=== PATIENT | female | born 1960 | race Caucasian/White ===

== ENCOUNTER 2020-01-20 09:54 | Outpatient (CLI) | payer OTHER, SELFPAY ==
--- NOTE | ~2020-01-20 | MM_ITS ---
EXAMINATION: MM screening [facility] BI w patricia HISTORY: Screening mammogram TECHNIQUE: Craniocaudal and mediolateral oblique 3-D tomosynthesis images were obtained and synthetic 2-D images were generated. CAD analysis was submitted and interpreted. COMPARISON: 10/13/2015, 05/09/2012, 02/13/2011 BREAST PARENCHYMAL COMPOSITION: There are scattered areas of fibroglandular density. FINDINGS: RIGHT BREAST: There is a possible mass in the middle third of the central, slightly outer breast. LEFT BREAST: There is no evidence of suspicious mass, calcification, or architectural distortion to s uggest malignancy. There has been no significant interval change. IMPRESSION: 1. Possible right breast mass. 2. Additional mammographic views and possible breast ultrasound are recommended. BI-RADS Category 0: Incomplete: Needs additional imaging evaluation. Reviewed, dictated and finalized at location A. HAMMERER IMPRESSION: 1. Possible right breast mass. 2. Additional mammographic views and possible breast ultrasound are recommended . BI-RADS Category 0: Incomplete: Needs additional imaging evaluation.
== END 2020-01-20 09:55 | disposition home or self-care (01) ==
LOC: ANHIMG 09:57
PROVIDERS: PCP Internal Medicine; Visit Provider Nurse Practitioner
DX: Z12.31 Encounter for screening mammogram for malignant neoplasm of breast (principal); R92.8 Other abnormal and inconclusive findings on diagnostic imaging of breast
CPT/HCPCS: 77063; 77067

== ENCOUNTER 2020-02-19 13:10 | Outpatient (CLI) | payer OTHER, SELFPAY ==
--- NOTE | ~2020-02-19 | MMUS_ITS ---
EXAMINATION: MM diagnostic mammo unilat RT, US breast RT limited HISTORY: Follow-up possible right breast mass TECHNIQUE: Additional 3-D tomosynthesis images of the right breast were performed and synthetic 2-D i mages were generated. CAD analysis was submitted and interpreted. High resolution right breast ultras ound was performed. COMPARISON: Comparison to multiple prior studies sequentially, with oldest reviewed study dated 10/2011. BREAST PARENCHYMAL COMPOSITION: Breast composed of scattered areas of fibroglandular density. FINDINGS: MAMMOGRAPHIC FINDINGS: There is a focal asymmetry laterally in the right breast on CC view, middle third with no definite co rresponding abnormality by medial lateral or MLO views. ULTRASOUND: Right breast ultrasound: There is a normal heterogeneous echotexture without focal solid or cystic ma ss. IMPRESSION: 1. Focal asymmetry laterally in the right breast on CC view without corresponding sonographic abnorma lity. 2. Recommend 6 month follow-up diagnostic right mammogram BI-RADS category 3, probably benign findings. Reviewed, dictated and finalized at location A. DITION SUPERVISOR IMPRESSION: 1. Focal asymmetry laterally in the right breast on CC view without correspondi ng sonographic abnormality. 2. Recommend 6 month follow-up diagnostic right mammogram BI-RADS category 3, probably benign findings.
== END 2020-02-19 13:11 | disposition home or self-care (01) ==
LOC: ANHIMG 13:12
PROVIDERS: PCP Internal Medicine; Visit Provider Nurse Practitioner
DX: N63.10 Unspecified lump in the right breast, unspecified quadrant (principal); M81.0 Age-related osteoporosis without current pathological fracture; R92.8 Other abnormal and inconclusive findings on diagnostic imaging of breast
CPT/HCPCS: 76642; 77065

== ENCOUNTER 2020-09-15 11:49 | Outpatient (CLI) | payer OTHER, SELFPAY ==
--- NOTE | ~2020-09-15 | MM_ITS ---
EXAMINATION: MM diagnostic [facility] RT w patricia HISTORY: Follow-up right breast asymmetry TECHNIQUE: Additional 3-D tomosynthesis images of the right breast were performed and synthetic 2-D i mages were generated. CAD analysis was submitted and interpreted. COMPARISON: Comparison to multiple prior studies sequentially, with oldest reviewed study dated 10/2011. BREAST PARENCHYMAL COMPOSITION: Breast composed of scattered areas of fibroglandular density. FINDINGS: There are no suspicious masses, calcifications or architectural distortion in the right liane ast to suggest malignancy. IMPRESSION: 1. No mammographic evidence for malignancy in the right breast. 2. Routine yearly screening mammogram and regular clinical breast examination are recommended. BI-RADS Category 1: Negative Reviewed, dictated and finalized at location A. IMPRESSION: 1. No mammographic evidence for malignancy in the right breast. 2. Routine yearly screening mammogram and regular clinical breast examination a re recommended. BI-RADS Category 1: Negative
== END 2020-09-15 11:50 | disposition home or self-care (01) ==
LOC: ANHIMG 11:50
PROVIDERS: PCP Internal Medicine; Visit Provider Nurse Practitioner
DX: R92.8 Other abnormal and inconclusive findings on diagnostic imaging of breast (principal)
CPT/HCPCS: 77061; 77065; G0279

== ENCOUNTER 2021-10-26 12:03 | Outpatient (CLI) | payer OTHER, SELFPAY ==
--- NOTE | ~2021-10-26 | MM_ITS ---
EXAMINATION: MM screening [facility] BI w patricia HISTORY: Screening mammogram TECHNIQUE: Craniocaudal and mediolateral oblique 3-D tomosynthesis images were obtained and synthetic 2-D images were generated. CAD analysis was submitted and interpreted. COMPARISON: 09/15/2020, 02/19/2020, 01/20/2020 BREAST PARENCHYMAL COMPOSITION: There are scattered areas of fibroglandular density. FINDINGS: There is no suspicious mass, calcification, or architectural distortion to suggest malignan cy in either breast. There has been no suspicious interval change. IMPRESSION: 1. No mammographic evidence of malignancy. 2. Recommend routine screening mammography in one year. BI-RADS Category 1: Negative Reviewed, dictated and finalized at location A.
== END 2021-10-26 12:04 | disposition home or self-care (01) ==
PROVIDERS: PCP Internal Medicine; Visit Provider Internal Medicine
DX: Z12.31 Encounter for screening mammogram for malignant neoplasm of breast (principal)
CPT/HCPCS: 77063; 77067

== ENCOUNTER 2023-02-14 13:34 | Outpatient (CLI) | payer OTHER, SELFPAY ==
--- NOTE | ~2023-02-14 | MM_ITS ---
EXAMINATION: MM screening [facility] BI w patricia HISTORY: Screening mammogram TECHNIQUE: Craniocaudal and mediolateral oblique 3-D tomosynthesis images were obtained and synthetic 2-D images were generated. CAD analysis was submitted and interpreted. COMPARISON: 10/26/2021, 09/15/2020, 02/19/2020, 01/20/2020 BREAST PARENCHYMAL COMPOSITION: There are scattered areas of fibroglandular density. FINDINGS: No suspicious mass, calcification, or architectural distortion are identified in either liane ast to suggest malignancy. There has been no suspicious interval change. IMPRESSION: 1. No mammographic evidence of malignancy. 2. Recommend routine screening mammography in one year. BI-RADS Category 1: Negative Reviewed, dictated and finalized at location A. 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
== END 2023-02-14 13:35 | disposition home or self-care (01) ==
LOC: ANHIMG 13:36
PROVIDERS: PCP Internal Medicine; Visit Provider Internal Medicine
DX: Z12.31 Encounter for screening mammogram for malignant neoplasm of breast (principal)
CPT/HCPCS: 77063; 77067

== ENCOUNTER 2023-08-10 12:28 | Outpatient (CLI) | payer OTHER, SELFPAY ==
--- NOTE | 2023-08-10 16:50 | WPDPFTINT ---
PFT Procedure Performed PFT Procedure Performed Spirometry with Pre/Post Bronchodilator Plethysmography (Lung Vol) Diffusing Cap (DLCO) Flow Vol Loop PFT Interpretation This is a pulmonary function test with pre and post-bronchodilator spirometry, plethysmography and diffusing capacity. The test was performed and results interpreted in accordance with the 2019 and 2005 ATS/ERS Task Force guidelines respectively using the Global Lung Function Initiative-2012 reference equations. Patient demonstrated good effort and cooperation. Reproducibility criteria were met. The quality of the pre bronchodilator spirometry maneuver was Grade A and post bronchodilator spirometry maneuver was Grade A. Findings: Spirometry: The contour the inspiratory and expiratory flow tracing are normal. The pre bronchodilator FVC is 2.82 L, 88% predicted. The pre bronchodilator FEV1 is 1.94 L, 77% predicted. The pre bronchodilator FEV1: FVC ratio 69%. The post bronchodilator FVC is 2.95 L, representing a 5% increase. The post bronchodilator FEV1 is 1.95 L, representing no change. The post bronchodilator FEV1: FVC ratio is 66%. Plethysmography: The total lung capacity is 5.98 L, 115% predicted. The functional residual capacity is 3.62 L, 123% predicted. The residual volume is 2.87 L, 138% predicted. Diffusing capacity: The diffusing capacity unadjusted for hemoglobin and carboxyhemoglobin is 16.3, 75% predicted. The diffusing capacity adjusted for alveolar volume is 3.63, 83% predicted. Impression: The spirometry is normal without evidence of an obstructive abnormality. There is no significant improvement after inhaling a single dose of albuterol. The lung volumes are normal. The diffusing capacity is normal. There are no prior studies for comparison
== END 2023-08-10 12:29 | disposition home or self-care (01) ==
LOC: ANHPFT 12:29
PROVIDERS: PCP Clinical Nurse Specialist; Visit Provider Clinical Nurse Specialist
DX: R06.02 Shortness of breath (principal); J45.909 Unspecified asthma, uncomplicated
CPT/HCPCS: 94060; 94726; 94729

== ENCOUNTER 2024-10-23 16:40 | Inpatient (IN) | payer OTHER, SELFPAY ==
--- NOTE | ~2024-10-23 | CT_ITS ---
CTA CHEST CLINICAL HISTORY: +ddimer . COMPARISON: Chest x-ray earlier today TECHNIQUE: Helical CTA performed from thoracic inlet to upper abdomen 100 mL Omnipaque 350 Coronal, sagittal reformats. Multiplanar MIPS CT images acquired with automatic exposure control for dose reduction DLP: 734 mGy-cm FINDINGS: Pulmonary arteries: No PE. Thoracic Aorta: No dissection or aneurysm. Heart/pericardium: Cardiomegaly. RV/LV ratio: Normal. Coronary artery calcifications. Lungs/Pleura: Large right and moderate left pleural effusions. Interlobular septal thickening. Scattered groundglass opacity. Bilobed granuloma lingula with small calcification. Tracheobronchial tree: Patent. Central peribronchial thickening. Nodes: No enlarged nodes. Small nodes left axilla. Bones: No acute bony abnormality. Soft tissues: Body wall anasarca. Visualized upper abdomen: Gallbladder wall thickening. Hepatic steatosis. Colonic diverticula. Small hiatal hernia. IMPRESSION: 1. No PE. 2. Large right and small left pleural effusions, with pulmonary edema. 3. Gallbladder wall thickening; cholecystitis not excluded. Reviewed, dictated and finalized at location R.
--- NOTE | ~2024-10-23 | US_ITS ---
BILATERAL LOWER EXTREMITY VENOUS DUPLEX Clinical History: NEW AFIB, +DDIMER,TRICE . Comparison: None. Technique: Grayscale, color, duplex/spectral Doppler sonography bilateral lower extremities. Findings: Bilateral common femoral, femoral, popliteal veins compressible and color Doppler patent. Calf veins poorly seen due to leg swelling. Normal augmentation with distal compression. No internal echoes. IMPRESSION: 1. No fem-pop DVT either leg. 2. Calf veins poorly seen due to leg swelling. Reviewed, dictated and finalized at location R.
--- NOTE | ~2024-10-23 | XR_ITS ---
EXAMINATION: XR chest 2V DATE: 10/23/2024 17:20 INDICATION: Cardiac concerns TECHNIQUE: frontal and lateral views of the chest were obtained. COMPARISON: None FINDINGS: Small nodular opacity projecting over the lateral left midlung zone as well as anterior left fourth rib and the inferior left scapula. No other airspace opacities, pulmonary edema, pleural effusion or pneumothorax. Heart size is within normal limits conifer AP technique. Moderate to severe thoracic spo ndylosis. IMPRESSION: 1. No acute cardiopulmonary disease. 2. Small nodular opacity projecting over the lateral left midlung zone which appears relatively dense for size which suggests either a bone island in the left fourth rib or scapula calcified nodule related to old granulomatous disease. Could consider follow-up low-dose noncontrast chest CT to exclude a noncalcified pulmonary nodule. Reviewed, dictated and finalized at location A. IMPRESSION: 1. No acute cardiopulmonary disease. 2. Small nodular opacity projecting over the lateral left midlung zone which ap pears relatively dense for size which suggests either a bone island in the left fourth rib or scapula calcified nodule related to old granulomatous disease. C ould consider follow-up low-dose noncontrast chest CT to exclude a noncalcified pulmonary nodule.
[2024-10-23 16:43] VITALS: BP 144/78; PULSE 102; RESP 18; TEMP 36.6; O2SAT 99
--- NOTE | 2024-10-23 16:46 | ECG_ITS ---
Test Date: 2024-10-23 16:55:52 Measurements Intervals [place] Rate: 102 P: 56 CO: 140 QRS: -12 QRSD: 113 T: 114 QT: 355 QTc: 464 Interpretive Statements SINUS TACHYCARDIA WITH FREQUENT VENTRICULAR PREMATURE COMPLEXES LOW QRS VOLTAGE [QRS DEFLECTION < 0.5/1.0 mV IN LIMB/CHEST LEADS] POSSIBLE ANTERIOR MYOCARDIAL INFARCTION , PROBABLY OLD [30 ms Q WAVE IN V3/V4, OR R < 0.2 mV IN V4] NONSPECIFIC T-WAVE ABNORMALITY ABNORMAL ECG No previous ECG available for comparison Electronically Signed On 10-23-2024 18:01:15 CDT by Juni Rico M.D.
--- NOTE | 2024-10-23 16:47 | ED.ARRPALP ---
HPI - Arrhythmia/Palpitations General Chief Complaint: Arrhythmia/Palpitations <Brenda Rincon APRN - Last Filed: 10/23/24 16:49> Stated Complaint: Sent by MD new onset Afib-LE swelling/SOB <Brenda Rincon APRN - Last Filed: 10/23/24 16:49> Time Seen by Provider: 10/23/24 16:47 <Brenda Rincon APRN - Last Filed: 10/23/24 16:49> Focused HPI: Patient is a 64-year-old female who presents to the ER from her primary care provider's office. She reports she has been gradually experienced swelling in her feet and shortness of breath with exertion. Patient reports her primary care provider noticed her heart rate was irregular so he sent her to the ER for evaluation. She endorses a history of high blood pressure, hyperlipidemia, and asthma. Patient denies any recent fevers, chest pain, or new onset back pain. GENERAL: Well-appearing, well-nourished, and in no acute distress. HEAD: Normocephalic, atraumatic. CHEST: Clear to auscultation. ?No respiratory distress. HEART: Irregular rhythm NEURO: ?Alert and oriented x3. Patient screened in triage and initial orders placed.? ?Additional care and disposition to be based upon?diagnostic testing and treatment. <Brenda Rincon APRN - Last Filed: 10/23/24 16:49> History of Present Illness HPI narrative: agree w/ hpi <Keli Salgado MD - Last Filed: 10/24/24 05:28> Related Data Home Medications: Home Medications ?Medication ?Instructions ?Recorded ?Confirmed ?Last Taken ?Type fexofenadine 180 mg tablet 180 mg PO DAILY 12/15/19 10/24/24 10/23/24 08:00 History (Chelsy Allergy) 180 mg <Brenda Rincon APRN - Last Filed: 10/23/24 16:49> Allergies/Adverse Reactions: Allergies Allergy/AdvReac Type Severity Reaction Status Date / Time Penicillins Allergy Unknown Asthmatic Verified 10/23/24 15:30 response <Brenda Rincon APRN - Last Filed: 10/23/24 16:49> Review of Systems Review of Systems: All systems reviewed & are unremarkable except as noted in HPI and below <Keli Salgado MD - Last Filed: 10/24/24 05:28> [facility] Past Medical History Medical History: Medical History Congestive heart failure Obesity Breast mass, right Elevated blood sugar level Essential hypertension Mixed hyperlipidemia Postmenopausal Vitamin D deficiency <Brenda Rincon APRN - Last Filed: 10/23/24 16:49> Surgical History Surgical History: Surgical History No significant past surgical history <Brenda Rincon APRN - Last Filed: 10/23/24 16:49> Family History Family History: Family History Father , 10/01/2019 Diabetes mellitus Family history of type 2 diabetes mellitus A-fib Mother , 2019 Diabetes mellitus Family history of type 2 diabetes mellitus A-fib Congestive heart failure <Brenda Rincon APRN - Last Filed: 10/23/24 16:49> Social History Social History: Social History (Updated 10/24/24 @ 04:39 by Jeny Erwin APRN) Social History: Caffeine-tea. The patient lives with her life long partner margarita Redman. She has no children. 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 She denies any alcohol or tobacco use. Code status full code Smoking status: Never smoker Second hand tobacco smoke exposure: No Alcohol intake: never Substance use: never Substance use type: does not use Lack of Transportation: No Lack of Food: Never True Current Housing: I Have Housing Concerned About Future Housing: No Difficulty Paying Gas/Electric Bills: No Difficulty Paying for Meds: No Currently Unemployed: No Education: High School Diploma/GED Difficulty w/ Childcare or Family Care: No Spiritual care concerns: No <Brenda Rincon APRN - Last Filed: 10/23/24 16:49> Exam Narrative: EXAMINATION OF ORGAN SYSTEMS/BODY AREAS: Constitutional: Vital signs per nursing GENERAL: Quite out of breath with exertion HEAD: Normal with no signs of head trauma. EYES: EOMI, conjunctiva normal ENT: Hearing grossly intact LUNGS: Some rhonchi bilaterally lower lungs HEART: [Regular rate and rhythm] ABD: [Soft], [nontender to palpation] EXT: Normal range of motion, bilateral lower extremity edema SKIN: [No rashes or lesions.] NEURO: [Alert and oriented x 3. No gross focal sensory or strength deficits.] PSYCH: Normal affect <Keli Salgado MD - Last Filed: 10/24/24 05:28> Course Vital Signs Vital signs: Vital Signs Temperature 97.8 F 10/23/24 16:43 Pulse Rate 102 H 10/23/24 16:43 Respiratory Rate 18 10/23/24 16:43 Blood Pressure 144/78 H 10/23/24 16:43 Pulse Oximetry 99 10/23/24 16:43 Oxygen Delivery Room Air 10/23/24 16:43 Temperature 97.8 F 10/23/24 22:11 Pulse Rate 106 H 10/24/24 02:05 Respiratory Rate 24 H 10/24/24 02:05 Blood Pressure 138/94 H 10/24/24 02:05 Pulse Oximetry 90 10/24/24 02:05 Oxygen Delivery Room Air 10/23/24 16:43 <Brenda Rincon, DETECTIVE SERGEANT - Last Filed: 10/23/24 16:49> Vital Signs Temperature 97.8 F 10/23/24 16:43 Pulse Rate 102 H 10/23/24 16:43 Respiratory Rate 18 10/23/24 16:43 Blood Pressure 144/78 H 10/23/24 16:43 Pulse Oximetry 99 10/23/24 16:43 Oxygen Delivery Room Air 10/23/24 16:43 Temperature 97.8 F 10/23/24 22:11 Pulse Rate 106 H 10/24/24 02:05 Respiratory Rate 24 H 10/24/24 02:05 Blood Pressure 138/94 H 10/24/24 02:05 Pulse Oximetry 90 10/24/24 02:05 Oxygen Delivery Room Air 10/23/24 16:43 <Keli Salgado MD - Last Filed: 10/24/24 05:28> MDM - Arrhythmia/Palpitations MDM Narrative Medical decision making narrative: Patient with new onset AFib, new shortness of breath on exertion and lower extremity swelling, and I a.m. concerned for possible new onset CHF, versus pneumonia, PE. This showing bilateral effusions without PE, she does have elevated BNP, I will give a dose of Lasix, discussed with hospitalist for admission. EKG on my independent interpretation shows sinus tachycardia rate 102, frequent PVCs, [place] 140, QRS 113, QTC 464. Repeat EKG on my independent interpretation also does not show signs of atrial fibrillation. Patient agreeable to admission at this time so she can have workup for new CHF. <Keli Salgado MD - Last Filed: 10/24/24 05:28> Lab Data Result diagrams: 10/24/24 04:44 10/24/24 04:44 <Brenda Rincon APRN - Last Filed: 10/23/24 16:49> Labs: Lab Results 10/23/24 10/23/24 10/23/24 Range/Units 17:07 20:23 20:57 WBC 7.4 (4.5-10.0) K/mm3 RBC 3.62 L (4.2-5.4) M/mm3 Hgb 9.8 L (12.0-15.0) g/dL Hct 31.8 L (37.0-47.0) % MCV 87.8 (80-100) fl MCH 27.1 (26-34) pg MCHC 30.8 L (32-36) g/dl RDW 16.9 H (11.5-14.5) % Plt Count 236 (150-375) k/mm3 MPV 10.9 H (7.4-10.4) fl Immature Gran % (Auto) 0.3 (0-0.5) % Neut % (Auto) 72.4 (45.5-73.1) % Lymph % (Auto) 16.4 L (18.3-44.2) % [place] % (Auto) 7.5 (2.6-8.5) % Eos % (Auto) 2.3 (0-4.4) % Baso % (Auto) 1.1 (0.2-1.2) % Lymph # (Auto) 1.22 (0.9-3.2) K/mm3 [place] # (Auto) 0.6 (0.1-0.6) K/mm3 Eos # (Auto) 0.2 (0-0.3) K/mm3 Baso # (Auto) 0.1 (0.0-0.1) K/mm3 Abs Immat Gran (auto) 0.02 (0.00-0.031) K/mm3 Absolute Neuts (auto) 5.4 (1.3-6.7) K/mm3 Absolute Nucleated RBC 0.000 (0.0-0.012) K/mm3 Nucleated RBC % 0.0 (0.0-0.2) % PT 15.6 H (11.1-14.7) Seconds INR 1.3 APTT 28.4 (22.3-36.8) Seconds D-Dimer 0.84 H (<0.48) ug/mL Sodium 135 L (137-145) mmol/L Potassium 3.4 (3.4-5.0) mmol/L Chloride 103 (98-107) mmol/L Carbon Dioxide 23 (22-30) mmol/L Anion Gap 9 (4-12) mmol/L BUN 13 (7-17) mg/dL Creatinine 0.83 (0.7-1.0) mg/dL Estim Creat Clear Calc 71 ml/min Estimated GFR > 60 (59 - ) Glucose 117 H (65-110) mg/dL Calcium 8.7 (8.4-10.2) mg/dL Total Bilirubin 0.8 (0.2-1.3) mg/dL AST 42 H (14-36) U/L ALT 27 (6-35) U/L Alkaline Phosphatase 129 H (38-126) U/L Troponin I 0.015 0.033 D (0.000-0.034) ng/mL NT-Pro-B Natriuret Pep 5790 H (19.9-100) pg/mL Total Protein 6.7 (6.3-8.2) g/dL Albumin 3.6 (3.5-5.1) g/dL Urine Color Yellow (Yellow) Urine Appearance Clear (Clear) Urine pH 5.5 (5.0-9.0) Ur Specific [place] 1.015 (1.001-1.035) Urine Protein 1+ H (Negative) mg/dL Urine Glucose (UA) Negative (Negative) mg/dL Urine Ketones Negative (Negative) mg/dL Ur Blood (Man) Negative (Negative) Urine Nitrate Negative (Negative) Urine Bilirubin Negative (Negative) Urine Urobilinogen 0.2 (<2.0) mg/dL Leukocyte Esterase Rfl Negative (Negative) VENU/UL Urine RBC 0-2 (0-2) /hpf Urine WBC 0-5 (0-3) /hpf Ur Squamous Epith Cells Occasional (Few) /hpf Urine Bacteria Rare /hpf Urine Casts 0-2 <Brenda Rincon, DETECTIVE SERGEANT - Last Filed: 10/23/24 16:49> Lab Results 10/23/24 10/23/24 10/23/24 Range/Units 17:07 20:23 20:57 WBC 7.4 (4.5-10.0) K/mm3 RBC 3.62 L (4.2-5.4) M/mm3 Hgb 9.8 L (12.0-15.0) g/dL Hct 31.8 L (37.0-47.0) % MCV 87.8 (80-100) fl MCH 27.1 (26-34) pg MCHC 30.8 L (32-36) g/dl RDW 16.9 H (11.5-14.5) % Plt Count 236 (150-375) k/mm3 MPV 10.9 H (7.4-10.4) fl Immature Gran % (Auto) 0.3 (0-0.5) % Neut % (Auto) 72.4 (45.5-73.1) % Lymph % (Auto) 16.4 L (18.3-44.2) % [place] % (Auto) 7.5 (2.6-8.5) % Eos % (Auto) 2.3 (0-4.4) % Baso % (Auto) 1.1 (0.2-1.2) % Lymph # (Auto) 1.22 (0.9-3.2) K/mm3 [place] # (Auto) 0.6 (0.1-0.6) K/mm3 Eos # (Auto) 0.2 (0-0.3) K/mm3 Baso # (Auto) 0.1 (0.0-0.1) K/mm3 Abs Immat Gran (auto) 0.02 (0.00-0.031) K/mm3 Absolute Neuts (auto) 5.4 (1.3-6.7) K/mm3 Absolute Nucleated RBC 0.000 (0.0-0.012) K/mm3 Nucleated RBC % 0.0 (0.0-0.2) % PT 15.6 H (11.1-14.7) Seconds INR 1.3 APTT 28.4 (22.3-36.8) Seconds D-Dimer 0.84 H (<0.48) ug/mL Sodium 135 L (137-145) mmol/L Potassium 3.4 (3.4-5.0) mmol/L Chloride 103 (98-107) mmol/L Carbon Dioxide 23 (22-30) mmol/L Anion Gap 9 (4-12) mmol/L BUN 13 (7-17) mg/dL Creatinine 0.83 (0.7-1.0) mg/dL Estim Creat Clear Calc 71 ml/min Estimated GFR > 60 (59 - ) Glucose 117 H (65-110) mg/dL Calcium 8.7 (8.4-10.2) mg/dL Total Bilirubin 0.8 (0.2-1.3) mg/dL AST 42 H (14-36) U/L ALT 27 (6-35) U/L Alkaline Phosphatase 129 H (38-126) U/L Troponin I 0.015 0.033 D (0.000-0.034) ng/mL NT-Pro-B Natriuret Pep 5790 H (19.9-100) pg/mL Total Protein 6.7 (6.3-8.2) g/dL Albumin 3.6 (3.5-5.1) g/dL Urine Color Yellow (Yellow) Urine Appearance Clear (Clear) Urine pH 5.5 (5.0-9.0) Ur Specific [place] 1.015 (1.001-1.035) Urine Protein 1+ H (Negative) mg/dL Urine Glucose (UA) Negative (Negative) mg/dL Urine Ketones Negative (Negative) mg/dL Ur Blood (Man) Negative (Negative) Urine Nitrate Negative (Negative) Urine Bilirubin Negative (Negative) Urine Urobilinogen 0.2 (<2.0) mg/dL Leukocyte Esterase Rfl Negative (Negative) VENU/UL Urine RBC 0-2 (0-2) /hpf Urine WBC 0-5 (0-3) /hpf Ur Squamous Epith Cells Occasional (Few) /hpf Urine Bacteria Rare /hpf Urine Casts 0-2 <Keli Salgado MD - Last Filed: 10/24/24 05:28> Critical Care Time Critical Care Time Critical Care Time: Yes <Keli Salgado MD - Last Filed: 10/24/24 05:28> Total Critical Care Time: 31 <Keli Salgado MD - Last Filed: 10/24/24 05:28> Discharge Plan Discharge Clinical Impression: New onset of congestive heart failure <Brenda Rincon APRN - Last Filed: 10/23/24 16:49> Patient Disposition: Still a Patient <Brenda Rincon APRN - Last Filed: 10/23/24 16:49> Condition: Serious <Brenda Rincon APRN - Last Filed: 10/23/24 16:49>
[2024-10-23 17:24] LABS: Hematocrit 31.8 % (37.0-47.0); Hemoglobin 9.8 g/dL (12.0-15.0); Immature Granulocyte Percent A 0.3 % (0-0.5); Lymphocytes Absolute Auto 1.22 K/mm3 (0.9-3.2); Mean Corpuscular HGB Conc 30.8 g/dl (32-36); Mean Corpuscular Hemoglobin 27.1 pg (26-34); Mean Corpuscular Volume 87.8 fl (80-100); Nucleated Red Blood Cells Absolute Auto 0.000 K/mm3 (0.0-0.012); Nucleated Red Blood Cells Perc 0.0 % (0.0-0.2); Platelet Count Result 236 k/mm3 (150-375); Red Blood Count 3.62 M/mm3 (4.2-5.4); White Blood Count 7.4 K/mm3 (4.5-10.0)
[2024-10-23 17:37] LABS: INR 1.3; Prothrombin Time 15.6 Seconds (11.1-14.7)
[2024-10-23 17:38] LABS: Partial Thromboplastin Time 28.4 Seconds (22.3-36.8)
[2024-10-23 17:40] LABS: Alanine Aminotransferase 27 U/L (6-35); Albumin Level 3.6 g/dL (3.5-5.1); Alkaline Phosphatase 129 U/L (38-126); Anion Gap 9 mmol/L (4-12); Aspartate Amino Transferase 42 U/L (14-36); Bilirubin,Total 0.8 mg/dL (0.2-1.3); Blood Urea Nitrogen 13 mg/dL (7-17); Calcium 8.7 mg/dL (8.4-10.2); Carbon Dioxide 23 mmol/L (22-30); Chloride 103 mmol/L (98-107); Estimated CRCL calculation 71 ml/min; Estimated Glomerular Filt Rate > 60; Glucose 117 mg/dL (65-110); Potassium 3.4 mmol/L (3.4-5.0); Sodium 135 mmol/L (137-145); Total Protein 6.7 g/dL (6.3-8.2)
[2024-10-23 17:50] LABS: NT Pro B Type Natriuretic Pept 5790 pg/mL (19.9-100); Troponin I 0.015 ng/mL (0.000-0.034)
[2024-10-23 21:04] VITALS: BP 125/86; PULSE 101; RESP 18; O2SAT 94
[2024-10-23 21:05] LABS: Add Urine Microscopic? YES; Appearance Urine Clear (Clear); Glucose Urine UA Negative (Negative); Leukocyte Esterase Ur Negative LEU/UL (Negative); Nitrate Urine Negative (Negative); Non Pathogenic Casts 0-2; Specific Grav Ur 1.015 (1.001-1.035)
--- NOTE | 2024-10-23 21:08 | ECG_ITS ---
Test Date: 2024-10-23 20:19:57 Measurements Intervals [place] Rate: 96 P: 73 ID: [id number] QRS: -11 QRSD: 110 T: 114 QT: 323 QTc: 409 Interpretive Statements SINUS RHYTHM WITH OCCASIONAL VENTRICULAR PREMATURE COMPLEXES WITH OCCASIONAL SUPRAVENTRICULAR PREMATURE COMPLEXES LOW QRS VOLTAGE [QRS DEFLECTION < 0.5/1.0 mV IN LIMB/CHEST LEADS] POSSIBLE ANTERIOR MYOCARDIAL INFARCTION , PROBABLY OLD [30 ms Q WAVE IN V3/V4, OR R < 0.2 mV IN V4] ABNORMAL ECG Compared to ECG 10/23/2024 16:55:52 Sinus tachycardia no longer present T-wave abnormality no longer present Myocardial infarct finding still present Electronically Signed On 10-24-2024 08:05:53 CDT by Juni Rico M.D.
[2024-10-23 21:09] LABS: Troponin I 0.033 ng/mL (0.000-0.034)
[2024-10-23 22:11] VITALS: BP 139/76; PULSE 99; RESP 18; TEMP 36.6; O2SAT 100
[2024-10-24] VITALS (21 sets, daily range): BP systolic 103–149; BP diastolic 53–94; PULSE 80–106; RESP 16–24; TEMP 36.5–36.9; O2SAT 90–100
--- NOTE | 2024-10-24 | ECHO_ITS ---
Patient Info Name: Rafaela Paulson Age: 64 years : 1960 Gender: Female Ht: 65 in Wt: 225 lbs BSA: 2.21 m2 HR: 92 bpm BP: 138 / 94 mmHg Heart Rhythm: Atrial Fibrillation Technical Quality: Good Exam Date: 10/24/2024 10:22 AM Patient Status: O Admit Date: 10/24/2024 Exam Type: CA echo dop color flow w con Complete two-dimensional, color flow and Doppler transthoracic echocardiogram is performed with contrast to opacify the left ventricle and to improve the deliniation of the left ventricle endocardial borders. Staff Referring Physician: Keli Salgado Sld Teacher: Belia Melo Attending Provider: Mary Grider Contrast/Agitated Saline Contrast/Ag. Saline: Definity Amount: 2.00 ml Summary 1. Left ventricular enlargement with global systolic dysfunction ejection fraction approximately 30%. 2. Moderate left atrial enlargement. 3. Moderate to severe mitral regurgitation. 4. Moderate tricuspid regurgitation velocity suggests RV systolic pressure of 77 mm Hg. 5. Atrial fibrillation. 6. Definity contrast utilized to improve exam quality. Left Ventricle Left ventricular chamber dimension is moderately enlarged. Left ventricular systolic function is severely reduced, estimated at 25-30. Right Ventricle Right ventricular chamber dimension is mildly enlarged. Left Atria Left atrial chamber dimension is moderately enlarged. Right Atria Right atrial chamber dimension is mildly enlarged. Aortic Valve The aortic valve is trileaflet. There is mild aortic valve sclerosis. Pulmonic Valve The pulmonic valve is not well visualized. Mitral Valve The mitral valve has normal leaflets. There is moderate to severe mitral valve regurgitation. Tricuspid Valve The tricuspid valve leaflets are normal. There is mild to moderate tricuspid valve regurgitation. Severe pulmonary hypertension, estimated pulmonary arterial systolic pressure is 77 mmHg. Pericardium/Pleural The pericardium appears normal. Aorta The aortic root size at the sinus of Valsalva is normal. Left Ventricular Outflow Tract Name Value Normal LVOT 2D LVOT Diameter 1.8 cm LVOT Doppler LVOT Peak Velocity 128 cm/s LVOT Peak Gradient 7 mmHg LVOT Mean Gradient 3 mmHg LVOT VTI 22 cm LVOT Stroke Volume 55 ml LVOT CO 5.1 l/min LVOT CI 2.3 l/min/m2 Pulmonic Valve Name Value Normal RVOT Doppler RVOT Peak Velocity 75 cm/s RVOT Peak Gradient 2 mmHg PV Doppler PV Peak Velocity 93 cm/s PV Peak Gradient 3 mmHg Mitral Valve Name Value Normal MV Regurgitation Doppler MR Peak Gradient 133 mmHg MV Diastolic Function MV E Peak Velocity 131 cm/s MV A Peak Velocity 38 cm/s MV E/A 3.4 MV Decel Time (PW) 153 ms MV Annular TDI MV E/e' (Septal) 21.2 MV E/e' (Lateral) 12.3 MV E/e' (Average) 16.8 Tricuspid Valve Name Value Normal TV Regurgitation Doppler TR Peak Velocity 455 cm/s TR Peak Gradient 83 mmHg Estimated PAP/RSVP PA Systolic Pressure 77 mmHg <36 Aortic Valve Name Value Normal AV Doppler AV Peak Velocity 177 cm/s AV Peak Gradient 13 mmHg AV Area (Cont Eq Arturo) 1.8 cm2 AV DI (Arturo) 0.72 AV Regurgitation 2D LVOT Area 2.5 cm2 Ventricles Name Value Normal LV Dimensions 2D/MM IVS Diastolic Thickness (2D) 0.7 cm 0.6-1.0 LVID Diastole (2D) 5.5 cm 3.8-5.2 LVIW Diastolic Thickness (2D) 0.7 cm 0.6-0.9 LVID Systole (2D) 4.7 cm 2.2-3.5 LVOT Diameter 1.8 cm LV Mass (2D Cubed) 136.05 g 67.00-162.00 LV Mass Index (2D Cubed) 62 g/m2 43-95 Relative Wall Thickness (2D) 0.25 <=0.42 LV Fractional Shortening/Ejection Fraction 2D/MM LV Fractional Shortening (2D) 15 % 27-45 LV EF (2D Teichholz) 32 % LV Diastolic Volume (4C MOD) 145 ml LV EF (4C MOD) 17 % LV Diastolic Volume (2C MOD) 130 ml LV EF (2C MOD) 36 % LV Diastolic Volume (BP MOD) 138 ml 46-106 LV Diastolic Volume Index (BP MOD) 62 ml/m2 29-61 LV Systolic Volume (BP MOD) 99 ml 14-42 LV Systolic Volume Index (BP MOD) 45 ml/m2 8-24 LV EF (BP MOD) 28 % 54-74 LV Diastolic Length (4C) 8.2 cm LV Systolic Length (4C) 7.6 cm LV Stroke Volume (4C MOD) 25 ml Atria Name Value Normal LA Dimensions LA Volume (4C A-L) 64 ml LA Volume (BP A-L) 73 ml RA Dimensions RA Systolic Major [place] Length (4C) 5.4 cm 2.2-2.8 RA Area (4C) 17.7 cm2 <=18.0 Report Signatures
[2024-10-24] MEDS: FUROSEMIDE INJ 40 MG/4 ML VIAL IV PUSH ×3 (00:59→16:10)
--- NOTE | 2024-10-24 04:20 | PM.IMHP ---
H&P: HPI History of Present Illness Date/Time: 10/24/24 04:20 Chief Complaint: Shortness of breath and possible new onset of AFib. Narrative: This is a 64-year-old female patient who stated she has been short of breath and had increased edema to her lower extremities since the August 08. She stated that she does have a history of congestive heart failure that was diagnosed many years ago. She stated that she has not had any exacerbation for many years. The patient came to the emergency room from her primary care office today due to the increased swelling to her feet and shortness of breath. The primary care provider noticed that her heart rate was irregular and then sitter to the emergency room for evaluation. Chest x-ray read was read as No acute cardiopulmonary disease. 2. Small nodular opacity projecting over the lateral left midlung zone which appears relatively dense for size which suggests either a bone island in the left fourth rib or scapula calcified nodule related to old granulomatous disease. Could consider follow-up low-dose noncontrast chest CT to exclude a noncalcified pulmonary nodule. CTA pulmonary was read as no pulmonary embolism. preliminary Venous Doppler was reported as no evidence for deep vein thrombosis involving the bilateral extremity. The patient is extremely short of breath with any mild exertion and stated she has not been able to lay flat. She stated that she does have a history of asthma and uses her inhalers. She did not notice any fever chills or any wheezing. She does not wear oxygen at home. Her H&H is 9.8 and 31.8 with a previous normal a year ago. D-dimer is elevated at 0.84. Troponins were negative x2. Her BNP is 5790. Her urine is negative for UTI. The patient was given Lasix in the emergency room. The patient is being admitted to observation status on the date of service of 10/24/2024. Review of Systems Constitutional: Constitutional: Reports as per HPI and Reports no additional constitutional complaints Eyes: Eyes: Reports as per HPI and Reports no additional eye complaints ENT: Reports system reviewed and no additional complaints, except as documented and Reports Normal hearing present Cardiovascular: Cardiovascular: Reports no additional cardiovascular complaints Respiratory: Respiratory: Reports as per HPI and Reports no additional respiratory complaints Gastrointestinal: Gastrointestinal: Reports as per HPI and Reports no additional gastrointestinal complaints Genitourinary: Genitourinary: Reports no additional female genitourinary complaints Musculoskeletal: Musculoskeletal: Reports no additional musculoskeletal complaints Integumentary/Breasts: Skin/Breast: Reports system reviewed and no additional complaints, except as docu Neurologic: Reports system reviewed and no additional complaints, except as documented and Reports Normal hearing present Psychiatric: Psychiatric: Reports no additional psychiatric complaints and Reports as per HPI Hematologic/Lymphatic: Hematologic/Lymphatic: Reports no additional hematologic/lymphatic complaints Allergic/Immunologic: Allergic/Immunologic: Reports no additional allergic/immunologic complaints [facility] Past Medical History Medical History Congestive heart failure Obesity Breast mass, right Elevated blood sugar level Essential hypertension Mixed hyperlipidemia Postmenopausal Vitamin D deficiency Surgical History Surgical History No significant past surgical history Family History Family History Father , 10/01/2019 Diabetes mellitus Family history of type 2 diabetes mellitus A-fib Mother , 2019 Diabetes mellitus Family history of type 2 diabetes mellitus A-fib Congestive heart failure Social History Social History (Updated 10/24/24 @ 04:39 by Jeny Erwin APRN) Social History: Caffeine-tea. The patient lives with her life long partner margarita Redman. She has no children. 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 She denies any alcohol or tobacco use. Code status full code Smoking status: Never smoker Second hand tobacco smoke exposure: No Alcohol intake: never Substance use: never Substance use type: does not use Lack of Transportation: No Lack of Food: Never True Current Housing: I Have Housing Concerned About Future Housing: No Difficulty Paying Gas/Electric Bills: No Difficulty Paying for Meds: No Currently Unemployed: No Education: High School Diploma/GED Difficulty w/ Childcare or Family Care: No Spiritual care concerns: No Meds Home Medications and Allergies Home Medications ?Medication ?Instructions ?Recorded ?Confirmed ?Type fexofenadine 180 mg tablet 180 mg PO DAILY 12/15/19 10/24/24 History (Chelsy Allergy) cholecalciferol (vitamin D3) 1,250 1,250 mcg PO WEEKLY #8 tabs 07/16/23 10/24/24 Rx mcg (50,000 unit) tablet pravastatin 40 mg tablet 40 mg PO DAILY #90 tabs 03/25/24 10/24/24 Rx albuterol sulfate 90 mcg/actuation See Rx Instructions .Route 07/11/24 10/24/24 Rx aerosol inhaler .COMPLEX #8.5 grams montelukast 10 mg tablet 10 mg PO DAILY #90 tabs 09/16/24 10/24/24 Rx losartan 100 mg tablet 100 mg PO DAILY #90 tabs 09/18/24 10/24/24 Rx Symbicort 80 mcg-4.5 mcg/actuation 2 puff inhalation BID #10.2 grams 09/29/24 10/24/24 Rx HFA aerosol inhaler (budesonide-formoterol) Allergies Allergy/AdvReac Type Severity Reaction Status Date / Time Penicillins Allergy Unknown Asthmatic Verified 10/23/24 15:30 response Vital Signs Vital Signs - 24 hr 10/23/24 16:43 10/23/24 21:04 10/23/24 22:11 Temperature 97.8 F 97.8 F Pulse Rate 102 H 101 H 99 Respiratory Rate 18 18 18 Blood Pressure 144/78 H 125/86 139/76 Pulse Oximetry 99 94 100 Oxygen Delivery Room Air 10/24/24 00:50 10/24/24 01:40 Temperature Pulse Rate 81 84 Respiratory Rate 18 18 Blood Pressure 113/83 149/79 H Pulse Oximetry 98 97 Oxygen Delivery Exam Const: General: cooperative, comfortable, no acute distress, well developed, alert, awake, Physically active, ill appearing, tired appearing, average body habitus, well nourished and obese Nutritional Appearance: well nourished Orientation/consciousness: oriented to person, oriented to place, oriented to time and patient oriented x3 Limitations: no limitations HENMT: Head: normal to inspection, No palpable skull fracture present, normocephalic, atraumatic and abrasion Ears: hearing grossly normal bilaterally and external ears normal Eyes: General: appearance normal, both eyes and all related structures Alignment and Position: alignment normal Periorbital: periorbital findings normal Eyelids: eyelids normal Neck: Neck: normal visual inspection, full ROM, no lymphadenopathy, trachea midline and supple Chest: Chest palpation & inspection: normal inspection of the chest Resp: Effort & Inspection: normal respiratory effort Auscultation: clear to auscultation bilaterally Cardio: Palpation: normal PMI Rate: regular rate Rhythm: regular rhythm Heart sounds: S1 normal heart sound present and S2 normal heart sound present Peripheral pulses: Peripheral pulses 2+ throughout GI: Inspection: normal to inspection Percussion: Yes normal to percussion Auscultation: normal bowel sounds Rectal Exam: deferred : General: Yes no CVA tenderness Back/Spine/Pelvis: Back: no CVA tenderness Skin: General skin exam: normal color Lesions: no lesions Rashes: no rashes Trauma: no lacerations or abrasions Wounds: no wounds Hair: normal Nails: normal Other: Dry skin to lower extremities Neuro: General: oriented to person, oriented to place, oriented to time and patient oriented x3 Cranial nerves: Yes Equal, round and reactive pupils present and Yes Normal hearing present Cognition (Neuro): normal cognition Speech: normal speech Gait exam (Neuro): Normal gait present Motor exam (neuro): 5/5 motor strength present throughout Sensory Exam: normal sensation Extrem: General: normal to inspection Right upper extremity: normal to inspection and shoulder/upper arm Left upper extremity: normal to inspection and shoulder/upper arm Right lower extremity: normal to inspection, edema and lower leg Details: localized swelling Left lower extremity: normal to inspection and lower leg Details: tenderness and pitting edema Other: 2+ pitting edema noted to bilateral lower extremities. She has dry flaky skin to lower extremities. Her pedal pulses were dopplerable as it was difficult to palpate her pedal pulses due to the edema. Psych: Appearance: grossly normal Mental Status: mental status grossly normal Speech and movement: Normal speech and movement present Affect: normal affect Attitude: cooperative Thought process: Normal thought process present Thought content: Yes Normal thought content present Insight: Good insight present (Psych) Judgement: Good judgement present (Psych) H&P: Results Labs Labs: Short CBC 10/23/24 Range/Units 17:07 WBC 7.4 (4.5-10.0) K/mm3 Hgb 9.8 L (12.0-15.0) g/dL Hct 31.8 L (37.0-47.0) % Plt Count 236 (150-375) k/mm3 [facility] 10/23/24 17:07 Sodium 135 L Potassium 3.4 Chloride 103 Carbon Dioxide 23 BUN 13 Creatinine 0.83 Glucose 117 H Calcium 8.7 Cardiac Enzymes 10/23/24 10/23/24 Range/Units 17:07 20:23 Troponin I 0.015 0.033 D (0.000-0.034) ng/mL Liver Function 10/23/24 Range/Units 17:07 Total Bilirubin 0.8 (0.2-1.3) mg/dL AST 42 H (14-36) U/L ALT 27 (6-35) U/L Alkaline Phosphatase 129 H (38-126) U/L Albumin 3.6 (3.5-5.1) g/dL Urine 10/23/24 Range/Units 20:57 Urine Color Yellow (Yellow) Urine Appearance Clear (Clear) Urine pH 5.5 (5.0-9.0) Ur Specific [place] 1.015 (1.001-1.035) Urine Protein 1+ H (Negative) mg/dL Urine Glucose (UA) Negative (Negative) mg/dL ECG Interpretation: 96 LA 154 QRSd 110 QT 323 QTc 409 --[place]-- P 73 QRS -11 T 114 SINUS RHYTHM WITH OCCASIONAL VENTRICULAR PREMATURE COMPLEXES WITH OCCASIONAL SUPRAVENTRICULAR PREMATURE COMPLEXES LOW QRS VOLTAGE [QRS DEFLECTION < 0.5/1.0 mV IN LIMB/CHEST LEADS] POSSIBLE ANTERIOR MYOCARDIAL INFARCTION , PROBABLY OLD [30 ms Q WAVE IN V3/V4, OR R < 0.2 mV IN V4] Compared to ECG 10/23/2024 16:55:52 Sinus tachycardia no longer present T-wave abnormality no longer present Myocardial infarct finding still present Imaging CT scan - chest: Radiologist's impression: Impressions Chest X-Ray 10/23/24 17:25 IMPRESSION: 1. No acute cardiopulmonary disease. 2. Small nodular opacity projecting over the lateral left midlung zone which appears relatively dense for size which suggests either a bone island in the left fourth rib or scapula calcified nodule related to old granulomatous disease. Could consider follow-up low-dose noncontrast chest CT to exclude a noncalcified pulmonary nodule. Assessment and Plan Assessment and plan (1) Congestive heart failure: Code(s): I50.9 - Heart failure, unspecified Status: Acute Assessment and Plan: -the patient was given Lasix in the emergency room. Continue with IV Lasix. -strict I&O -daily weight -cardiology has been counseled -an echo has been ordered -the patient is dyspneic with laying flat and minimal exertion. -heart healthy diet -although D-dimer was slightly elevated her CTA and preliminary Dopplers were reported as negative. Please see full final report -she has 2+ pitting edema. -her pedal pulses were doppler able as it was difficult to find her pedal pulse with palpation due to the edema. -the patient was sent to the emergency room for possible AFib however her EKG shows sinus rhythm with occasional ventricular premature complexes with occasional supraventricular premature complexes. There are noticeable P-waves and heart rate is regular -the patient may benefit from a Holter monitor. No anticoagulation was started at this time. -continue with losartan (2) Essential hypertension: Code(s): I10 - Essential (primary) hypertension Status: Acute Assessment and Plan: -continue with losartan -current blood pressure is 149/79. -continue to monitor daily BMP (3) Mixed hyperlipidemia: Code(s): E78.2 - Mixed hyperlipidemia Status: Acute Assessment and Plan: Continue with pravastatin (4) Asthma: Qualifiers: Asthma complication type: unspecified Asthma persistence: unspecified Asthma severity: unspecified severity Qualified Code(s): J45.909 - Unspecified asthma, uncomplicated Code(s): J45.909 - Unspecified asthma, uncomplicated Status: Acute Assessment and Plan: -continue with Singulair -continue with Symbicort -continue with albuterol inhaler (5) Obesity: Qualifiers: Body mass index: BMI 33.0-33.9 Obesity classification: adult class 1 (BMI 30 - 34.9) Obesity type: due to excess calories Serious obesity comorbidity presence: without serious comorbidity Qualified Code(s): E66.09 - Other obesity due to excess calories; Z68.33 - Body mass index [BMI] 33.0-33.9, adult Code(s): E66.9 - Obesity, unspecified Status: Acute Assessment and Plan: -daily weight -may consider dietary consult -heart healthy diet. Quality VTE Prophylaxis VTE prophylaxis: mechanical ordered
--- NOTE | 2024-10-24 04:43 | ADMGEN ---
This patient, Rafaela Paulson, was admitted to IMU Room 200-01. Patient/family oriented to hospital policies and general routines including ID bracelet, bed and alarms, visiting hours, pain management, procedures, bathroom and other care routines, personal items, smoking policy, room service/diet, and visiting hours. Information on how to activate the Rapid Response Team has been discussed. Patient/Family are encouraged to report perceived risks to care and to ask questions if they do not understand what they are told or what they should do.
[2024-10-24 04:54] LABS: Hematocrit 30.7 % (37.0-47.0); Hemoglobin 9.7 g/dL (12.0-15.0); Immature Granulocyte Percent A 0.6 % (0-0.5); Lymphocytes Absolute Auto 1.25 K/mm3 (0.9-3.2); Mean Corpuscular HGB Conc 31.6 g/dl (32-36); Mean Corpuscular Hemoglobin 27.2 pg (26-34); Mean Corpuscular Volume 86.0 fl (80-100); Nucleated Red Blood Cells Absolute Auto 0.000 K/mm3 (0.0-0.012); Nucleated Red Blood Cells Perc 0.0 % (0.0-0.2); Platelet Count Result 245 k/mm3 (150-375); Red Blood Count 3.57 M/mm3 (4.2-5.4); White Blood Count 7.2 K/mm3 (4.5-10.0)
[2024-10-24 05:07] LABS: Anion Gap 8 mmol/L (4-12); Blood Urea Nitrogen 12 mg/dL (7-17); Calcium 8.6 mg/dL (8.4-10.2); Carbon Dioxide 22 mmol/L (22-30); Chloride 104 mmol/L (98-107); Estimated CRCL calculation 73 ml/min; Estimated Glomerular Filt Rate > 60; Glucose 109 mg/dL (65-110); Potassium 3.1 mmol/L (3.4-5.0); Sodium 134 mmol/L (137-145)
[2024-10-24 05:22] LABS: Troponin I 0.036 ng/mL (0.000-0.034)
--- NOTE | 2024-10-24 06:32 | PC.NURSE ---
pt desats to 80's when pivoting from bed to bed side commode. on 4 l nc. pt educated on importance of not getting out of the bed and purewick applied.
--- NOTE | 2024-10-24 08:26 | CONS_ITS ---
Report recreated on 11/05/24. Original report was signed by Mirna Howard APRN on 10/24/24 at 0849. ADDENDUM error Addendum Documented By: Santa Liao 10/27/24 1107 Addendum Signed By: <Electronically signed by [id number] Sta>10/27/24 1107 Assessment and Plan Assessment and plan (1) New onset of congestive heart failure: Code(s): I50.9 - Heart failure, unspecified Status: Acute (2) Essential hypertension: Code(s): I10 - Essential (primary) hypertension Status: Acute (3) Mixed hyperlipidemia: Code(s): E78.2 - Mixed hyperlipidemia Status: Acute (4) Elevated troponin level: Code(s): R79.89 - Other specified abnormal findings of blood chemistry Status: Acute (5) Vitamin D deficiency: Code(s): E55.9 - Vitamin D deficiency, unspecified Status: Acute (6) Obesity: Qualifiers: Obesity type: due to excess calories Obesity classification: adult class 1 (BMI 30 - 34.9) Serious obesity comorbidity presence: without serious comorbidity Body mass index: BMI 33.0-33.9 Qualified Code(s): E66.09 - Other obesity due to excess calories; Z68.33 - Body mass index [BMI] 33.0-33.9, adult Code(s): E66.9 - Obesity, unspecified Status: Acute Plan Shortness of breath: Most likely secondary to acute decompensated HF. She presents with SOB with activity and bilateral LE edema. CTA chest negative for PE, but does how large right and small left pleural effusions. Her pBNP is elevated at 5790. Agree with IV diuresis at this time. Will need accurate I&O. Will check echo to look for any LV dysfunction or wall motion abnormality. Continue losartan 100mg daily. Will add Toprol XL 25 mg daily. Consider SGLT-2 prior to discharge Elevated troponin. Initial troponin negative, second troponin of 0.036, will repeat. EKG sinus tachycardia with no acute ST/T wave changes. Elevation most likely represents demand ischemia in the setting of CHF. She however, will most likely benefit from ischemic w/u with cath vs stress test pending echo results and hospital course. Will add Toprol XL. Echo pending. Continue pravastatin. Add asa 81 mg daily NSVT. Noted to have 8 beat run overnight. Will add Toprol XL. Will replace potassium. Check Magnesium and replete if less than 2. Echo is pending Hypertension. BP slightly above goal this am. Give her losartan 100mg. Will add Toprol XL 25 mg daily Hyperlipidemia: on pravastatin. Will check lipid panel Elevatd D-dimer. CTA chest negative for PE and venous doppler negative for DVT Borderline diabetic: Last Hemoglobin A1C of 6.1%, can repeat. Obesity. Weight loss encouraged Vitamin D Deficiency: On replacement therapy. History of Present Illness History of Present Illness Consult date/time: 10/24/24 08:26 Requesting physician: Jeny Erwin APRN Consult reason: shortness of breath Reason For Visit: new afib, CHF Narrative: Rafaela Paulson is a 64 y.o. female with a PMH of asthma, hypertension, hyperlipidemia and obesity who presented to the ER with c/o LE edema and shortness of breath. She reports that at the beginning of August she started noted swelling in her bilateral feet, she had some lasix at home that she took, but it did not help. She reports edema persisted and became more progressive. She then 3 weeks ago began noting shortness of breath with any activity. She states she was unable to sleep lying flat or on her right side. She went to see her PCP yesterday and was sent to the ER for further evaluation. We were consulted for CHF and possible atrial fibrillation Review of Systems 2 Review of Systems: All systems reviewed & are unremarkable except as noted in HPI and below (in HPI ) FOR[facility]LY [facility] Past Medical History Medical History Congestive heart failure Obesity Breast mass, right Elevated blood sugar level Essential hypertension Mixed hyperlipidemia Postmenopausal Vitamin D deficiency Surgical History Surgical History No significant past surgical history Family History Family History Father , 10/01/2019 Diabetes mellitus Family history of type 2 diabetes mellitus A-fib Mother , 2019 Diabetes mellitus Family history of type 2 diabetes mellitus A-fib Congestive heart failure Social History Social History (Updated 10/24/24 @ 04:39 by KEN Juarez Social History: Caffeine-tea. The patient lives with her life long partner margarita Redman. She has no children. 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 She denies any alcohol or tobacco use. Code status full code Smoking status: Never smoker Second hand tobacco smoke exposure: No Alcohol intake: never Substance use: never Substance use type: does not use Lack of Transportation: No Lack of Food: Never True Current Housing: I Have Housing Concerned About Future Housing: No Difficulty Paying Gas/Electric Bills: No Difficulty Paying for Meds: No Currently Unemployed: No Education: High School Diploma/GED Difficulty w/ Childcare or Family Care: No Spiritual care concerns: No Meds Home Medications and Allergies Home Medications ?Medication ?Instructions ?Recorded ?Confirmed ?Type fexofenadine 180 mg tablet 180 mg PO DAILY 12/15/19 10/24/24 Histor y ([facility] Allergy) cholecalciferol (vitamin D3) 1,250 1,250 mcg PO WEEKLY #8 tabs 07/16/23 Rx mcg (50,000 unit) tablet pravastatin 40 mg tablet 40 mg PO DAILY #90 tabs 03/25/24 5 Rx albuterol sulfate 90 mcg/actuation See Rx Instructions .Route 07/11/24 10/24/24 Rx aerosol inhaler .COMPLEX #8.5 grams montelukast 10 mg tablet 10 mg PO DAILY #90 tabs 09/16/24 5 Rx losartan 100 mg tablet 100 mg PO DAILY #90 tabs 09/18/24 Rx Symbicort 80 mcg-4.5 mcg/actuation 2 puff inhalation BID #10.2 grams 10/24/24 Rx HFA aerosol inhaler (budesonide-formoterol) Allergies Allergy/AdvReac Type Severity Reaction Status Date / Time Penicillins Allergy Unknown Asthmatic Verified 10/23/24 15:30 response Vital Signs Vital Signs - 24 hr 10/23/24 16:43 10/23/24 21:04 10/23/24 22:11 Temperature 36.6 C 36.6 C Pulse Rate 102 H 101 H 99 Respiratory Rate 18 18 18 Blood Pressure 144/78 H 125/86 139/76 Pulse Oximetry 99 94 100 Oxygen Delivery Room Air Oxygen Flow Rate 10/24/24 00:50 10/24/24 01:40 10/24/24 02:05 Temperature Pulse Rate 81 84 106 H Respiratory Rate 18 18 24 H Blood Pressure 113/83 149/79 H 138/94 H Pulse Oximetry 98 97 90 Oxygen Delivery Oxygen Flow Rate 10/24/24 05:38 10/24/24 06:00 10/24/24 07:56 Temperature 36.9 C Pulse Rate 92 102 H Respiratory Rate 20 Blood Pressure 144/69 H Pulse Oximetry 97 100 Oxygen Delivery Nasal Cannula Oxygen Flow Rate 3 Exam 2 Const: General: comfortable and no acute distress Neck: Neck: supple and no JVD Resp: Effort & Inspection: normal respiratory effort Auscultation: diminished lung sounds (in bases ) bilateral Cardio: Rate: tachycardic Rhythm: regular rhythm Other: normal S1, S2 Skin: General skin exam: normal color Neuro: Speech: normal speech Extrem: General: edema (+2-3 ) bilateral Psych: Mental Status: mental status grossly normal Results Labs and Meds 10/24/24 04:44 10/24/24 04:44 Lab results: Cardiac Enzymes 10/23/24 10/23/24 10/24/24 Range/Units 17:07 20:23 04:44 AST 42 H (14-36) U/L Troponin I 0.015 0.033 D 0.036 H* (0.000-0.034) ng/mL Coagulation 10/23/24 Range/Units 17:07 PT 15.6 H (11.1-14.7) Seconds APTT 28.4 (22.3-36.8) Seconds CBC 10/23/24 10/24/24 Range/Units 17:07 04:44 WBC 7.4 7.2 (4.5-10.0) K/mm3 RBC 3.62 L 3.57 L (4.2-5.4) M/mm3 Hgb 9.8 L 9.7 L (12.0-15.0) g/dL Hct 31.8 L 30.7 L (37.0-47.0) % Plt Count 236 245 (150-375) k/mm3 Lymph # (Auto) 1.22 1.25 (0.9-3.2) K/mm3 [place] # (Auto) 0.6 0.6 (0.1-0.6) K/mm3 Eos # (Auto) 0.2 0.1 (0-0.3) K/mm3 Baso # (Auto) 0.1 0.1 (0.0-0.1) K/mm3 Comprehensive Metabolic Panel 10/23/24 10/24/24 Range/Units 17:07 04:44 Sodium 135 L 134 L (137-145) mmol/L Potassium 3.4 3.1 L (3.4-5.0) mmol/L Chloride 103 104 (98-107) mmol/L Carbon Dioxide 23 22 (22-30) mmol/L BUN 13 12 (7-17) mg/dL Creatinine 0.83 0.79 (0.7-1.0) mg/dL Glucose 117 H 109 (65-110) mg/dL Calcium 8.7 8.6 (8.4-10.2) mg/dL AST 42 H (14-36) U/L ALT 27 (6-35) U/L Alkaline Phosphatase 129 H (38-126) U/L Total Protein 6.7 (6.3-8.2) g/dL Albumin 3.6 (3.5-5.1) g/dL Intake and Output 10/23/24 10/24/24 10/24/24 23:59 07:59 15:59 Output Total 1100 Balance -1100 Output: Urine 1100 Patient Weight 10/24/24 23:59 Weight 102.2 kg Imaging and Cardiology EKG results: report reviewed EKG Interpretation EKG: sinus rhythm (sinus tachycardia ) EKG shows: tachycardia (rate of [address]/T wave changes ) Please be advised this is a medical document. It is intended for [id number] communication. It is written in medical language and may contain unfamiliar abbreviations or verbiage. Medical documents are intended to carry relevant information, facts as evident, and the clinical opinion of the practitioner at the time of the encounter. This report may have been done utilizing a voice recognition system. Attempts have been made to correct errors. However, there may be uncorrected grammatical, spelling, and recognition errors present. The file time of this note does not necessarily represent the time the patient was seen. Report Initialized date/time: [facility] 10/24/24825 Electronically signed by: [id number] 10/24/24 0849 Jessica Christensen MD 10/24/24 0956
--- NOTE | 2024-10-24 08:40 | P.PNIM_ITS ---
Progress Note: A&P Assessment and Plan (1) Congestive heart failure: Code(s): I50.9 - Heart failure, unspecified Status: Acute (2) Essential hypertension: Code(s): I10 - Essential (primary) hypertension Status: Acute (3) Mixed hyperlipidemia: Code(s): E78.2 - Mixed hyperlipidemia Status: Acute (4) Asthma: Qualifiers: Asthma complication type: unspecified Asthma persistence: unspecified Asthma severity: unspecified severity Qualified Code(s): J45.909 - Unspecified asthma, uncomplicated Code(s): J45.909 - Unspecified asthma, uncomplicated Status: Acute (5) Obesity: Qualifiers: Body mass index: BMI 33.0-33.9 Obesity classification: adult class 1 (BMI 30 - 34.9) Obesity type: due to excess calories Serious obesity comorbidity presence: without serious comorbidity Qualified Code(s): E66.09 - Other obesity due to excess calories; Z68.33 - Body mass index [BMI] 33.0-33.9, adult Code(s): E66.9 - Obesity, unspecified Status: Acute Plan This is a 64-year-old female patient who stated she has been short of breath and had increased edema to her lower extremities since the August 08. She stated that she does have a history of congestive heart failure that was diagnosed many years ago. She stated that she has not had any exacerbation for many years. The patient came to the emergency room from her primary care office today due to the increased swelling to her feet shortness of breath. The primary care provider noticed that her heart rate was irregular and then sent her to the emergency room for evaluation. Chest x-ray read was read as No acute cardiopulmonary disease. 2. Small nodular opacity projecting over the lateral left midlung zone which appears relatively dense for size which suggests either a bone island in the left fourth rib or scapula calcified nodule related to old granulomatous disease. Could consider follow-up low-dose noncontrast chest CT to exclude a noncalcified pulmonary nodule. CTA pulmonary was read as no pulmonary embolism. Venous Doppler was read as no evidence for deep vein thrombosis involving the bilateral extremity. The patient is extremely short of breath with any mild exertion and stated she has not been able to lay flat. She stated that she does have a history of asthma and uses her inhalers. She did not notice any fever chills or any wheezing. She does not wear oxygen at home. Her H&H is 9.8 and 31.8 with a previous normal a year ago. D-dimer is elevated at 0.84. Troponins were negative x2. Her BNP is 5790. Her urine is negative for UTI. The patient was given Lasix in the emergency room. The patient is being admitted to observation status on the date of service of 10/24/2024. Acute on chronic congestive heart failure diastolic received IV Lasix. Chest x- ray negative however has 2+ pitting edema echo ordered cardiology consultation troponin x2 negative. CTA showed large right and small left pleural effusion with pulmonary edema. Continue IV diuresis with 40 mg IV b.i.d. Elevated troponin 0.015-0.03 3-0.036 Anemia Hypertension Hyperlipidemia Asthma Obesity DVT prophylaxis Lovenox Code status full code Subjective Date/time seen: 10/24/24 08:40 Interval history: No overnight events. Feeling better. Leg swollen. Shortness of breath with exertion. No chest pain. Review of Systems Review of Systems: All systems reviewed & are unremarkable except as noted in HPI and below Exam Narrative: GENERAL: Alert and oriented x3, in no respiratory distress HEAD: Normal with no signs of head trauma. EYES: EOMI, conjunctiva normal ENT: Hearing grossly intact LUNGS: Some rhonchi bilaterally lower lungs HEART: Regular rate and rhythm ABD: Soft, nontender to palpation EXT: Normal range of motion, bilateral lower extremity edema SKIN: No rashes or lesions. NEURO: Alert and oriented x 3. No gross focal sensory or strength deficits delete PSYCH: Normal affect Objective Data Vital Signs Vital Signs: Vital Signs - 24 hr 10/23/24 16:43 10/23/24 21:04 10/23/24 22:11 Temperature 97.8 F 97.8 F Pulse Rate 102 H 101 H 99 Respiratory Rate 18 18 18 Blood Pressure 144/78 H 125/86 139/76 Pulse Oximetry 99 94 100 Oxygen Delivery Room Air Oxygen Flow Rate 10/24/24 00:50 10/24/24 01:40 10/24/24 02:05 Temperature Pulse Rate 81 84 106 H Respiratory Rate 18 18 24 H Blood Pressure 113/83 149/79 H 138/94 H Pulse Oximetry 98 97 90 Oxygen Delivery Oxygen Flow Rate 10/24/24 05:38 10/24/24 06:00 10/24/24 07:56 Temperature 98.5 F Pulse Rate 92 102 H Respiratory Rate 20 Blood Pressure 144/69 H Pulse Oximetry 97 100 Oxygen Delivery Nasal Cannula Oxygen Flow Rate 3 Intake/Output Intake/Output: Intake & Output 10/21/24 10/22/24 10/23/24 10/24/24 23:59 23:59 23:59 23:59 Output Total 1100 Balance -1100 Meds/Results Medications: Active Medications Generic Name Dose Route Start Last Admin Trade Name Freq PRN Reason Stop Dose Admin Albuterol 2 puff 10/24/24 05:35 Albuterol Sulfate (*Sp) Aerosol 1 Puff INHALATION Q4H PRN Shortness Of Breath Or Wheezing Ergocalciferol 1,250 mcg 10/30/24 08:00 Ergocalciferol (Vitamin D2) 1,250 Mcg (50,000 Units) Capsule PO Th@0800 [facility] Furosemide 40 mg 10/24/24 09:00 Furosemide Inj 40 Mg/4 Ml Vial IV PUSH BID [facility] Loratadine 10 mg 10/24/24 09:00 Loratadine 10 Mg Tablet PO QAM [facility] Losartan Potassium 100 mg 10/24/24 09:00 Losartan Potassium 100 Mg Tablet PO DAILY [facility] Montelukast Sodium 10 mg 10/24/24 09:00 Montelukast Sodium 10 Mg Tablet PO DAILY [facility] Perflutren Lipid Microsphere 0 ml 10/24/24 00:58 Perflutren Lipid Microspheres 1.5 Ml Vial Diluted To 10 Ml Total Volume IV P [facility] 10/27/24 00:58 ONCE PRN adequate visualization Protocol Pravastatin Sodium 40 mg 10/24/24 09:00 Pravastatin Sodium 20 Mg Tablet PO DAILY [facility] Fluticasone/Salmeterol 2 puff 10/24/24 08:00 Fluticasone/Salmeterol 45-21 Mcg Inhaler 1 Puff INHALATION Q12HRT [facility] Radiology Results: ITS Impressions Chest X-Ray 10/23/24 17:25 IMPRESSION: 1. No acute cardiopulmonary disease. 2. Small nodular opacity projecting over the lateral left midlung zone which appears relatively dense for size which suggests either a bone island in the left fourth rib or scapula calcified nodule related to old granulomatous disease. Could consider follow-up low-dose noncontrast chest CT to exclude a noncalcified pulmonary nodule. Venous Doppler Study 10/24/24 06:05 IMPRESSION: 1. No fem-pop DVT either leg. 2. Calf veins poorly seen due to leg swelling. Chest CTA 10/24/24 07:01 IMPRESSION: 1. No PE. 2. Large right and small left pleural effusions, with pulmonary edema. 3. Gallbladder wall thickening; cholecystitis not excluded. Labs Labs: Laboratory Results - last 24 hr 10/23/24 10/23/24 10/23/24 17:07 20:23 20:57 WBC 7.4 RBC 3.62 L Hgb 9.8 L Hct 31.8 L MCV 87.8 MCH 27.1 MCHC 30.8 L RDW 16.9 H Plt Count 236 MPV 10.9 H Immature Gran % (Auto) 0.3 Neut % (Auto) 72.4 Lymph % (Auto) 16.4 L [place] % (Auto) 7.5 Eos % (Auto) 2.3 Baso % (Auto) 1.1 Lymph # (Auto) 1.22 [place] # (Auto) 0.6 Eos # (Auto) 0.2 Baso # (Auto) 0.1 Abs Immat Gran (auto) 0.02 Absolute Neuts (auto) 5.4 Absolute Nucleated RBC 0.000 Nucleated RBC % 0.0 PT 15.6 H INR 1.3 APTT 28.4 D-Dimer 0.84 H Sodium 135 L Potassium 3.4 Chloride 103 Carbon Dioxide 23 Anion Gap 9 BUN 13 Creatinine 0.83 Estim Creat Clear Calc 71 Estimated GFR > 60 Glucose 117 H Calcium 8.7 Total Bilirubin 0.8 AST 42 H ALT 27 Alkaline Phosphatase 129 H Troponin I 0.015 0.033 D NT-Pro-B Natriuret Pep 5790 H Total Protein 6.7 Albumin 3.6 Urine Color Yellow Urine Appearance Clear Urine pH 5.5 Ur Specific [place] 1.015 Urine Protein 1+ H Urine Glucose (UA) Negative Urine Ketones Negative Ur Blood (Man) Negative Urine Nitrate Negative Urine Bilirubin Negative Urine Urobilinogen 0.2 Leukocyte Esterase Rfl Negative Urine RBC 0-2 Urine WBC 0-5 Ur Squamous Epith Cells Occasional Urine Bacteria Rare Urine Casts 0-2 10/24/24 04:44 WBC 7.2 RBC 3.57 L Hgb 9.7 L Hct 30.7 L MCV 86.0 MCH 27.2 MCHC 31.6 L RDW 16.7 H Plt Count 245 MPV 10.6 H Immature Gran % (Auto) 0.6 H Neut % (Auto) 71.1 Lymph % (Auto) 17.4 L [place] % (Auto) 8.1 Eos % (Auto) 1.7 Baso % (Auto) 1.1 Lymph # (Auto) 1.25 [place] # (Auto) 0.6 Eos # (Auto) 0.1 Baso # (Auto) 0.1 Abs Immat Gran (auto) 0.04 H Absolute Neuts (auto) 5.1 Absolute Nucleated RBC 0.000 Nucleated RBC % 0.0 PT INR APTT D-Dimer Sodium 134 L Potassium 3.1 L Chloride 104 Carbon Dioxide 22 Anion Gap 8 BUN 12 Creatinine 0.79 Estim Creat Clear Calc 73 Estimated GFR > 60 Glucose 109 Calcium 8.6 Total Bilirubin AST ALT Alkaline Phosphatase Troponin I 0.036 H* NT-Pro-B Natriuret Pep Total Protein Albumin Urine Color Urine Appearance Urine pH Ur Specific [place] Urine Protein Urine Glucose (UA) Urine Ketones Ur Blood (Man) Urine Nitrate Urine Bilirubin Urine Urobilinogen Leukocyte Esterase Rfl Urine RBC Urine WBC Ur Squamous Epith Cells Urine Bacteria Urine Casts
[2024-10-24] MEDS: LOSARTAN POTASSIUM 100 MG TABLET PO (09:10)
[2024-10-24] MEDS: ASPIRIN 81 MG ENTERIC TABLET PO (09:10)
[2024-10-24] MEDS: PRAVASTATIN SODIUM 20 MG TABLET 40 MG PO (09:10)
[2024-10-24] MEDS: LORATADINE 10 MG TABLET PO (09:10)
[2024-10-24] MEDS: METOPROLOL SUCCINATE EXT REL 25 MG TABCR PO (09:11)
[2024-10-24] MEDS: MONTELUKAST SODIUM 10 MG TABLET PO (09:11)
[2024-10-24 09:23] LABS: Cholesterol 160 mg/dL (0-200); HDL Direct 61 mg/dL; Magnesium 1.9 mg/dL (1.6-2.3); Triglycerides 119 mg/dL (<150)
[2024-10-24 09:47] LABS: Iron 55 ug/dL (37-170)
[2024-10-24] MEDS: FLUTICASONE/SALMETEROL 45-21 MCG INHALER 1 PUFF 2 PUFF INHALATION ×2 (09:47→20:45)
[2024-10-24] MEDS: ALBUTEROL SULFATE (*SP) AEROSOL 1 PUFF 2 PUFF INHALATION ×2 (09:50→20:45)
[2024-10-24 09:56] LABS: Percent Iron Saturation 11 % (20-50)
[2024-10-24] MEDS: POTASSIUM CHLORIDE 20 MEQ PACKET (FOR LIQUID) 40 MEQ PO (10:00)
[2024-10-24 10:28] LABS: Ferritin 12.60 ng/mL (11.1-264)
[2024-10-24 10:34] LABS: Vitamin B12 552.0 pg/mL (239-931)
[2024-10-24 11:40] LABS: Troponin I 0.037 ng/mL (0.000-0.034)
[2024-10-24] MEDS: PERFLUTREN LIPID MICROSPHERES 1.5 ML VIAL DILUTED TO 10 ML TOTAL VOLUME IV PUSH (11:51)
--- NOTE | 2024-10-24 11:52 | IVDEFINITY ---
Prior to administration of IV Definity the patient was educated on the risks and benefits of the imaging enhancing agent including potential adverse side effects. The patient verbalized understanding. Allergies were verified. No exclusion criteria were identified and at least one of the following inclusion criteria were met: 1) physician request, 2) patient technically difficult to image (per the [place] [employer] guidelines of two or more segments not discernable within the apical view), or 3) questionable left ventricular function. ?
[2024-10-24 13:00] LABS: Hemoglobin A1C 6.0 % (<5.7)
[2024-10-25] VITALS (21 sets, daily range): BP systolic 100–133; BP diastolic 41–99; PULSE 70–94; RESP 16–20; TEMP 36.5–37.5; O2SAT 96–100
[2024-10-25 04:32] LABS: Hematocrit 28.6 % (37.0-47.0); Hemoglobin 8.9 g/dL (12.0-15.0); Immature Granulocyte Percent A 0.2 % (0-0.5); Lymphocytes Absolute Auto 1.63 K/mm3 (0.9-3.2); Mean Corpuscular HGB Conc 31.1 g/dl (32-36); Mean Corpuscular Hemoglobin 27.3 pg (26-34); Mean Corpuscular Volume 87.7 fl (80-100); Nucleated Red Blood Cells Absolute Auto 0.000 K/mm3 (0.0-0.012); Nucleated Red Blood Cells Perc 0.0 % (0.0-0.2); Platelet Count Result 192 k/mm3 (150-375); Red Blood Count 3.26 M/mm3 (4.2-5.4); White Blood Count 5.9 K/mm3 (4.5-10.0)
[2024-10-25 04:56] LABS: Alanine Aminotransferase 20 U/L (6-35); Albumin Level 3.1 g/dL (3.5-5.1); Alkaline Phosphatase 91 U/L (38-126); Anion Gap 6 mmol/L (4-12); Aspartate Amino Transferase 31 U/L (14-36); Bilirubin,Total 0.8 mg/dL (0.2-1.3); Blood Urea Nitrogen 12 mg/dL (7-17); Calcium 8.0 mg/dL (8.4-10.2); Carbon Dioxide 29 mmol/L (22-30); Chloride 99 mmol/L (98-107); Estimated CRCL calculation 66 ml/min; Estimated Glomerular Filt Rate > 60; Glucose 98 mg/dL (65-110); Magnesium 1.8 mg/dL (1.6-2.3); Potassium 2.6 mmol/L (3.4-5.0); Sodium 134 mmol/L (137-145); Total Protein 5.9 g/dL (6.3-8.2)
[2024-10-25] MEDS: MAGNESIUM SULF 2 GM/WATER 50ML 2 GM/50 ML BAG IVPB (06:33)
[2024-10-25] MEDS: POTASSIUM CHLORIDE 20 MEQ PACKET (FOR LIQUID) 40 MEQ PO ×3 (06:33→17:15)
[2024-10-25] MEDS: ALBUTEROL SULFATE (*SP) AEROSOL 1 PUFF 2 PUFF INHALATION ×2 (07:19→20:09)
[2024-10-25] MEDS: FLUTICASONE/SALMETEROL 45-21 MCG INHALER 1 PUFF 2 PUFF INHALATION ×2 (07:19→20:07)
--- NOTE | 2024-10-25 09:41 | PM.PNCARD ---
Progress Note: A&P Assessment and Plan (1) Congestive heart failure: Code(s): I50.9 - Heart failure, unspecified Status: Acute Plan 64-year-old lady presenting with volume overload, picture of CHF more right-sided than left-sided findings. Continue IV furosemide this morning and supplement potassium. Await echocardiographic findings in terms of determining the remainder of her GDMT . Patient reports no difficulty with memory however it is interesting that she has no recollection of having a left heart catheterization done in 2019 Manuel Bower MD [facility] Subjective Date/time seen: Date of service: 10/25/24 09:41 Interval history: Follow-up visit in this 64-year-old lady with: Volume overload, picture of CHF. Suspect diastolic heart failure, echocardiogram however is pending. She reports feeling better in terms of her dyspnea and edema after IV furosemide started yesterday. Hypokalemic this morning this is being supplemented. Discussed with patient note in her chart from her outside manager video games which reports a normal coronary angiogram having been done in 2019. She says she has no recollection of this. Exam Const: Other: Pleasant obese lady no apparent distress of any kind this morning HENMT: Mouth: Yes moist mucous membranes Eyes: Sclera: sclerae normal Neck: Neck: supple Other: No obvious JVD, difficult assessment given her body habitus Resp: Effort & Inspection: normal respiratory effort Auscultation: clear to auscultation bilaterally Other: No pulmonary rales are audible Cardio: Rate: regular rate Rhythm: regular rhythm GI: GI Palp: Yes Soft to palpation Auscultation: normal bowel sounds Skin: General skin exam: normal color Neuro: Other: Alert and oriented x3 Extrem: Other: Firm, brawny lower extremity edema. Reports that it is notably better compared to admission Objective Data Vital Signs Vital Signs: Vital Signs - 24 hr 10/24/24 09:51 10/24/24 09:51 10/24/24 10:00 Temperature Pulse Rate 96 96 95 Respiratory Rate 18 18 Blood Pressure Pulse Oximetry 98 Oxygen Delivery Nasal Cannula Oxygen Flow Rate 2 10/24/24 11:57 10/24/24 12:00 10/24/24 12:00 Temperature 36.9 C Pulse Rate 102 H 105 H Respiratory Rate 20 Blood Pressure 125/68 Pulse Oximetry 97 99 Oxygen Delivery Room Air Oxygen Flow Rate 10/24/24 14:00 10/24/24 16:00 10/24/24 16:00 Temperature 36.7 C Pulse Rate 100 93 Respiratory Rate 16 Blood Pressure 103/53 L Pulse Oximetry 98 98 Oxygen Delivery Room Air Oxygen Flow Rate 10/24/24 16:00 10/24/24 18:00 10/24/24 20:00 Temperature 36.5 C Pulse Rate 85 91 84 Respiratory Rate 18 Blood Pressure 103/76 Pulse Oximetry 100 Oxygen Delivery Oxygen Flow Rate 10/24/24 20:00 10/24/24 20:40 10/24/24 20:45 Temperature Pulse Rate 92 84 89 Respiratory Rate 18 Blood Pressure Pulse Oximetry 100 97 Oxygen Delivery Room Air Room Air Oxygen Flow Rate 10/24/24 22:00 10/24/24 23:53 10/24/24 23:55 Temperature 36.6 C Pulse Rate 87 80 80 Respiratory Rate 19 19 Blood Pressure 105/60 Pulse Oximetry 98 98 Oxygen Delivery Room Air Oxygen Flow Rate 10/25/24 00:00 10/25/24 02:00 10/25/24 04:00 Temperature 36.5 C Pulse Rate 78 71 71 Respiratory Rate 19 Blood Pressure 100/50 L Pulse Oximetry 96 Oxygen Delivery Oxygen Flow Rate 10/25/24 04:00 10/25/24 04:50 10/25/24 06:00 Temperature Pulse Rate 76 71 70 Respiratory Rate 19 Blood Pressure Pulse Oximetry 96 Oxygen Delivery Room Air Oxygen Flow Rate 10/25/24 07:20 10/25/24 07:23 10/25/24 07:23 Temperature 36.6 C Pulse Rate 90 93 83 Respiratory Rate 16 16 16 Blood Pressure 125/62 Pulse Oximetry 98 Oxygen Delivery Oxygen Flow Rate Intake/Output Intake/Output: Intake & Output 10/22/24 10/23/24 10/24/24 10/25/24 23:59 23:59 23:59 23:59 Intake Total 720 561 Output Total 4600 575 Balance -3880 -14 Meds/Results Medications: Active Medications Generic Name Dose Route Start Last Admin Trade Name Freq PRN Reason Stop Dose Admin Albuterol 2 puff 10/24/24 05:35 10/25/24 07:19 Albuterol Sulfate (*Sp) Aerosol 1 Puff INHALATION 2 puff Q4H PRN Administration Shortness Of Breath Or Wheezing Aspirin 81 mg 10/24/24 09:00 10/24/24 09:10 Aspirin 81 Mg Enteric Tablet PO 81 mg QAM VY Administration Ergocalciferol 1,250 mcg 10/30/24 08:00 Ergocalciferol (Vitamin D2) 1,250 Mcg (50,000 Units) Capsule PO Th@0800 VY Furosemide 40 mg 10/24/24 09:00 10/24/24 16:10 Furosemide Inj 40 Mg/4 Ml Vial IV PUSH 40 mg BID VY Administration Loratadine 10 mg 10/24/24 09:00 10/24/24 09:10 Loratadine 10 Mg Tablet PO 10 mg QAM VY Administration Losartan Potassium 100 mg 10/24/24 09:00 10/24/24 09:10 Losartan Potassium 100 Mg Tablet PO 100 mg DAILY VY Administration Metoprolol Succinate 25 mg 10/24/24 09:00 10/24/24 09:11 Metoprolol Succinate Ext Rel 25 Mg Tabcr PO 25 mg QAM VY Administration Montelukast Sodium 10 mg 10/24/24 09:00 10/24/24 09:11 Montelukast Sodium 10 Mg Tablet PO 10 mg DAILY VY Administration Potassium Chloride 40 meq 10/25/24 09:37 Potassium Chloride 20 Meq Packet (For Liquid) PO 10/25/24 09:38 ONCE ONE Pravastatin Sodium 40 mg 10/24/24 09:00 10/24/24 09:10 Pravastatin Sodium 20 Mg Tablet PO 40 mg DAILY VY Administration Fluticasone/Salmeterol 2 puff 10/24/24 08:00 10/25/24 07:19 Fluticasone/Salmeterol 45-21 Mcg Inhaler 1 Puff INHALATION 2 puff Q12HRT VY Administration Radiology Results: ITS Impressions Chest X-Ray 10/23/24 17:25 IMPRESSION: 1. No acute cardiopulmonary disease. 2. Small nodular opacity projecting over the lateral left midlung zone which appears relatively dense for size which suggests either a bone island in the left fourth rib or scapula calcified nodule related to old granulomatous disease. Could consider follow-up low-dose noncontrast chest CT to exclude a noncalcified pulmonary nodule. Venous Doppler Study 10/24/24 06:05 IMPRESSION: 1. No fem-pop DVT either leg. 2. Calf veins poorly seen due to leg swelling. Chest CTA 10/24/24 07:01 IMPRESSION: 1. No PE. 2. Large right and small left pleural effusions, with pulmonary edema. 3. Gallbladder wall thickening; cholecystitis not excluded. Labs Labs: Laboratory Results - last 24 hr 10/24/24 10/24/24 10/24/24 04:40 04:41 04:44 WBC RBC Hgb Hct MCV MCH MCHC RDW Plt Count MPV Immature Gran % (Auto) Neut % (Auto) Lymph % (Auto) Cros[place] % (Auto) Eos % (Auto) Baso % (Auto) Lymph # (Auto) [place] # (Auto) Eos # (Auto) Baso # (Auto) Abs Immat Gran (auto) Absolute Neuts (auto) Absolute Nucleated RBC Nucleated RBC % Sodium Potassium Chloride Carbon Dioxide Anion Gap BUN Creatinine Estim Creat Clear Calc Estimated GFR Glucose Hemoglobin A1c 6.0 H Calcium Magnesium Iron 55 TIBC 509 H % Saturation 11 L Ferritin 12.60 Total Bilirubin AST ALT Alkaline Phosphatase Troponin I Total Protein Albumin Vitamin B12 552.0 Folate 4.3 10/24/24 10/25/24 10:57 03:41 WBC 5.9 RBC 3.26 L Hgb 8.9 L Hct 28.6 L MCV 87.7 MCH 27.3 MCHC 31.1 L RDW 16.7 H Plt Count 192 MPV 11.3 H Immature Gran % (Auto) 0.2 Neut % (Auto) 56.5 Lymph % (Auto) 27.8 Crosby % (Auto) 10.6 H Eos % (Auto) 3.9 Baso % (Auto) 1.0 Lymph # (Auto) 1.63 Crosby # (Auto) 0.6 Eos # (Auto) 0.2 Baso # (Auto) 0.1 Abs Immat Gran (auto) 0.01 Absolute Neuts (auto) 3.3 Absolute Nucleated RBC 0.000 Nucleated RBC % 0.0 Sodium 134 L Potassium 2.6 L* Chloride 99 Carbon Dioxide 29 Anion Gap 6 BUN 12 Creatinine 0.88 Estim Creat Clear Calc 66 Estimated GFR > 60 Glucose 98 Hemoglobin A1c Calcium 8.0 L Magnesium 1.8 Iron TIBC % Saturation Ferritin Total Bilirubin 0.8 AST 31 ALT 20 Alkaline Phosphatase 91 Troponin I 0.037 H* Total Protein 5.9 L Albumin 3.1 L Vitamin B12 Folate
[2024-10-25] MEDS: ASPIRIN 81 MG ENTERIC TABLET PO (10:01)
[2024-10-25] MEDS: PRAVASTATIN SODIUM 20 MG TABLET 40 MG PO (10:02)
[2024-10-25] MEDS: FUROSEMIDE INJ 40 MG/4 ML VIAL IV PUSH (10:02)
[2024-10-25] MEDS: LORATADINE 10 MG TABLET PO (10:02)
[2024-10-25] MEDS: METOPROLOL SUCCINATE EXT REL 25 MG TABCR PO (10:02)
[2024-10-25] MEDS: MONTELUKAST SODIUM 10 MG TABLET PO (10:02)
[2024-10-25] MEDS: LOSARTAN POTASSIUM 100 MG TABLET PO (10:02)
[2024-10-25 10:12] LABS: Potassium 3.5 mmol/L (3.4-5.0)
--- NOTE | 2024-10-25 13:09 | P.PNIM_ITS ---
Progress Note: A&P Assessment and Plan (1) Congestive heart failure: Code(s): I50.9 - Heart failure, unspecified Status: Acute (2) Essential hypertension: Code(s): I10 - Essential (primary) hypertension Status: Acute (3) Mixed hyperlipidemia: Code(s): E78.2 - Mixed hyperlipidemia Status: Acute (4) Asthma: Qualifiers: Asthma severity: unspecified severity Asthma persistence: unspecified Asthma complication type: unspecified Qualified Code(s): J45.909 - Unspecified asthma, uncomplicated Code(s): J45.909 - Unspecified asthma, uncomplicated Status: Acute (5) Obesity: Qualifiers: Obesity type: due to excess calories Obesity classification: adult class 1 (BMI 30 - 34.9) Serious obesity comorbidity presence: without serious comorbidity Body mass index: BMI 33.0-33.9 Qualified Code(s): E66.09 - Other obesity due to excess calories; Z68.33 - Body mass index [BMI] 33.0-33.9, adult Code(s): E66.9 - Obesity, unspecified Status: Acute Plan This is a 64-year-old female patient who stated she has been short of breath and had increased edema to her lower extremities since the August 08. She stated that she does have a history of congestive heart failure that was diagnosed many years ago. She stated that she has not had any exacerbation for many years. The patient came to the emergency room from her primary care office today due to the increased swelling to her feet shortness of breath. The primary care provider noticed that her heart rate was irregular and then sent her to the emergency room for evaluation. Chest x-ray read was read as No acute cardiopulmonary disease. 2. Small nodular opacity projecting over the lateral left midlung zone which appears relatively dense for size which suggests either a bone island in the left fourth rib or scapula calcified nodule related to old granulomatous disease. Could consider follow-up low-dose noncontrast chest CT to exclude a noncalcified pulmonary nodule. CTA pulmonary was read as no pulmonary embolism. Venous Doppler was read as no evidence for deep vein thrombosis involving the bilateral extremity. The patient is extremely short of breath with any mild exertion and stated she has not been able to lay flat. She stated that she does have a history of asthma and uses her inhalers. She did not notice any fever chills or any wheezing. She does not wear oxygen at home. Her H&H is 9.8 and 31.8 with a previous normal a year ago. D-dimer is elevated at 0.84. Troponins were negative x2. Her BNP is 5790. Her urine is negative for UTI. The patient was given Lasix in the emergency room. The patient is being admitted to observation status on the date of service of 10/24/2024. Acute on chronic congestive heart failure diastolic received IV Lasix. Chest x- ray negative however has 2+ pitting edema echo ordered cardiology consultation troponin x2 negative. CTA showed large right and small left pleural effusion with pulmonary edema. Continue IV diuresis with 40 mg IV b.i.d. echo pending Elevated troponin 0.015-0.03 3-0.036 Anemia Hypertension Hyperlipidemia Asthma Obesity DVT prophylaxis Lovenox Code status full code Subjective Date/time seen: 10/25/24 13:09 Interval history: No overnight events. Feeling better. Off oxygen. Continues to diurese. Potassium replaced this a.m.. Review of Systems Review of Systems: All systems reviewed & are unremarkable except as noted in HPI and below Exam Narrative: GENERAL: Alert and oriented x3, in no respiratory distress HEAD: Normal with no signs of head trauma. EYES: EOMI, conjunctiva normal ENT: Hearing grossly intact LUNGS: Some rhonchi bilaterally lower lungs HEART: Regular rate and rhythm ABD: Soft, nontender to palpation EXT: Normal range of motion, bilateral lower extremity edema SKIN: No rashes or lesions. NEURO: Alert and oriented x 3. No gross focal sensory or strength deficits delete PSYCH: Normal affect Objective Data Vital Signs Vital Signs: Vital Signs - 24 hr 10/24/24 14:00 10/24/24 16:00 10/24/24 16:00 Temperature 98.0 F Pulse Rate 100 93 Respiratory Rate 16 Blood Pressure 103/53 L Pulse Oximetry 98 98 Oxygen Delivery Room Air 10/24/24 16:00 10/24/24 18:00 10/24/24 20:00 Temperature 97.7 F Pulse Rate 85 91 84 Respiratory Rate 18 Blood Pressure 103/76 Pulse Oximetry 100 Oxygen Delivery 10/24/24 20:00 10/24/24 20:40 10/24/24 20:45 Temperature Pulse Rate 92 84 89 Respiratory Rate 18 Blood Pressure Pulse Oximetry 100 97 Oxygen Delivery Room Air Room Air 10/24/24 22:00 10/24/24 23:53 10/24/24 23:55 Temperature 97.8 F Pulse Rate 87 80 80 Respiratory Rate 19 19 Blood Pressure 105/60 Pulse Oximetry 98 98 Oxygen Delivery Room Air 10/25/24 00:00 10/25/24 02:00 10/25/24 04:00 Temperature 97.7 F Pulse Rate 78 71 71 Respiratory Rate 19 Blood Pressure 100/50 L Pulse Oximetry 96 Oxygen Delivery 10/25/24 04:00 10/25/24 04:50 10/25/24 06:00 Temperature Pulse Rate 76 71 70 Respiratory Rate 19 Blood Pressure Pulse Oximetry 96 Oxygen Delivery Room Air 10/25/24 07:20 10/25/24 07:23 10/25/24 07:23 Temperature 97.8 F Pulse Rate 90 93 83 Respiratory Rate 16 16 16 Blood Pressure 125/62 Pulse Oximetry 98 Oxygen Delivery 10/25/24 08:00 10/25/24 10:02 10/25/24 11:39 Temperature 99.5 F Pulse Rate 93 88 Respiratory Rate 16 Blood Pressure 133/99 H Pulse Oximetry 98 99 Oxygen Delivery Room Air Intake/Output Intake/Output: Intake & Output 10/22/24 10/23/24 10/24/24 10/25/24 23:59 23:59 23:59 23:59 Intake Total 720 801 Output Total 4600 575 Balance -3880 226 Meds/Results Medications: Active Medications Generic Name Dose Route Start Last Admin Trade Name Freq PRN Reason Stop Dose Admin Albuterol 2 puff 10/24/24 05:35 10/25/24 07:19 Albuterol Sulfate (*Sp) Aerosol 1 Puff INHALATION 2 puff Q4H PRN Administration Shortness Of Breath Or Wheezing Aspirin 81 mg 10/24/24 09:00 10/25/24 10:01 Aspirin 81 Mg Enteric Tablet PO 81 mg QAM VY Administration Ergocalciferol 1,250 mcg 10/30/24 08:00 Ergocalciferol (Vitamin D2) 1,250 Mcg (50,000 Units) Capsule PO Th@0800 VY Furosemide 40 mg 10/24/24 09:00 10/25/24 10:02 Furosemide Inj 40 Mg/4 Ml Vial IV PUSH 40 mg BID VY Administration Loratadine 10 mg 10/24/24 09:00 10/25/24 10:02 Loratadine 10 Mg Tablet PO 10 mg QAM VY Administration Losartan Potassium 100 mg 10/24/24 09:00 10/25/24 10:02 Losartan Potassium 100 Mg Tablet PO 100 mg DAILY VY Administration Metoprolol Succinate 25 mg 10/24/24 09:00 10/25/24 10:02 Metoprolol Succinate Ext Rel 25 Mg Tabcr PO 25 mg QAM VY Administration Montelukast Sodium 10 mg 10/24/24 09:00 10/25/24 10:02 Montelukast Sodium 10 Mg Tablet PO 10 mg DAILY VY Administration Pravastatin Sodium 40 mg 10/24/24 09:00 10/25/24 10:02 Pravastatin Sodium 20 Mg Tablet PO 40 mg DAILY VY Administration Fluticasone/Salmeterol 2 puff 10/24/24 08:00 10/25/24 07:19 Fluticasone/Salmeterol 45-21 Mcg Inhaler 1 Puff INHALATION 2 puff Q12HRT VY Administration Radiology Results: ITS Impressions Chest X-Ray 10/23/24 17:25 IMPRESSION: 1. No acute cardiopulmonary disease. 2. Small nodular opacity projecting over the lateral left midlung zone which appears relatively dense for size which suggests either a bone island in the left fourth rib or scapula calcified nodule related to old granulomatous di sease. Could consider follow-up low-dose noncontrast chest CT to exclude a noncalcified pulmonary nodule. Venous Doppler Study 10/24/24 06:05 IMPRESSION: 1. No fem-pop DVT either leg. 2. Calf veins poorly seen due to leg swelling. Chest CTA 10/24/24 07:01 IMPRESSION: 1. No PE. 2. Large right and small left pleural effusions, with pulmonary edema. 3. Gallbladder wall thickening; cholecystitis not excluded. Labs Labs: Laboratory Results - last 24 hr 10/25/24 10/25/24 03:41 09:41 WBC 5.9 RBC 3.26 L Hgb 8.9 L Hct 28.6 L MCV 87.7 MCH 27.3 MCHC 31.1 L RDW 16.7 H Plt Count 192 MPV 11.3 H Immature Gran % (Auto) 0.2 Neut % (Auto) 56.5 Lymph % (Auto) 27.8 [place] % (Auto) 10.6 H Eos % (Auto) 3.9 Baso % (Auto) 1.0 Lymph # (Auto) 1.63 [place] # (Auto) 0.6 Eos # (Auto) 0.2 Baso # (Auto) 0.1 Abs Immat Gran (auto) 0.01 Absolute Neuts (auto) 3.3 Absolute Nucleated RBC 0.000 Nucleated RBC % 0.0 Sodium 134 L Potassium 2.6 L* 3.5 Chloride 99 Carbon Dioxide 29 Anion Gap 6 BUN 12 Creatinine 0.88 Estim Creat Clear Calc 66 Estimated GFR > 60 Glucose 98 Calcium 8.0 L Magnesium 1.8 Total Bilirubin 0.8 AST 31 ALT 20 Alkaline Phosphatase 91 Total Protein 5.9 L Albumin 3.1 L
--- NOTE | 2024-10-25 16:32 | PC.NURSE ---
On 10/25/24, the student, Zuleyka Blanchard, provided care and completed [facility] documentation on this patient. I have reviewed the student's documentation and agree with the findings.
[2024-10-26] VITALS (15 sets, daily range): BP systolic 99–120; BP diastolic 54–86; PULSE 78–105; RESP 16–22; TEMP 36.4–37; O2SAT 93–100
[2024-10-26] MEDS: ALBUTEROL SULFATE (*SP) AEROSOL 1 PUFF 2 PUFF INHALATION ×2 (08:04→20:02)
[2024-10-26] MEDS: FLUTICASONE/SALMETEROL 45-21 MCG INHALER 1 PUFF 2 PUFF INHALATION ×2 (08:04→20:02)
[2024-10-26 09:09] LABS: Hematocrit 31.9 % (37.0-47.0); Hemoglobin 9.7 g/dL (12.0-15.0); Mean Corpuscular HGB Conc 30.4 g/dl (32-36); Mean Corpuscular Hemoglobin 27.2 pg (26-34); Mean Corpuscular Volume 89.4 fl (80-100); Platelet Count Result 205 k/mm3 (150-375); Red Blood Count 3.57 M/mm3 (4.2-5.4); White Blood Count 6.8 K/mm3 (4.5-10.0)
[2024-10-26] MEDS: ASPIRIN 81 MG ENTERIC TABLET PO (09:24)
[2024-10-26] MEDS: LOSARTAN POTASSIUM 100 MG TABLET PO (09:24)
[2024-10-26] MEDS: POTASSIUM CHLORIDE 20 MEQ PACKET (FOR LIQUID) 40 MEQ PO (09:24)
[2024-10-26] MEDS: LORATADINE 10 MG TABLET PO (09:24)
[2024-10-26] MEDS: PRAVASTATIN SODIUM 20 MG TABLET 40 MG PO (09:24)
[2024-10-26] MEDS: MONTELUKAST SODIUM 10 MG TABLET PO (09:24)
[2024-10-26] MEDS: METOPROLOL SUCCINATE EXT REL 25 MG TABCR PO (09:24)
[2024-10-26] MEDS: FUROSEMIDE INJ 40 MG/4 ML VIAL IV PUSH (09:25)
[2024-10-26 09:53] LABS: Alanine Aminotransferase 27 U/L (6-35); Albumin Level 3.6 g/dL (3.5-5.1); Alkaline Phosphatase 90 U/L (38-126); Anion Gap 9 mmol/L (4-12); Aspartate Amino Transferase 36 U/L (14-36); Bilirubin,Total 0.6 mg/dL (0.2-1.3); Blood Urea Nitrogen 16 mg/dL (7-17); Calcium 8.4 mg/dL (8.4-10.2); Carbon Dioxide 25 mmol/L (22-30); Chloride 99 mmol/L (98-107); Estimated CRCL calculation 67 ml/min; Estimated Glomerular Filt Rate > 60; Glucose 161 mg/dL (65-110); Magnesium 2.1 mg/dL (1.6-2.3); Potassium 3.5 mmol/L (3.4-5.0); Sodium 133 mmol/L (137-145); Total Protein 6.7 g/dL (6.3-8.2)
--- NOTE | 2024-10-26 10:15 | P.PNCA_ITS ---
Progress Note: A&P Assessment and Plan (1) Congestive heart failure: Code(s): I50.9 - Heart failure, unspecified Status: Acute Plan will transition her diuretic to p.o. starting tomorrow. Anticipate discharge in the next 24-48 hours if she continues to improve clinically. It would be helpful to obtain records of the previous catheterization to make sure there is documentation of non diseased coronary arteries. Manuel Bower MD [facility] Subjective Date/time seen: date of service:10/26/24 10:16 Interval history: Follow-up visit in this 64-year-old lady with: Volume overload, picture of CHF. Suspect diastolic heart failure, echocardiogram however is pending. She reports feeling better in terms of her dyspnea and edema after IV furosemide started yesterday. Hypokalemic this morning this is being supplemented. Discussed with patient note in her chart from her outside learning operations specialist which reports a normal coronary angiogram having been done in 2019. She says she has no recollection of this. 10/26/2024: Patient is feeling better edema is resolving no shortness of breath. Echocardiographic results were discussed with the patient. Will transition her furosemide to p.o. at this time starting with tomorrow morning's dose. Appears to be nearing ability to be discharged. The no from her previous learning operations specialist as mentioned above shows that she has a nonischemic cardiomyopathy. Again patient does not recall having had a catheterization in the past Exam Const: General: comfortable and no acute distress Other: Pleasant obese lady no apparent distress of any kind this morning HENMT: Mouth: Yes moist mucous membranes Eyes: Sclera: sclerae normal Neck: Neck: supple and no JVD Other: No obvious JVD, difficult assessment given her body habitus Resp: Effort & Inspection: normal respiratory effort Auscultation: clear to auscultation bilaterally and diminished lung sounds (in bases ) bilateral Other: No pulmonary rales are audible Cardio: Rate: regular rate and tachycardic Rhythm: regular rhythm Other: normal S1, S2 GI: Auscultation: normal bowel sounds Skin: General skin exam: normal color Neuro: Speech: normal speech Other: Alert and oriented x3 Extrem: General: edema (+2-3 ) bilateral Other: Firm, brawny lower extremity edema. Reports that it is notably better compared to admission Psych: Mental Status: mental status grossly normal Objective Data Vital Signs Vital Signs: Vital Signs - 24 hr 10/25/24 11:39 10/25/24 12:00 10/25/24 14:00 Temperature 37.5 C Pulse Rate 88 94 84 Respiratory Rate 16 Blood Pressure 133/99 H Pulse Oximetry 99 Oxygen Delivery 10/25/24 16:00 10/25/24 16:00 10/25/24 18:00 Temperature 37.0 C Pulse Rate 81 84 86 Respiratory Rate 20 Blood Pressure 109/41 L Pulse Oximetry 99 Oxygen Delivery 10/25/24 20:00 10/25/24 20:00 10/25/24 20:05 Temperature 36.7 C Pulse Rate 84 85 Respiratory Rate 19 Blood Pressure 104/49 L Pulse Oximetry 100 99 Oxygen Delivery Autopap 10/25/24 20:54 10/25/24 22:00 10/25/24 23:14 Temperature Pulse Rate 84 85 84 Respiratory Rate 19 20 Blood Pressure Pulse Oximetry 100 98 Oxygen Delivery Room Air Room Air 10/25/24 23:19 10/26/24 00:00 10/26/24 02:00 Temperature 36.8 C Pulse Rate 84 90 84 Respiratory Rate 20 Blood Pressure 100/77 Pulse Oximetry 98 Oxygen Delivery 10/26/24 04:00 10/26/24 04:00 10/26/24 04:15 Temperature 37.0 C Pulse Rate 78 81 78 Respiratory Rate 17 17 Blood Pressure 102/66 Pulse Oximetry 99 99 Oxygen Delivery Room Air 10/26/24 06:00 10/26/24 08:00 10/26/24 08:05 Temperature 36.4 C Pulse Rate 78 105 H 91 Respiratory Rate 22 H 20 Blood Pressure 120/60 Pulse Oximetry 99 93 Oxygen Delivery Room Air 10/26/24 08:05 10/26/24 08:07 10/26/24 09:24 Temperature Pulse Rate 91 88 84 Respiratory Rate 20 20 Blood Pressure Pulse Oximetry Oxygen Delivery Intake/Output Intake/Output: Intake & Output 10/23/24 10/24/24 10/25/24 10/26/24 23:59 23:59 23:59 23:59 Intake Total 720 1251 360 Output Total 4600 2210 800 Balance -3880 -399 -440 Meds/Results Medications: Active Medications Generic Name Dose Route Start Last Admin Trade Name Freq PRN Reason Stop Dose Admin Albuterol 2 puff 10/24/24 05:35 10/26/24 08:04 Albuterol Sulfate (*Sp) Aerosol 1 Puff INHALATION 2 puff Q4H PRN Administration Shortness Of Breath Or Wheezing Aspirin 81 mg 10/24/24 09:00 10/26/24 09:24 Aspirin 81 Mg Enteric Tablet PO 81 mg QAM VY Administration Ergocalciferol 1,250 mcg 10/30/24 08:00 Ergocalciferol (Vitamin D2) 1,250 Mcg (50,000 Units) Capsule PO Th@0800 VY Loratadine 10 mg 10/24/24 09:00 10/26/24 09:24 Loratadine 10 Mg Tablet PO 10 mg QAM VY Administration Losartan Potassium 100 mg 10/24/24 09:00 10/26/24 09:24 Losartan Potassium 100 Mg Tablet PO 100 mg DAILY VY Administration Metoprolol Succinate 25 mg 10/24/24 09:00 10/26/24 09:24 Metoprolol Succinate Ext Rel 25 Mg Tabcr PO 25 mg QAM VY Administration Montelukast Sodium 10 mg 10/24/24 09:00 10/26/24 09:24 Montelukast Sodium 10 Mg Tablet PO 10 mg DAILY VY Administration Potassium Chloride 40 meq 10/25/24 17:00 10/26/24 09:24 Potassium Chloride 20 Meq Packet (For Liquid) PO 40 meq BID VY Administration Pravastatin Sodium 40 mg 10/24/24 09:00 10/26/24 09:24 Pravastatin Sodium 20 Mg Tablet PO 40 mg DAILY VY Administration Fluticasone/Salmeterol 2 puff 10/24/24 08:00 10/26/24 08:04 Fluticasone/Salmeterol 45-21 Mcg Inhaler 1 Puff INHALATION 2 puff Q12HRT VY Administration Radiology Results: ITS Impressions Chest X-Ray 10/23/24 17:25 IMPRESSION: 1. No acute cardiopulmonary disease. 2. Small nodular opacity projecting over the lateral left midlung zone which appears relatively dense for size which suggests either a bone island in the left fourth rib or scapula calcified nodule related to old granulomatous disease. Could consider follow-up low-dose noncontrast chest CT to exclude a noncalcified pulmonary nodule. Venous Doppler Study 10/24/24 06:05 IMPRESSION: 1. No fem-pop DVT either leg. 2. Calf veins poorly seen due to leg swelling. Chest CTA 10/24/24 07:01 IMPRESSION: 1. No PE. 2. Large right and small left pleural effusions, with pulmonary edema. 3. Gallbladder wall thickening; cholecystitis not excluded. Labs Labs: Laboratory Results - last 24 hr 10/26/24 08:59 WBC 6.8 RBC 3.57 L Hgb 9.7 L Hct 31.9 L MCV 89.4 MCH 27.2 MCHC 30.4 L RDW 16.9 H Plt Count 205 MPV 11.5 H Sodium 133 L Potassium 3.5 Chloride 99 Carbon Dioxide 25 Anion Gap 9 BUN 16 Creatinine 0.84 Estim Creat Clear Calc 67 Estimated GFR > 60 Glucose 161 H Calcium 8.4 Magnesium 2.1 Total Bilirubin 0.6 AST 36 ALT 27 Alkaline Phosphatase 90 Total Protein 6.7 Albumin 3.6
--- NOTE | 2024-10-26 12:00 | PM.IMPN ---
Progress Note: A&P Assessment and Plan (1) Congestive heart failure: Code(s): I50.9 - Heart failure, unspecified Status: Acute (2) Essential hypertension: Code(s): I10 - Essential (primary) hypertension Status: Acute (3) Mixed hyperlipidemia: Code(s): E78.2 - Mixed hyperlipidemia Status: Acute (4) Asthma: Qualifiers: Asthma severity: unspecified severity Asthma persistence: unspecified Asthma complication type: unspecified Qualified Code(s): J45.909 - Unspecified asthma, uncomplicated Code(s): J45.909 - Unspecified asthma, uncomplicated Status: Acute (5) Obesity: Qualifiers: Obesity type: due to excess calories Obesity classification: adult class 1 (BMI 30 - 34.9) Serious obesity comorbidity presence: without serious comorbidity Body mass index: BMI 33.0-33.9 Qualified Code(s): E66.09 - Other obesity due to excess calories; Z68.33 - Body mass index [BMI] 33.0-33.9, adult Code(s): E66.9 - Obesity, unspecified Status: Acute Plan This is a 64-year-old female patient who stated she has been short of breath and had increased edema to her lower extremities since the August 08. She stated that she does have a history of congestive heart failure that was diagnosed many years ago. She stated that she has not had any exacerbation for many years. The patient came to the emergency room from her primary care office today due to the increased swelling to her feet shortness of breath. The primary care provider noticed that her heart rate was irregular and then sent her to the emergency room for evaluation. Chest x-ray read was read as No acute cardiopulmonary disease. 2. Small nodular opacity projecting over the lateral left midlung zone which appears relatively dense for size which suggests either a bone island in the left fourth rib or scapula calcified nodule related to old granulomatous disease. Could consider follow-up low-dose noncontrast chest CT to exclude a noncalcified pulmonary nodule. CTA pulmonary was read as no pulmonary embolism. Venous Doppler was read as no evidence for deep vein thrombosis involving the bilateral extremity. The patient is extremely short of breath with any mild exertion and stated she has not been able to lay flat. She stated that she does have a history of asthma and uses her inhalers. She did not notice any fever chills or any wheezing. She does not wear oxygen at home. Her H&H is 9.8 and 31.8 with a previous normal a year ago. D-dimer is elevated at 0.84. Troponins were negative x2. Her BNP is 5790. Her urine is negative for UTI. The patient was given Lasix in the emergency room. The patient is being admitted to observation status on the date of service of 10/24/2024. Acute on chronic congestive heart failure diastolic received IV Lasix. Chest x-ray negative however has 2+ pitting edema echo ordered cardiology consultation troponin x2 negative. CTA showed large right and small left pleural effusion with pulmonary edema. Continue IV diuresis with 40 mg IV b.i.d. echo with moderate to severe mitral regurgitation moderate tricuspid regurgitation and EF of 30%. Elevated troponin 0.015-0.03 3-0.036 Anemia Hypertension Hyperlipidemia Asthma Obesity DVT prophylaxis Lovenox Code status full code Subjective Date/time seen: 10/26/24 12:00 Interval history: No overnight events. Feeling better. Leg swelling is improved. No chest pain. Review of Systems Review of Systems: All systems reviewed & are unremarkable except as noted in HPI and below Exam Narrative: GENERAL: Alert and oriented x3, in no respiratory distress HEAD: Normal with no signs of head trauma. EYES: EOMI, conjunctiva normal ENT: Hearing grossly intact LUNGS: Some rhonchi bilaterally lower lungs HEART: Regular rate and rhythm ABD: Soft, nontender to palpation EXT: Normal range of motion, bilateral lower extremity edema which is improving SKIN: No rashes or lesions. NEURO: Alert and oriented x 3. No gross focal sensory or strength deficits PSYCH: Normal affect Objective Data Vital Signs Vital Signs: Vital Signs - 24 hr 10/25/24 14:00 10/25/24 16:00 10/25/24 16:00 Temperature 98.6 F Pulse Rate 84 81 84 Respiratory Rate 20 Blood Pressure 109/41 L Pulse Oximetry 99 Oxygen Delivery 10/25/24 18:00 10/25/24 20:00 10/25/24 20:00 Temperature 98.1 F Pulse Rate 86 84 85 Respiratory Rate 19 Blood Pressure 104/49 L Pulse Oximetry 100 Oxygen Delivery 10/25/24 20:05 10/25/24 20:54 10/25/24 22:00 Temperature Pulse Rate 84 85 Respiratory Rate 19 Blood Pressure Pulse Oximetry 99 100 Oxygen Delivery [employer] Room Air 10/25/24 23:14 10/25/24 23:19 10/26/24 00:00 Temperature 98.2 F Pulse Rate 84 84 90 Respiratory Rate 20 20 Blood Pressure 100/77 Pulse Oximetry 98 98 Oxygen Delivery Room Air 10/26/24 02:00 10/26/24 04:00 10/26/24 04:00 Temperature 98.6 F Pulse Rate 84 78 81 Respiratory Rate 17 Blood Pressure 102/66 Pulse Oximetry 99 Oxygen Delivery 10/26/24 04:15 10/26/24 06:00 10/26/24 08:00 Temperature 97.6 F Pulse Rate 78 78 105 H Respiratory Rate 17 22 H Blood Pressure 120/60 Pulse Oximetry 99 99 Oxygen Delivery Room Air 10/26/24 08:05 10/26/24 08:05 10/26/24 08:07 Temperature Pulse Rate 91 91 88 Respiratory Rate 20 20 20 Blood Pressure Pulse Oximetry 93 Oxygen Delivery Room Air 10/26/24 09:24 10/26/24 11:58 Temperature 97.9 F Pulse Rate 84 87 Respiratory Rate 20 Blood Pressure 114/86 Pulse Oximetry 100 Oxygen Delivery Intake/Output Intake/Output: Intake & Output 10/23/24 10/24/24 10/25/24 10/26/24 23:59 23:59 23:59 23:59 Intake Total 720 1251 360 Output Total 4600 [address] [facility] -[phone] Meds/Results Medications: Active Medications Generic Name Dose Route Start Last Admin Trade Name Freq PRN Reason Stop Dose Admin Albuterol 2 puff 10/24/24 05:35 10/26/24 08:04 Albuterol Sulfate (*Sp) Aerosol 1 Puff INHALATION 2 puff Q4H PRN Administration Shortness Of Breath Or Wheezing Aspirin 81 mg 10/24/24 09:00 10/26/24 09:24 Aspirin 81 Mg Enteric Tablet PO 81 mg QAM VY Administration Ergocalciferol 1,250 mcg 10/30/24 08:00 Ergocalciferol (Vitamin D2) 1,250 Mcg (50,000 Units) Capsule PO Th@0800 VY Furosemide 40 mg 10/27/24 09:00 Furosemide 40 Mg Tablet PO DAILY VY Loratadine 10 mg 10/24/24 09:00 10/26/24 09:24 Loratadine 10 Mg Tablet PO 10 mg QAM VY Administration Losartan Potassium 100 mg 10/24/24 09:00 10/26/24 09:24 Losartan Potassium 100 Mg Tablet PO 100 mg DAILY VY Administration Metoprolol Succinate 25 mg 10/24/24 09:00 10/26/24 09:24 Metoprolol Succinate Ext Rel 25 Mg Tabcr PO 25 mg QAM VY Administration Montelukast Sodium 10 mg 10/24/24 09:00 10/26/24 09:24 Montelukast Sodium 10 Mg Tablet PO 10 mg DAILY VY Administration Potassium Chloride 40 meq 10/25/24 17:00 10/26/24 09:24 Potassium Chloride 20 Meq Packet (For Liquid) PO 40 meq BID VY Administration Pravastatin Sodium 40 mg 10/24/24 09:00 10/26/24 09:24 Pravastatin Sodium 20 Mg Tablet PO 40 mg DAILY VY Administration Fluticasone/Salmeterol 2 puff 10/24/24 08:00 10/26/24 08:04 Fluticasone/Salmeterol 45-21 Mcg Inhaler 1 Puff INHALATION 2 puff Q12HRT VY Administration Radiology Results: ITS Impressions Chest X-Ray 10/23/24 17:25 IMPRESSION: 1. No acute cardiopulmonary disease. 2. Small nodular opacity projecting over the lateral left midlung zone which appears relatively dense for size which suggests either a bone island in the left fourth rib or scapula calcified nodule related to old granulomatous disease. Could consider follow-up low-dose noncontrast chest CT to exclude a noncalcified pulmonary nodule. Venous Doppler Study 10/24/24 06:05 IMPRESSION: 1. No fem-pop DVT either leg. 2. Calf veins poorly seen due to leg swelling. Chest CTA 10/24/24 07:01 IMPRESSION: 1. No PE. 2. Large right and small left pleural effusions, with pulmonary edema. 3. Gallbladder wall thickening; cholecystitis not excluded. Labs Labs: Laboratory Results - last 24 hr 10/26/24 08:59 WBC 6.8 RBC 3.57 L Hgb 9.7 L Hct 31.9 L MCV 89.4 MCH 27.2 MCHC 30.4 L RDW 16.9 H Plt Count 205 MPV 11.5 H Sodium 133 L Potassium 3.5 Chloride 99 Carbon Dioxide 25 Anion Gap 9 BUN 16 Creatinine 0.84 Estim Creat Clear Calc 67 Estimated GFR > 60 Glucose 161 H Calcium 8.4 Magnesium 2.1 Total Bilirubin 0.6 AST 36 ALT 27 Alkaline Phosphatase 90 Total Protein 6.7 Albumin 3.6
--- NOTE | 2024-10-26 18:40 | PC.NURSE ---
pt transferred to room 240 from IMU via bed, oriented to new room and environment, reviewed plan of care and MD orders
--- NOTE | 2024-10-26 23:03 | PC.NURSE ---
RN call to pharmacy r/t 1700 dose of Potassium PO that was not administered prior to patient transfer to [address] [place] [address]. RN unable to pull med from [employer] r/t time of discovery that med was not given at 1700. RN called pharmacy to request medication and was advised to non-administer r/t risk of indigestion/acid reflux if administered prior to bed. Call to [place], Dr. Tierney to notify and request additional orders if needed.
[2024-10-27] VITALS (12 sets, daily range): BP systolic 93–115; BP diastolic 56–70; PULSE 66–92; RESP 18–20; TEMP 36.3–36.6; O2SAT 97–100
[2024-10-27 05:06] LABS: Hematocrit 31.6 % (37.0-47.0); Hemoglobin 9.5 g/dL (12.0-15.0); Immature Granulocyte Percent A 0.2 % (0-0.5); Lymphocytes Absolute Auto 1.53 K/mm3 (0.9-3.2); Mean Corpuscular HGB Conc 30.1 g/dl (32-36); Mean Corpuscular Hemoglobin 27.1 pg (26-34); Mean Corpuscular Volume 90.0 fl (80-100); Nucleated Red Blood Cells Absolute Auto 0.000 K/mm3 (0.0-0.012); Nucleated Red Blood Cells Perc 0.0 % (0.0-0.2); Platelet Count Result 188 k/mm3 (150-375); Red Blood Count 3.51 M/mm3 (4.2-5.4); White Blood Count 5.7 K/mm3 (4.5-10.0)
[2024-10-27 05:26] LABS: Alanine Aminotransferase 23 U/L (6-35); Albumin Level 3.5 g/dL (3.5-5.1); Alkaline Phosphatase 95 U/L (38-126); Anion Gap 7 mmol/L (4-12); Aspartate Amino Transferase 33 U/L (14-36); Bilirubin,Total 0.5 mg/dL (0.2-1.3); Blood Urea Nitrogen 15 mg/dL (7-17); Calcium 8.5 mg/dL (8.4-10.2); Carbon Dioxide 28 mmol/L (22-30); Chloride 100 mmol/L (98-107); Estimated CRCL calculation 64 ml/min; Estimated Glomerular Filt Rate > 60; Glucose 96 mg/dL (65-110); Magnesium 2.2 mg/dL (1.6-2.3); Potassium 3.6 mmol/L (3.4-5.0); Sodium 135 mmol/L (137-145); Total Protein 6.7 g/dL (6.3-8.2)
[2024-10-27] MEDS: FLUTICASONE/SALMETEROL 45-21 MCG INHALER 1 PUFF 2 PUFF INHALATION ×2 (08:00→19:55)
[2024-10-27] MEDS: ALBUTEROL SULFATE (*SP) AEROSOL 1 PUFF 2 PUFF INHALATION (08:01)
[2024-10-27] MEDS: POTASSIUM CHLORIDE 20 MEQ PACKET (FOR LIQUID) 40 MEQ PO ×2 (08:18→16:19)
[2024-10-27] MEDS: LOSARTAN POTASSIUM 100 MG TABLET PO (08:19)
[2024-10-27] MEDS: PRAVASTATIN SODIUM 20 MG TABLET 40 MG PO (08:19)
[2024-10-27] MEDS: METOPROLOL SUCCINATE EXT REL 25 MG TABCR PO (08:19)
[2024-10-27] MEDS: ASPIRIN 81 MG ENTERIC TABLET PO (08:19)
[2024-10-27] MEDS: FUROSEMIDE 40 MG TABLET PO (08:19)
[2024-10-27] MEDS: LORATADINE 10 MG TABLET PO (08:19)
[2024-10-27] MEDS: MONTELUKAST SODIUM 10 MG TABLET PO (08:19)
--- NOTE | 2024-10-27 11:25 | PM.IMPN ---
Progress Note: A&P Assessment and Plan (1) Congestive heart failure: Code(s): I50.9 - Heart failure, unspecified Status: Acute (2) Essential hypertension: Code(s): I10 - Essential (primary) hypertension Status: Acute (3) Mixed hyperlipidemia: Code(s): E78.2 - Mixed hyperlipidemia Status: Acute (4) Asthma: Qualifiers: Asthma severity: unspecified severity Asthma persistence: unspecified Asthma complication type: unspecified Qualified Code(s): J45.909 - Unspecified asthma, uncomplicated Code(s): J45.909 - Unspecified asthma, uncomplicated Status: Acute (5) Obesity: Qualifiers: Obesity type: due to excess calories Obesity classification: adult class 1 (BMI 30 - 34.9) Serious obesity comorbidity presence: without serious comorbidity Body mass index: BMI 33.0-33.9 Qualified Code(s): E66.09 - Other obesity due to excess calories; Z68.33 - Body mass index [BMI] 33.0-33.9, adult Code(s): E66.9 - Obesity, unspecified Status: Acute Plan This is a 64-year-old female patient who stated she has been short of breath and had increased edema to her lower extremities since the August 08. She stated that she does have a history of congestive heart failure that was diagnosed many years ago. She stated that she has not had any exacerbation for many years. The patient came to the emergency room from her primary care office today due to the increased swelling to her feet shortness of breath. The primary care provider noticed that her heart rate was irregular and then sent her to the emergency room for evaluation. Chest x-ray read was read as No acute cardiopulmonary disease. 2. Small nodular opacity projecting over the lateral left midlung zone which appears relatively dense for size which suggests either a bone island in the left fourth rib or scapula calcified nodule related to old granulomatous disease. Could consider follow-up low-dose noncontrast chest CT to exclude a noncalcified pulmonary nodule. CTA pulmonary was read as no pulmonary embolism. Venous Doppler was read as no evidence for deep vein thrombosis involving the bilateral extremity. The patient is extremely short of breath with any mild exertion and stated she has not been able to lay flat. She stated that she does have a history of asthma and uses her inhalers. She did not notice any fever chills or any wheezing. She does not wear oxygen at home. Her H&H is 9.8 and 31.8 with a previous normal a year ago. D-dimer is elevated at 0.84. Troponins were negative x2. Her BNP is 5790. Her urine is negative for UTI. The patient was given Lasix in the emergency room. The patient is being admitted to observation status on the date of service of 10/24/2024. Acute on chronic congestive heart failure diastolic received IV Lasix. Chest x-ray negative however has 2+ pitting edema echo ordered cardiology consultation troponin x2 negative. CTA showed large right and small left pleural effusion with pulmonary edema. Continue IV diuresis with 40 mg IV b.i.d. echo with moderate to severe mitral regurgitation moderate tricuspid regurgitation and EF of 30%. It was suspected with 1 of the reports in the chart that see has nonischemic cardiomyopathy and had a negative catheterization in 2019. This document that is in her chart is for wrong patient and hence cardiomyopathies had a new diagnosis for her. Will discuss with Cardiology in terms of ischemic workup with stress test while inpatient. Continue with losartan and metoprolol as ordered. Diuresis has been switched to oral Lasix. Blood pressure borderline and hence consider addition of spironolactone as an outpatient basis. Elevated troponin 0.015-0.03 3-0.036 Anemia Hypertension Hyperlipidemia Asthma Obesity DVT prophylaxis Lovenox Code status full code Subjective Date/time seen: 10/27/24 11:25 Interval history: No overnight events. Feels better. She reports she does not have any cardiac history and did not have any cardiac catheterization done. Review of Systems Review of Systems: All systems reviewed & are unremarkable except as noted in HPI and below Exam Narrative: GENERAL: Alert and oriented x3, in no respiratory distress HEAD: Normal with no signs of head trauma. EYES: EOMI, conjunctiva normal ENT: Hearing grossly intact LUNGS: Some rhonchi bilaterally lower lungs HEART: Regular rate and rhythm ABD: Soft, nontender to palpation EXT: Normal range of motion, bilateral lower extremity edema which is improving SKIN: No rashes or lesions. NEURO: Alert and oriented x 3. No gross focal sensory or strength deficits PSYCH: Normal affect Objective Data Vital Signs Vital Signs: Vital Signs - 24 hr 10/26/24 11:58 10/26/24 12:00 10/26/24 15:54 Temperature 97.9 F 98.3 F Pulse Rate 87 81 78 Respiratory Rate 20 16 Blood Pressure 114/86 107/54 L Pulse Oximetry 100 99 Oxygen Delivery 10/26/24 16:00 10/26/24 19:26 10/26/24 20:00 Temperature 97.5 F L Pulse Rate 89 79 Respiratory Rate 18 Blood Pressure 99/65 L Pulse Oximetry 100 Oxygen Delivery Room Air 10/26/24 20:05 10/27/24 00:00 10/27/24 00:00 Temperature 97.5 F L Pulse Rate 90 73 71 Respiratory Rate 20 18 Blood Pressure 93/56 L Pulse Oximetry 100 Oxygen Delivery 10/27/24 04:00 10/27/24 04:00 10/27/24 08:00 Temperature 97.6 F 97.4 F L Pulse Rate 66 84 92 Respiratory Rate 18 18 Blood Pressure 99/66 L 115/70 Pulse Oximetry 100 100 Oxygen Delivery 10/27/24 08:00 10/27/24 08:03 10/27/24 08:19 Temperature Pulse Rate 83 72 Respiratory Rate Blood Pressure Pulse Oximetry 97 Oxygen Delivery Room Air 10/27/24 08:20 Temperature Pulse Rate Respiratory Rate Blood Pressure Pulse Oximetry Oxygen Delivery Room Air Intake/Output Intake/Output: Intake & Output 10/24/24 10/25/24 10/26/24 10/27/24 23:59 23:59 23:59 23:59 Intake Total 720 1251 840 480 Output Total 4600 1650 2300 [facility] -[phone] 480 Meds/Results Medications: Active Medications Generic Name Dose Route Start Last Admin Trade Name Freq PRN Reason Stop Dose Admin Albuterol 2 puff 10/24/24 05:35 10/27/24 08:01 Albuterol Sulfate (*Sp) Aerosol 1 Puff INHALATION 2 puff Q4H PRN Administration Shortness Of Breath Or Wheezing Aspirin 81 mg 10/24/24 09:00 10/27/24 08:19 Aspirin 81 Mg Enteric Tablet PO 81 mg QAM VY Administration Ergocalciferol 1,250 mcg 10/30/24 08:00 Ergocalciferol (Vitamin D2) 1,250 Mcg (50,000 Units) Capsule PO Th@0800 VY Furosemide 40 mg 10/27/24 09:00 10/27/24 08:19 Furosemide 40 Mg Tablet PO 40 mg DAILY VY Administration Loratadine 10 mg 10/24/24 09:00 10/27/24 08:19 Loratadine 10 Mg Tablet PO 10 mg QAM VY Administration Losartan Potassium 100 mg 10/24/24 09:00 10/27/24 08:19 Losartan Potassium 100 Mg Tablet PO 100 mg DAILY VY Administration Metoprolol Succinate 25 mg 10/24/24 09:00 10/27/24 08:19 Metoprolol Succinate Ext Rel 25 Mg Tabcr PO 25 mg QAM VY Administration Montelukast Sodium 10 mg 10/24/24 09:00 10/27/24 08:19 Montelukast Sodium 10 Mg Tablet PO 10 mg DAILY VY Administration Potassium Chloride 40 meq 10/25/24 17:00 10/27/24 08:18 Potassium Chloride 20 Meq Packet (For Liquid) PO 40 meq BID VY Administration Pravastatin Sodium 40 mg 10/24/24 09:00 10/27/24 08:19 Pravastatin Sodium 20 Mg Tablet PO 40 mg DAILY VY Administration Fluticasone/Salmeterol 2 puff 10/24/24 08:00 10/27/24 08:00 Fluticasone/Salmeterol 45-21 Mcg Inhaler 1 Puff INHALATION 2 puff Q12HRT VY Administration Radiology Results: ITS Impressions Chest X-Ray 10/23/24 17:25 IMPRESSION: 1. No acute cardiopulmonary disease. 2. Small nodular opacity projecting over the lateral left midlung zone which appears relatively dense for size which suggests either a bone island in the left fourth rib or scapula calcified nodule related to old granulomatous disease. Could consider follow-up low-dose noncontrast chest CT to exclude a noncalcified pulmonary nodule. Venous Doppler Study 10/24/24 06:05 IMPRESSION: 1. No fem-pop DVT either leg. 2. Calf veins poorly seen due to leg swelling. Chest CTA 10/24/24 07:01 IMPRESSION: 1. No PE. 2. Large right and small left pleural effusions, with pulmonary edema. 3. Gallbladder wall thickening; cholecystitis not excluded. Labs Labs: Laboratory Results - last 24 hr 10/27/24 04:24 WBC 5.7 RBC 3.51 L Hgb 9.5 L Hct 31.6 L MCV 90.0 MCH 27.1 MCHC 30.1 L RDW 17.1 H Plt Count 188 MPV 11.3 H Immature Gran % (Auto) 0.2 Neut % (Auto) 58.2 Lymph % (Auto) 27.0 [place] % (Auto) 7.2 Eos % (Auto) 6.3 H Baso % (Auto) 1.1 Lymph # (Auto) 1.53 [place] # (Auto) 0.4 Eos # (Auto) 0.4 H Baso # (Auto) 0.1 Abs Immat Gran (auto) 0.01 Absolute Neuts (auto) 3.3 Absolute Nucleated RBC 0.000 Nucleated RBC % 0.0 Sodium 135 L Potassium 3.6 Chloride 100 Carbon Dioxide 28 Anion Gap 7 BUN 15 Creatinine 0.87 Estim Creat Clear Calc 64 Estimated GFR > 60 Glucose 96 Calcium 8.5 Magnesium 2.2 Total Bilirubin 0.5 AST 33 ALT 23 Alkaline Phosphatase 95 Total Protein 6.7 Albumin 3.5
--- NOTE | 2024-10-27 13:04 | PM.PNCARD ---
Progress Note: A&P Assessment and Plan (1) Acute systolic heart failure: Code(s): I50.21 - Acute systolic (congestive) heart failure Status: Acute (2) Essential hypertension: Code(s): I10 - Essential (primary) hypertension Status: Acute (3) Elevated troponin level: Code(s): R79.89 - Other specified abnormal findings of blood chemistry Status: Acute (4) New onset a-fib: Code(s): I48.91 - Unspecified atrial fibrillation Status: Acute (5) Mixed hyperlipidemia: Code(s): E78.2 - Mixed hyperlipidemia Status: Acute Plan Diagnosis: Acute systolic heart failure Elevated troponin without chest pain-most likely supply demand mismatch due to acute systolic heart failure Nonsustained VT Valvular heart disease-Moderate to severe MR; Moderate TR Severe pulmonary hypertension Hypertension-controlled Hyperlipidemia Elevated D-dimer- CTA chest negative for PE and venous doppler negative for DVT Plan: Continue Lasix 40 mg daily Check weights, ins and outs, renal function daily Check and replace electrolytes to keep potassium greater than 4 and magnesium greater than 2 In the setting of new drop in LVEF to 30%, mild troponin elevation, nonsustained VT, recommend cardiac catheterization to evaluate for ischemia. Alternatives, risks and benefits of procedure discussed with patient. She is willing to proceed. Keep NPO at midnight Guideline directed medical therapy for systolic heart failure. Continue metoprolol 25 mg daily, losartan 100 mg p.o. daily. Add empagliflozin 10 mg daily Continue aspirin, statin Subjective Date/time seen: 10/27/24 13:04 Interval history: Reason for encounter: Congestive heart failure Interval history: Patient reports decreased shortness of breath and leg swelling with diuresis. No chest pain. Telemetry shows sinus rhythm with controlled rates. Review of Systems Cardiovascular: Comments: As per HPI Respiratory: Comments: As per HPI Exam Narrative: General: Alert oriented x3, no acute distress Neck: Supple, no JVD Chest: Bilaterally clear to auscultation, no rales or rhonchi Cardiac: S1, S2 +, regular rate, regular rhythm, no murmurs or rubs Extremities: Bilateral lower extremity edema 1+, no skin rash Neurologic: Alert and oriented x3, no focal neurological deficits Objective Data Vital Signs Vital Signs: Vital Signs - 24 hr 10/26/24 15:54 10/26/24 16:00 10/26/24 19:26 Temperature 36.8 C Pulse Rate 78 89 Respiratory Rate 16 Blood Pressure 107/54 L Pulse Oximetry 99 Oxygen Delivery Room Air 10/26/24 20:00 10/26/24 20:05 10/27/24 00:00 Temperature 36.4 C L Pulse Rate 79 90 73 Respiratory Rate 18 20 Blood Pressure 99/65 L Pulse Oximetry 100 Oxygen Delivery 10/27/24 00:00 10/27/24 04:00 10/27/24 04:00 Temperature 36.4 C L 36.4 C Pulse Rate 71 66 84 Respiratory Rate 18 18 Blood Pressure 93/56 L 99/66 L Pulse Oximetry 100 100 Oxygen Delivery 10/27/24 08:00 10/27/24 08:00 10/27/24 08:03 Temperature 36.3 C L Pulse Rate 92 83 Respiratory Rate 18 Blood Pressure 115/70 Pulse Oximetry 100 97 Oxygen Delivery Room Air 10/27/24 08:19 10/27/24 08:20 Temperature Pulse Rate 72 Respiratory Rate Blood Pressure Pulse Oximetry Oxygen Delivery Room Air Intake/Output Intake/Output: Intake & Output 10/24/24 10/25/24 10/26/24 10/27/24 23:59 23:59 23:59 23:59 Intake Total 720 1251 840 720 Output Total 4608 9460 2300 [facility] -4022 -440 -5254 720 Meds/Results Medications: Active Medications Generic Name Dose Route Start Last Admin Trade Name Freq PRN Reason Stop Dose Admin Albuterol 2 puff 10/24/24 05:35 10/27/24 08:01 Albuterol Sulfate (*Sp) Aerosol 1 Puff INHALATION 2 puff Q4H PRN Administration Shortness Of Breath Or Wheezing Aspirin 81 mg 10/24/24 09:00 10/27/24 08:19 Aspirin 81 Mg Enteric Tablet PO 81 mg QAM VY Administration Ergocalciferol 1,250 mcg 10/30/24 08:00 Ergocalciferol (Vitamin D2) 1,250 Mcg (50,000 Units) Capsule PO Th@0800 VY Furosemide 40 mg 10/27/24 09:00 10/27/24 08:19 Furosemide 40 Mg Tablet PO 40 mg DAILY VY Administration Loratadine 10 mg 10/24/24 09:00 10/27/24 08:19 Loratadine 10 Mg Tablet PO 10 mg QAM VY Administration Losartan Potassium 100 mg 10/24/24 09:00 10/27/24 08:19 Losartan Potassium 100 Mg Tablet PO 100 mg DAILY VY Administration Metoprolol Succinate 25 mg 10/24/24 09:00 10/27/24 08:19 Metoprolol Succinate Ext Rel 25 Mg Tabcr PO 25 mg QAM VY Administration Montelukast Sodium 10 mg 10/24/24 09:00 10/27/24 08:19 Montelukast Sodium 10 Mg Tablet PO 10 mg DAILY VY Administration Potassium Chloride 40 meq 10/25/24 17:00 10/27/24 08:18 Potassium Chloride 20 Meq Packet (For Liquid) PO 40 meq BID VY Administration Pravastatin Sodium 40 mg 10/24/24 09:00 10/27/24 08:19 Pravastatin Sodium 20 Mg Tablet PO 40 mg DAILY VY Administration Fluticasone/Salmeterol 2 puff 10/24/24 08:00 10/27/24 08:00 Fluticasone/Salmeterol 45-21 Mcg Inhaler 1 Puff INHALATION 2 puff Q12HRT VY Administration Radiology Results: ITS Impressions Chest X-Ray 10/23/24 17:25 IMPRESSION: 1. No acute cardiopulmonary disease. 2. Small nodular opacity projecting over the lateral left midlung zone which appears relatively dense for size which suggests either a bone island in the left fourth rib or scapula calcified nodule related to old granulomatous disease. Could consider follow-up low-dose noncontrast chest CT to exclude a noncalcified pulmonary nodule. Venous Doppler Study 10/24/24 06:05 IMPRESSION: 1. No fem-pop DVT either leg. 2. Calf veins poorly seen due to leg swelling. Chest CTA 10/24/24 07:01 IMPRESSION: 1. No PE. 2. Large right and small left pleural effusions, with pulmonary edema. 3. Gallbladder wall thickening; cholecystitis not excluded. Labs Labs: Laboratory Results - last 24 hr 10/27/24 04:24 WBC 5.7 RBC 3.51 L Hgb 9.5 L Hct 31.6 L MCV 90.0 MCH 27.1 MCHC 30.1 L RDW 17.1 H Plt Count 188 MPV 11.3 H Immature Gran % (Auto) 0.2 Neut % (Auto) 58.2 Lymph % (Auto) 27.0 [place] % (Auto) 7.2 Eos % (Auto) 6.3 H Baso % (Auto) 1.1 Lymph # (Auto) 1.53 [place] # (Auto) 0.4 Eos # (Auto) 0.4 H Baso # (Auto) 0.1 Abs Immat Gran (auto) 0.01 Absolute Neuts (auto) 3.3 Absolute Nucleated RBC 0.000 Nucleated RBC % 0.0 Sodium 135 L Potassium 3.6 Chloride 100 Carbon Dioxide 28 Anion Gap 7 BUN 15 Creatinine 0.87 Estim Creat Clear Calc 64 Estimated GFR > 60 Glucose 96 Calcium 8.5 Magnesium 2.2 Total Bilirubin 0.5 AST 33 ALT 23 Alkaline Phosphatase 95 Total Protein 6.7 Albumin 3.5
[2024-10-28] VITALS (27 sets, daily range): BP systolic 98–132; BP diastolic 65–98; PULSE 62–89; RESP 13–20; TEMP 36.2–36.6; O2SAT 96–100
[2024-10-28] MEDS: ALBUTEROL SULFATE (*SP) AEROSOL 1 PUFF 2 PUFF INHALATION ×3 (03:49→20:01)
[2024-10-28 05:23] LABS: Hematocrit 32.0 % (37.0-47.0); Hemoglobin 9.7 g/dL (12.0-15.0); Immature Granulocyte Percent A 0.4 % (0-0.5); Lymphocytes Absolute Auto 1.53 K/mm3 (0.9-3.2); Mean Corpuscular HGB Conc 30.3 g/dl (32-36); Mean Corpuscular Hemoglobin 27.3 pg (26-34); Mean Corpuscular Volume 90.1 fl (80-100); Nucleated Red Blood Cells Absolute Auto 0.000 K/mm3 (0.0-0.012); Nucleated Red Blood Cells Perc 0.0 % (0.0-0.2); Platelet Count Result 216 k/mm3 (150-375); Red Blood Count 3.55 M/mm3 (4.2-5.4); White Blood Count 8.0 K/mm3 (4.5-10.0)
[2024-10-28 05:51] LABS: Alanine Aminotransferase 26 U/L (6-35); Albumin Level 3.6 g/dL (3.5-5.1); Alkaline Phosphatase 105 U/L (38-126); Anion Gap 9 mmol/L (4-12); Aspartate Amino Transferase 42 U/L (14-36); Bilirubin,Total 0.6 mg/dL (0.2-1.3); Blood Urea Nitrogen 18 mg/dL (7-17); Calcium 8.6 mg/dL (8.4-10.2); Carbon Dioxide 24 mmol/L (22-30); Chloride 100 mmol/L (98-107); Estimated CRCL calculation 67 ml/min; Estimated Glomerular Filt Rate > 60; Glucose 104 mg/dL (65-110); Magnesium 2.1 mg/dL (1.6-2.3); Potassium 4.4 mmol/L (3.4-5.0); Sodium 133 mmol/L (137-145); Total Protein 6.8 g/dL (6.3-8.2)
--- NOTE | 2024-10-28 08:08 | P.CDI_ITS ---
CDI Query Clarification Request Cardiology documented systolic CHF and new onset a-fib, while hospitalist documented diastolic 1)Please clarify type and acuity of heart failure if known. * Acute * Chronic * Acute on Chronic * Unknown * Systolic * Diastolic * Combined Systolic and Diastolic * Unknown 2)Please clarify if new onset a-fib was ruled in or ruled out Hospitalist documented: Assessment and Plan (1) Congestive heart failure: Code(s): I50.9 - Heart failure, unspecified Status: Acute (2) Essential hypertension: Code(s): I10 - Essential (primary) hypertension Status: Acute (3) Mixed hyperlipidemia: Code(s): E78.2 - Mixed hyperlipidemia Status: Acute (4) Asthma: Qualifiers: Asthma severity: unspecified severity Asthma persistence: unspecified Asthma complication type: unspecified Qualified Code(s): J45.909 - Unspecified asthma, uncomplicated Code(s): J45.909 - Unspecified asthma, uncomplicated Status: Acute (5) Obesity: Qualifiers: Obesity type: due to excess calories Obesity classification: adult class 1 (BMI 30 - 34.9) Serious obesity comorbidity presence: without serious comorbidity Body mass index: BMI 33.0-33.9 Qualified Code(s): E66.09 - Other obesity due to excess calories; Z68.33 - Body mass index [BMI] 33.0-33.9, adult Code(s): E66.9 - Obesity, unspecified Status: Acute Plan This is a 64-year-old female patient who stated she has been short of breath and had increased edema to her lower extremities since the August 08. She stated that she does have a history of congestive heart failure that was diagnosed many years ago. She stated that she has not had any exacerbation for many years. The patient came to the emergency room from her primary care office today due to the increased swelling to her feet shortness of breath. The primary care provider noticed that her heart rate was irregular and then sent her to the emergency room for evaluation. Chest x-ray read was read as No acute cardiopulmonary disease. 2. Small nodular opacity projecting over the lateral left midlung zone which appears relatively dense for size which suggests either a bone island in the left fourth rib or scapula calcified nodule related to old granulomatous disease. Could consider follow-up low-dose noncontrast chest CT to exclude a noncalcified pulmonary nodule. CTA pulmonary was read as no pulmonary embolism. Venous Doppler was read as no evidence for deep vein thrombosis involving the bilateral extremity. The patient is extremely short of breath with any mild exertion and stated she has not been able to lay flat. She stated that she does have a history of asthma and uses her inhalers. She did not notice any fever chills or any wheezing. She does not wear oxygen at home. Her H&H is 9.8 and 31.8 with a previous normal a year ago. D-dimer is elevated at 0.84. Troponins were negative x2. Her BNP is 5790. Her urine is negative for UTI. The patient was given Lasix in the emergency room. The patient is being admitted to observation status on the date of service of 10/24/2024. Acute on chronic congestive heart failure diastolic received IV Lasix. Cardiology documented: Assessment and Plan (1) Acute systolic heart failure: Code(s): I50.21 - Acute systolic (congestive) heart failure Status: Acute (2) Essential hypertension: Code(s): I10 - Essential (primary) hypertension Status: Acute (3) Elevated troponin level: Code(s): R79.89 - Other specified abnormal findings of blood chemistry Status: Acute (4) New onset a-fib: Code(s): I48.91 - Unspecified atrial fibrillation Status: Acute (5) Mixed hyperlipidemia: Code(s): E78.2 - Mixed hyperlipidemia Status: Acute Plan Diagnosis: Acute systolic heart failure Elevated troponin without chest pain-most likely supply demand mismatch due to acute systolic heart failure Nonsustained VT Valvular heart disease-Moderate to severe MR; Moderate TR Severe pulmonary hypertension Hypertension-controlled Hyperlipidemia Elevated D-dimer- CTA chest negative for PE and venous doppler negative for DVT ECHO: Summary 1. Left ventricular enlargement with global systolic dysfunction ejection fraction approximately 30%. 2. Moderate left atrial enlargement. 3. Moderate to severe mitral regurgitation. 4. Moderate tricuspid regurgitation velocity suggests RV systolic pressure of 77 mm Hg. 5. Atrial fibrillation. 6. Definity contrast utilized to improve exam quality. Electrocardiogram: interpretive Statements SINUS RHYTHM WITH OCCASIONAL VENTRICULAR PREMATURE COMPLEXES WITH OCCASIONAL SUPRAVENTRICULAR PREMATURE COMPLEXES LOW QRS VOLTAGE [QRS DEFLECTION < 0.5/1.0 mV IN LIMB/CHEST LEADS] POSSIBLE ANTERIOR MYOCARDIAL INFARCTION , PROBABLY OLD [30 ms Q WAVE IN V3/V4, OR R < 0.2 mV IN V4] ABNORMAL ECG Compared to ECG 10/23/2024 16:55:52 Sinus tachycardia no longer present T-wave abnormality no longer present Myocardial infarct finding still present <Mirna Avitia RN - Last Filed: 10/28/24 08:20> Provider Comments Acute systolic heart failure <Noel Farris MD - Last Filed: 10/28/24 14:45>
--- NOTE | 2024-10-28 08:28 | P.PNCA_ITS ---
Progress Note: A&P Assessment and Plan (1) Acute systolic heart failure: Code(s): I50.21 - Acute systolic (congestive) heart failure Status: Acute (2) Essential hypertension: Code(s): I10 - Essential (primary) hypertension Status: Acute (3) Elevated troponin level: Code(s): R79.89 - Other specified abnormal findings of blood chemistry Status: Acute (4) New onset a-fib: Code(s): I48.91 - Unspecified atrial fibrillation Status: Acute (5) Mixed hyperlipidemia: Code(s): E78.2 - Mixed hyperlipidemia Status: Acute Plan Diagnosis: Acute systolic heart failure Elevated troponin without chest pain-most likely supply demand mismatch due to acute systolic heart failure Nonsustained VT Valvular heart disease-Moderate to severe MR; Moderate TR Severe pulmonary hypertension Hypertension-controlled Hyperlipidemia Elevated D-dimer- CTA chest negative for PE and venous doppler negative for DVT Plan: Continue Lasix 40 mg daily Check weights, ins and outs, renal function daily Check and replace electrolytes to keep potassium greater than 4 and magnesium greater than 2 In the setting of new drop in LVEF to 30%, mild troponin elevation, nonsustained VT, recommend cardiac catheterization to evaluate for ischemia. Alternatives, risks and benefits of procedure discussed with patient. She is willing to proceed. Guideline directed medical therapy for systolic heart failure. Continue metoprolol 25 mg daily, losartan 100 mg p.o. daily and empagliflozin 10 mg da jovanny. BP too soft for addition of aldactone Continue aspirin, statin Further recommendations pending C Will need close OP cardiac follow up and sleep study Subjective Date/time seen: 10/28/24 08:28 Interval history: Reason for encounter: Congestive heart failure Interval history: Patient reports decreased shortness of breath and leg swelling with diuresis. No chest pain. Telemetry shows sinus rhythm with controlled rates. 10/28/24: Patient is sitting up in bed. She remains NPO for [facility] later today. No c/o chest pain. Still notes some shortness of breath with activity. Review of Systems Review of Systems: All systems reviewed & are unremarkable except as noted in HPI and below (in HPI ) Exam Narrative: General: Alert oriented x3, no acute distress Neck: Supple, no JVD Chest: Bilaterally clear to auscultation, no rales or rhonchi Cardiac: S1, S2 +, regular rate, regular rhythm, no murmurs or rubs Extremities: Bilateral lower extremity edema 1+, no skin rash Neurologic: Alert and oriented x3, no focal neurological deficits Objective Data Vital Signs Vital Signs: Vital Signs - 24 hr 10/27/24 12:00 10/27/24 15:10 10/27/24 16:00 Temperature 36.6 C Pulse Rate 77 79 78 Respiratory Rate 18 Blood Pressure 101/62 Pulse Oximetry 100 Oxygen Delivery Fraction of Inspired Oxygen 10/27/24 19:20 10/27/24 19:55 10/27/24 19:56 Temperature 36.5 C Pulse Rate 82 78 Respiratory Rate 20 18 Blood Pressure 104/56 L Pulse Oximetry 100 98 Oxygen Delivery Room Air Fraction of Inspired Oxygen 21 10/27/24 20:00 10/27/24 20:00 10/28/24 00:00 Temperature 36.2 C L Pulse Rate 81 78 Respiratory Rate 20 Blood Pressure 100/65 Pulse Oximetry 100 Oxygen Delivery Room Air Fraction of Inspired Oxygen 10/28/24 00:00 10/28/24 03:49 10/28/24 04:00 Temperature 36.6 C Pulse Rate 78 80 80 Respiratory Rate 18 20 Blood Pressure 98/65 L Pulse Oximetry 100 Oxygen Delivery Fraction of Inspired Oxygen 10/28/24 04:00 10/28/24 08:00 Temperature 36.4 C Pulse Rate 77 62 Respiratory Rate 18 Blood Pressure 108/70 Pulse Oximetry 96 Oxygen Delivery Fraction of Inspired Oxygen Intake/Output Intake/Output: Intake & Output 10/25/24 10/26/24 10/27/24 10/28/24 23:59 23:59 23:59 23:59 Intake Total 2267 045 0200 Output Total 1650 2300 Balance -399 -1460 1510 Meds/Results Medications: Active Medications Generic Name Dose Route Start Last Admin Trade Name Freq PRN Reason Stop Dose Admin Albuterol 2 puff 10/24/24 05:35 10/28/24 03:49 Albuterol Sulfate (*Sp) Aerosol 1 Puff INHALATION 2 puff Q4H PRN Administration Shortness Of Breath Or Wheezing Aspirin 81 mg 10/24/24 09:00 10/27/24 08:19 Aspirin 81 Mg Enteric Tablet PO 81 mg QAM VY Administration Empagliflozin 10 mg 10/28/24 09:00 Empagliflozin 10 Mg Tablet PO DAILY VY Ergocalciferol 1,250 mcg 10/30/24 08:00 Ergocalciferol (Vitamin D2) 1,250 Mcg (50,000 Units) Capsule PO Th@0800 VY Furosemide 40 mg 10/27/24 09:00 10/27/24 08:19 Furosemide 40 Mg Tablet PO 40 mg DAILY VY Administration Loratadine 10 mg 10/24/24 09:00 10/27/24 08:19 Loratadine 10 Mg Tablet PO 10 mg QAM VY Administration Losartan Potassium 100 mg 10/24/24 09:00 10/27/24 08:19 Losartan Potassium 100 Mg Tablet PO 100 mg DAILY VY Administration Metoprolol Succinate 25 mg 10/24/24 09:00 10/27/24 08:19 Metoprolol Succinate Ext Rel 25 Mg Tabcr PO 25 mg QAM VY Administration Montelukast Sodium 10 mg 10/24/24 09:00 10/27/24 08:19 Montelukast Sodium 10 Mg Tablet PO 10 mg DAILY VY Administration Potassium Chloride 40 meq 10/25/24 17:00 10/27/24 16:19 Potassium Chloride 20 Meq Packet (For Liquid) PO 40 meq BID VY Administration Pravastatin Sodium 40 mg 10/24/24 09:00 10/27/24 08:19 Pravastatin Sodium 20 Mg Tablet PO 40 mg DAILY VY Administration Fluticasone/Salmeterol 2 puff 10/24/24 08:00 10/27/24 19:55 Fluticasone/Salmeterol 45-21 Mcg Inhaler 1 Puff INHALATION 2 puff Q12HRT VY Administration Radiology Results: ITS Impressions Chest X-Ray 10/23/24 17:25 IMPRESSION: 1. No acute cardiopulmonary disease. 2. Small nodular opacity projecting over the lateral left midlung zone which appears relatively dense for size which suggests either a bone island in the left fourth rib or scapula calcified nodule related to old granulomatous disease. Could consider follow-up low-dose noncontrast chest CT to exclude a noncalcified pulmonary nodule. Venous Doppler Study 10/24/24 06:05 IMPRESSION: 1. No fem-pop DVT either leg. 2. Calf veins poorly seen due to leg swelling. Chest CTA 10/24/24 07:01 IMPRESSION: 1. No PE. 2. Large right and small left pleural effusions, with pulmonary edema. 3. Gallbladder wall thickening; cholecystitis not excluded. Labs Labs: Laboratory Results - last 24 hr 10/28/24 04:17 WBC 8.0 RBC 3.55 L Hgb 9.7 L Hct 32.0 L MCV 90.1 MCH 27.3 MCHC 30.3 L RDW 17.1 H Plt Count 216 MPV 11.8 H Immature Gran % (Auto) 0.4 Neut % (Auto) 67.7 Lymph % (Auto) 19.1 [place] % (Auto) 8.1 Eos % (Auto) 3.8 Baso % (Auto) 0.9 Lymph # (Auto) 1.53 [place] # (Auto) 0.7 H Eos # (Auto) 0.3 Baso # (Auto) 0.1 Abs Immat Gran (auto) 0.03 Absolute Neuts (auto) 5.4 Absolute Nucleated RBC 0.000 Nucleated RBC % 0.0 Sodium 133 L Potassium 4.4 Chloride 100 Carbon Dioxide 24 Anion Gap 9 BUN 18 H Creatinine 0.84 Estim Creat Clear Calc 67 Estimated GFR > 60 Glucose 104 Calcium 8.6 Magnesium 2.1 Total Bilirubin 0.6 AST 42 H ALT 26 Alkaline Phosphatase 105 Total Protein 6.8 Albumin 3.6
[2024-10-28] MEDS: ASPIRIN 81 MG ENTERIC TABLET PO (08:30)
[2024-10-28] MEDS: EMPAGLIFLOZIN 10 MG TABLET PO (08:30)
[2024-10-28] MEDS: LOSARTAN POTASSIUM 100 MG TABLET PO (08:30)
[2024-10-28] MEDS: PRAVASTATIN SODIUM 20 MG TABLET 40 MG PO (08:31)
[2024-10-28] MEDS: MONTELUKAST SODIUM 10 MG TABLET PO (08:31)
[2024-10-28] MEDS: METOPROLOL SUCCINATE EXT REL 25 MG TABCR PO (08:31)
[2024-10-28] MEDS: LORATADINE 10 MG TABLET PO (08:32)
[2024-10-28] MEDS: FLUTICASONE/SALMETEROL 45-21 MCG INHALER 1 PUFF 2 PUFF INHALATION ×2 (08:35→19:58)
--- NOTE | 2024-10-28 10:59 | P.SEDATION_ITS ---
Moderate Sedation Note-Pt Data Patient Data Allergies Allergy/AdvReac Type Severity Reaction Status Date / Time Penicillins Allergy Unknown Asthmatic Verified 10/23/24 15:30 response Home Medications ?Medication ?Instructions ?Recorded ?Confirmed ?Type fexofenadine 180 mg tablet 180 mg PO DAILY 12/15/19 History (Chelsy Allergy) cholecalciferol (vitamin D3) 1,250 1,250 mcg PO WEEKLY #8 tabs 07/16/23 10/24/24 Rx mcg (50,000 unit) tablet pravastatin 40 mg tablet 40 mg PO DAILY #90 tabs 03/0810/24/24 Rx albuterol sulfate 90 mcg/actuation See Rx Instructions .Route 07/11/24 10/24/24 Rx aerosol inhaler .COMPLEX #8.5 grams montelukast 10 mg tablet 10 mg PO DAILY #90 tabs 09/0510/24/24 Rx losartan 100 mg tablet 100 mg PO DAILY #90 tabs 10/24/24 Rx Symbicort 80 mcg-4.5 mcg/actuation 2 puff inhalation B ID #10.2 grams 09/29/24 10/24/24 Rx HFA aerosol inhaler (budesonide-formoterol) Current Medications: Active Medications Albuterol (Albuterol Sulfate (*Sp) Aerosol 1 Puff) 2 puff INHALATION Q4H PRN PRN Reason: Shortness Of Breath Or Wheezing Last Admin: 10/28/24 08:36 Dose: 2 puff Aspirin (Aspirin 81 Mg Enteric Tablet) 81 mg PO QAM COUNT INCLUDES THE [facility] Last Admin: 10/28/24 08:30 Dose: 81 mg Empagliflozin (Empagliflozin 10 Mg Tablet) 10 mg PO DAILY COUNT INCLUDES THE [facility] Last Admin: 10/28/24 08:30 Dose: 10 mg Ergocalciferol (Ergocalciferol (Vitamin D2) 1,250 Mcg (50,000 Units) Capsule) 1,250 mcg PO Th@0800 COUNT INCLUDES THE [facility] Furosemide (Furosemide 40 Mg Tablet) 40 mg PO DAILY COUNT INCLUDES THE [facility] Last Admin: 10/28/24 08:32 Dose: Not Given Loratadine (Loratadine 10 Mg Tablet) 10 mg PO QAM COUNT INCLUDES THE [facility] Last Admin: 10/28/24 08:32 Dose: 10 mg Losartan Potassium (Losartan Potassium 100 Mg Tablet) 100 mg PO DAILY COUNT INCLUDES THE [facility] Last Admin: 10/28/24 08:30 Dose: 100 mg Metoprolol Succinate (Metoprolol Succinate Ext Rel 25 Mg Tabcr) 25 mg PO QAM COUNT INCLUDES THE [facility] Last Admin: 10/28/24 08:31 Dose: 25 mg Montelukast Sodium (Montelukast Sodium 10 Mg Tablet) 10 mg PO DAILY COUNT INCLUDES THE [facility] Last Admin: 10/28/24 08:31 Dose: 10 mg Potassium Chloride (Potassium Chloride 20 Meq Packet (For Liquid)) 40 meq PO BID COUNT INCLUDES THE [facility] Last Admin: 10/28/24 08:32 Dose: Not Given Pravastatin Sodium (Pravastatin Sodium 20 Mg Tablet) 40 mg PO DAILY COUNT INCLUDES THE [facility] Last Admin: 10/28/24 08:31 Dose: 40 mg Fluticasone/Salmeterol (Fluticasone/Salmeterol 45-21 Mcg Inhaler 1 Puff) 2 puff INHALATION Q12HRT COUNT INCLUDES THE [facility] Last Admin: 10/28/24 08:35 Dose: 2 puff Sedation/Anesthesia: No previous sedation/anesthesia problems (including family history). [facility] Past Medical History Medical History Congestive heart failure Obesity Breast mass, right Elevated blood sugar level Essential hypertension Mixed hyperlipidemia Postmenopausal Vitamin D deficiency Surgical History Surgical History No significant past surgical history Family History Family History Father , 10/01/2019 Diabetes mellitus Family history of type 2 diabetes mellitus A-fib Mother , 2019 Diabetes mellitus Family history of type 2 diabetes mellitus A-fib Congestive heart failure Social History Social History (Updated 10/24/24 @ 04:39 by Jeny Erwin APRN) Social History: Caffeine-tea. The patient lives with her life long partner margarita Redman. She has no children. 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 She denies any alcohol or tobacco use. Code status full code Smoking status: Never smoker Second hand tobacco smoke exposure: No Alcohol intake: never Substance use: never Substance use type: does not use Lack of Transportation: No Lack of Food: Never True Current Housing: I Have Housing Concerned About Future Housing: No Difficulty Paying Gas/Electric Bills: No Difficulty Paying for Meds: No Currently Unemployed: No Education: High School Diploma/GED Difficulty w/ Childcare or Family Care: No Spiritual care concerns: No Mod Sed Physical Exam Physical Exam Pre Procedural Exam: Normal: Lungs, Heart Rate and Heart Rhythm Hours since solid foods: 12 Hours since liquid intake: 12 Mallampati Classification: class III Internal Medicine - PN: Obj Da Vital Signs Vital Signs: Vital Signs - 24 hr 10/27/24 12:00 10/27/24 15:10 10/27/24 16:00 Temperature 36.6 C Pulse Rate 77 79 78 Respiratory Rate 18 Blood Pressure 101/62 Pulse Oximetry 100 Oxygen Delivery Fraction of Inspired Oxygen 10/27/24 19:20 10/27/24 19:55 10/27/24 19:56 Temperature 36.5 C Pulse Rate 82 78 Respiratory Rate 20 18 Blood Pressure 104/56 L Pulse Oximetry 100 98 Oxygen Delivery Room Air Fraction of Inspired Oxygen 21 10/27/24 20:00 10/27/24 20:00 10/28/24 00:00 Temperature 36.2 C L Pulse Rate 81 78 Respiratory Rate 20 Blood Pressure 100/65 Pulse Oximetry 100 Oxygen Delivery Room Air Fraction of Inspired Oxygen 10/28/24 00:00 10/28/24 03:49 10/28/24 04:00 Temperature 36.6 C Pulse Rate 78 80 80 Respiratory Rate 18 20 Blood Pressure 98/65 L Pulse Oximetry 100 Oxygen Delivery Fraction of Inspired Oxygen 10/28/24 04:00 10/28/24 08:00 10/28/24 08:00 Temperature 36.4 C Pulse Rate 77 62 Respiratory Rate 18 Blood Pressure 108/70 Pulse Oximetry 96 Oxygen Delivery Room Air Fraction of Inspired Oxygen 10/28/24 08:00 10/28/24 08:30 10/28/24 08:31 Temperature Pulse Rate 86 82 Respiratory Rate Blood Pressure 112/74 Pulse Oximetry 82 L Oxygen Delivery Fraction of Inspired Oxygen 10/28/24 08:37 10/28/24 10:11 Temperature Pulse Rate 76 Respiratory Rate 16 Blood Pressure Pulse Oximetry Oxygen Delivery Room Air Fraction of Inspired Oxygen Intake/Output Intake/Output: Intake & Output 10/25/24 10/26/24 10/27/24 10/28/24 23:59 23:59 23:59 23:59 Intake Total 9571 801 7783 Output Total 1650 2300 Balance -399 -1460 1510 Meds/Results Medications: Active Medications Generic Name Dose Route Start Last Admin Trade Name Freq PRN Reason Stop Dose Admin Albuterol 2 puff 10/24/24 05:35 10/28/24 08:36 Albuterol Sulfate (*Sp) Aerosol 1 Puff INHALATION 2 puff Q4H PRN Administration Shortness Of Breath Or Wheezing Aspirin 81 mg 10/24/24 09:00 10/28/24 08:30 Aspirin 81 Mg Enteric Tablet PO 81 mg QAM VY Administration Empagliflozin 10 mg 10/28/24 09:00 10/28/24 08:30 Empagliflozin 10 Mg Tablet PO 10 mg DAILY VY Administration Ergocalciferol 1,250 mcg 10/30/24 08:00 Ergocalciferol (Vitamin D2) 1,250 Mcg (50,000 Units) Capsule PO Th@0800 VY Furosemide 40 mg 10/27/24 09:00 10/28/24 08:32 Furosemide 40 Mg Tablet PO Not Given DAILY VY Loratadine 10 mg 10/24/24 09:00 10/28/24 08:32 Loratadine 10 Mg Tablet PO 10 mg QAM COUNT INCLUDES THE [facility] Administration Losartan Potassium 100 mg 10/24/24 09:00 10/28/24 08:30 Losartan Potassium 100 Mg Tablet PO 100 mg DAILY VY Administration Metoprolol Succinate 25 mg 10/24/24 09:00 10/28/24 08:31 Metoprolol Succinate Ext Rel 25 Mg Tabcr PO 25 mg QAM VY Administration Montelukast Sodium 10 mg 10/24/24 09:00 10/28/24 08:31 Montelukast Sodium 10 Mg Tablet PO 10 mg DAILY COUNT INCLUDES THE [facility] Administration Potassium Chloride 40 meq 10/25/24 17:00 10/28/24 08:32 Potassium Chloride 20 Meq Packet (For Liquid) PO Not Given BID COUNT INCLUDES THE [facility] Pravastatin Sodium 40 mg 10/24/24 09:00 10/28/24 08:31 Pravastatin Sodium 20 Mg Tablet PO 40 mg DAILY VY Administration Fluticasone/Salmeterol 2 puff 10/24/24 08:00 10/28/24 08:35 Fluticasone/Salmeterol 45-21 Mcg Inhaler 1 Puff INHALATION 2 puff Q12HRT VY Administration Radiology Results: ITS Impressions Chest X-Ray 10/23/24 17:25 IMPRESSION: 1. No acute cardiopulmonary disease. 2. Small nodular opacity projecting over the lateral left midlung zone which appears relatively dense for size which suggests either a bone island in the left fourth rib or scapula calcified nodule related to old granulomatous disease. Could consider follow-up low-dose noncontrast chest CT to exclude a noncalcified pulmonary nodule. Venous Doppler Study 10/24/24 06:05 IMPRESSION: 1. No fem-pop DVT either leg. 2. Calf veins poorly seen due to leg swelling. Chest CTA 10/24/24 07:01 IMPRESSION: 1. No PE. 2. Large right and small left pleural effusions, with pulmonary edema. 3. Gallbladder wall thickening; cholecystitis not excluded. Labs 10/28/24 04:17 10/28/24 04:17 Labs: Laboratory Results - last 24 hr 10/28/24 04:17 WBC 8.0 RBC 3.55 L Hgb 9.7 L Hct 32.0 L MCV 90.1 MCH 27.3 MCHC 30.3 L RDW 17.1 H Plt Count 216 MPV 11.8 H Immature Gran % (Auto) 0.4 Neut % (Auto) 67.7 Lymph % (Auto) 19.1 [place] % (Auto) 8.1 Eos % (Auto) 3.8 Baso % (Auto) 0.9 Lymph # (Auto) 1.53 [place] # (Auto) 0.7 H Eos # (Auto) 0.3 Baso # (Auto) 0.1 Abs Immat Gran (auto) 0.03 Absolute Neuts (auto) 5.4 Absolute Nucleated RBC 0.000 Nucleated RBC % 0.0 Sodium 133 L Potassium 4.4 Chloride 100 Carbon Dioxide 24 Anion Gap 9 BUN 18 H Creatinine 0.84 Estim Creat Clear Calc 67 Estimated GFR > 60 Glucose 104 Calcium 8.6 Magnesium 2.1 Total Bilirubin 0.6 AST 42 H ALT 26 Alkaline Phosphatase 105 Total Protein 6.8 Albumin 3.6 ASA Classification/Sedation ASA Classification/Sedation ASA Class: III Emergent: No Risks: Risks, benefits and alternatives explained and patient/family accepted plan for sedation. Patient re-evaluated immediately prior to sedation.
--- NOTE | 2024-10-28 11:00 | P.HPUP_ITS ---
History and Physical Update Update Date/Time: 10/28/24 11:00 History and Physical has been reviewed, including an updated exam of the patient. There are changes in the patient's condition -she she received IV diuresis which has now been switched to p.o. diuresis. She is euvolemic by stephie m. Risks, benefits, and alternatives have been discussed and questions answered. Patient agrees to proceed with procedure.
--- NOTE | 2024-10-28 11:22 | P.PNCA_ITS ---
Subjective Date/time seen: 10/28/24 11:22 Objective Data Vital Signs Vital Signs: Vital Signs - 24 hr 10/27/24 12:00 10/27/24 15:10 10/27/24 16:00 Temperature 36.6 C Pulse Rate 77 79 78 Respiratory Rate 18 Blood Pressure 101/62 Pulse Oximetry 100 Oxygen Delivery Fraction of Inspired Oxygen 10/27/24 19:20 10/27/24 19:55 10/27/24 19:56 Temperature 36.5 C Pulse Rate 82 78 Respiratory Rate 20 18 Blood Pressure 104/56 L Pulse Oximetry 100 98 Oxygen Delivery Room Air Fraction of Inspired Oxygen 21 10/27/24 20:00 10/27/24 20:00 10/28/24 00:00 Temperature 36.2 C L Pulse Rate 81 78 Respiratory Rate 20 Blood Pressure 100/65 Pulse Oximetry 100 Oxygen Delivery Room Air Fraction of Inspired Oxygen 10/28/24 00:00 10/28/24 03:49 10/28/24 04:00 Temperature 36.6 C Pulse Rate 78 80 80 Respiratory Rate 18 20 Blood Pressure 98/65 L Pulse Oximetry 100 Oxygen Delivery Fraction of Inspired Oxygen 10/28/24 04:00 10/28/24 08:00 10/28/24 08:00 Temperature 36.4 C Pulse Rate 77 62 Respiratory Rate 18 Blood Pressure 108/70 Pulse Oximetry 96 Oxygen Delivery Room Air Fraction of Inspired Oxygen 10/28/24 08:00 10/28/24 08:30 10/28/24 08:31 Temperature Pulse Rate 86 82 82 Respiratory Rate 20 Blood Pressure 112/74 Pulse Oximetry Oxygen Delivery Fraction of Inspired Oxygen 10/28/24 08:37 10/28/24 10:11 Temperature Pulse Rate 76 Respiratory Rate 16 Blood Pressure Pulse Oximetry Oxygen Delivery Room Air Fraction of Inspired Oxygen Intake/Output Intake/Output: Intake & Output 10/25/24 10/26/24 10/27/24 10/28/24 23:59 23:59 23:59 23:59 Intake Total 1843 641 5459 Output Total 1650 2300 Balance -399 -1460 1510 Meds/Results Medications: Active Medications Generic Name Dose Route Start Last Admin Trade Name Freq PRN Reason Stop Dose Admin Albuterol 2 puff 10/24/24 05:35 10/28/24 08:36 Albuterol Sulfate (*Sp) Aerosol 1 Puff INHALATION 2 puff Q4H PRN Administration Shortness Of Breath Or Wheezing Aspirin 81 mg 10/24/24 09:00 10/28/24 08:30 Aspirin 81 Mg Enteric Tablet PO 81 mg QAM VY Administration Empagliflozin 10 mg 10/28/24 09:00 10/28/24 08:30 Empagliflozin 10 Mg Tablet PO 10 mg DAILY VY Administration Ergocalciferol 1,250 mcg 10/30/24 08:00 Ergocalciferol (Vitamin D2) 1,250 Mcg (50,000 Units) Capsule PO Th@0800 VY Furosemide 40 mg 10/27/24 09:00 10/28/24 08:32 Furosemide 40 Mg Tablet PO Not Given DAILY VY Loratadine 10 mg 10/24/24 09:00 10/28/24 08:32 Loratadine 10 Mg Tablet PO 10 mg QAM [facility] Administration Losartan Potassium 100 mg 10/24/24 09:00 10/28/24 08:30 Losartan Potassium 100 Mg Tablet PO 100 mg DAILY VY Administration Metoprolol Succinate 25 mg 10/24/24 09:00 10/28/24 08:31 Metoprolol Succinate Ext Rel 25 Mg Tabcr PO 25 mg QAM [facility] Administration Montelukast Sodium 10 mg 10/24/24 09:00 10/28/24 08:31 Montelukast Sodium 10 Mg Tablet PO 10 mg DAILY [facility] Administration Potassium Chloride 40 meq 10/25/24 17:00 10/28/24 08:32 Potassium Chloride 20 Meq Packet (For Liquid) PO Not Given BID [facility] Pravastatin Sodium 40 mg 10/24/24 09:00 10/28/24 08:31 Pravastatin Sodium 20 Mg Tablet PO 40 mg DAILY VY Administration Fluticasone/Salmeterol 2 puff 10/24/24 08:00 10/28/24 08:35 Fluticasone/Salmeterol 45-21 Mcg Inhaler 1 Puff INHALATION 2 puff Q12HRT VY Administration Radiology Results: ITS Impressions Chest X-Ray 10/23/24 17:25 IMPRESSION: 1. No acute cardiopulmonary disease. 2. Small nodular opacity projecting over the lateral left midlung zone which appears relatively dense for size which suggests either a bone island in the left fourth rib or scapula calcified nodule related to old granulomatous disease. Could consider follow-up low-dose noncontrast chest CT to exclude a noncalcified pulmonary nodule. Venous Doppler Study 10/24/24 06:05 IMPRESSION: 1. No fem-pop DVT either leg. 2. Calf veins poorly seen due to leg swelling. Chest CTA 10/24/24 07:01 IMPRESSION: 1. No PE. 2. Large right and small left pleural effusions, with pulmonary edema. 3. Gallbladder wall thickening; cholecystitis not excluded. Labs Labs: Laboratory Results - last 24 hr 10/28/24 04:17 WBC 8.0 RBC 3.55 L Hgb 9.7 L Hct 32.0 L MCV 90.1 MCH 27.3 MCHC 30.3 L RDW 17.1 H Plt Count 216 MPV 11.8 H Immature Gran % (Auto) 0.4 Neut % (Auto) 67.7 Lymph % (Auto) 19.1 Wise % (Auto) 8.1 Eos % (Auto) 3.8 Baso % (Auto) 0.9 Lymph # (Auto) 1.53 Wise # (Auto) 0.7 H Eos # (Auto) 0.3 Baso # (Auto) 0.1 Abs Immat Gran (auto) 0.03 Absolute Neuts (auto) 5.4 Absolute Nucleated RBC 0.000 Nucleated RBC % 0.0 Sodium 133 L Potassium 4.4 Chloride 100 Carbon Dioxide 24 Anion Gap 9 BUN 18 H Creatinine 0.84 Estim Creat Clear Calc 67 Estimated GFR > 60 Glucose 104 Calcium 8.6 Magnesium 2.1 Total Bilirubin 0.6 AST 42 H ALT 26 Alkaline Phosphatase 105 Total Protein 6.8 Albumin 3.6
--- NOTE | 2024-10-28 11:47 | PM.IMPN ---
Progress Note: A&P Assessment and Plan (1) Congestive heart failure: Code(s): I50.9 - Heart failure, unspecified Status: Acute (2) Essential hypertension: Code(s): I10 - Essential (primary) hypertension Status: Acute (3) Mixed hyperlipidemia: Code(s): E78.2 - Mixed hyperlipidemia Status: Acute (4) Asthma: Qualifiers: Asthma severity: unspecified severity Asthma persistence: unspecified Asthma complication type: unspecified Qualified Code(s): J45.909 - Unspecified asthma, uncomplicated Code(s): J45.909 - Unspecified asthma, uncomplicated Status: Acute (5) Obesity: Qualifiers: Obesity type: due to excess calories Obesity classification: adult class 1 (BMI 30 - 34.9) Serious obesity comorbidity presence: without serious comorbidity Body mass index: BMI 33.0-33.9 Qualified Code(s): E66.09 - Other obesity due to excess calories; Z68.33 - Body mass index [BMI] 33.0-33.9, adult Code(s): E66.9 - Obesity, unspecified Status: Acute Plan This is a 64-year-old female patient who stated she has been short of breath and had increased edema to her lower extremities since the August 08. She stated that she does have a history of congestive heart failure that was diagnosed many years ago. She stated that she has not had any exacerbation for many years. The patient came to the emergency room from her primary care office today due to the increased swelling to her feet shortness of breath. The primary care provider noticed that her heart rate was irregular and then sent her to the emergency room for evaluation. Chest x-ray read was read as No acute cardiopulmonary disease. 2. Small nodular opacity projecting over the lateral left midlung zone which appears relatively dense for size which suggests either a bone island in the left fourth rib or scapula calcified nodule related to old granulomatous disease. Could consider follow-up low-dose noncontrast chest CT to exclude a noncalcified pulmonary nodule. CTA pulmonary was read as no pulmonary embolism. Venous Doppler was read as no evidence for deep vein thrombosis involving the bilateral extremity. The patient is extremely short of breath with any mild exertion and stated she has not been able to lay flat. She stated that she does have a history of asthma and uses her inhalers. She did not notice any fever chills or any wheezing. She does not wear oxygen at home. Her H&H is 9.8 and 31.8 with a previous normal a year ago. D-dimer is elevated at 0.84. Troponins were negative x2. Her BNP is 5790. Her urine is negative for UTI. The patient was given Lasix in the emergency room. The patient is being admitted to observation status on the date of service of 10/24/2024. Acute on chronic congestive heart failure diastolic received IV Lasix. Chest x-ray negative however has 2+ pitting edema echo ordered cardiology consultation troponin x2 negative. CTA showed large right and small left pleural effusion with pulmonary edema. Continue IV diuresis with 40 mg IV b.i.d. echo with moderate to severe mitral regurgitation moderate tricuspid regurgitation and EF of 30%. It was suspected with 1 of the reports in the chart that see has nonischemic cardiomyopathy and had a negative catheterization in 2019. This document that is in her chart is for wrong patient and hence cardiomyopathies had a new diagnosis for her. Cardiology on board and planning for left heart catheterization today. Continue with losartan and metoprolol as ordered. Diuresis has been switched to oral Lasix. Jardiance added. Blood pressure borderline and hence consider addition of spironolactone as an outpatient basis. If non ischemic cardiomyopathy, plan for sleep apnea evaluation as outpatient basis Elevated troponin 0.015-0.03 3-0.036 Anemia Hypertension Hyperlipidemia Asthma Obesity DVT prophylaxis Lovenox Code status full code Subjective Date/time seen: 10/28/24 11:47 Interval history: No overnight events. Patient denies any chest pain or shortness of breath. She feels much better. Leg swelling has improved. She is going for a heart catheterization today. Review of Systems Review of Systems: All systems reviewed & are unremarkable except as noted in HPI and below Exam Narrative: GENERAL: Alert and oriented x3, in no respiratory distress HEAD: Normal with no signs of head trauma. EYES: EOMI, conjunctiva normal ENT: Hearing grossly intact LUNGS: Some rhonchi bilaterally lower lungs HEART: Regular rate and rhythm ABD: Soft, nontender to palpation EXT: Normal range of motion, bilateral lower extremity edema which is improving SKIN: No rashes or lesions. NEURO: Alert and oriented x 3. No gross focal sensory or strength deficits PSYCH: Normal affect Objective Data Vital Signs Vital Signs: Vital Signs - 24 hr 10/27/24 12:00 10/27/24 15:10 10/27/24 16:00 Temperature 97.8 F Pulse Rate 77 79 78 Respiratory Rate 18 Blood Pressure 101/62 Pulse Oximetry 100 Oxygen Delivery Fraction of Inspired Oxygen 10/27/24 19:20 10/27/24 19:55 10/27/24 19:56 Temperature 97.7 F Pulse Rate 82 78 Respiratory Rate 20 18 Blood Pressure 104/56 L Pulse Oximetry 100 98 Oxygen Delivery Room Air Fraction of Inspired Oxygen 21 10/27/24 20:00 10/27/24 20:00 10/28/24 00:00 Temperature 97.2 F L Pulse Rate 81 78 Respiratory Rate 20 Blood Pressure 100/65 Pulse Oximetry 100 Oxygen Delivery Room Air Fraction of Inspired Oxygen 10/28/24 00:00 10/28/24 03:49 10/28/24 04:00 Temperature 97.8 F Pulse Rate 78 80 80 Respiratory Rate 18 20 Blood Pressure 98/65 L Pulse Oximetry 100 Oxygen Delivery Fraction of Inspired Oxygen 10/28/24 04:00 10/28/24 08:00 10/28/24 08:00 Temperature 97.6 F Pulse Rate 77 62 Respiratory Rate 18 Blood Pressure 108/70 Pulse Oximetry 96 Oxygen Delivery Room Air Fraction of Inspired Oxygen 10/28/24 08:00 10/28/24 08:30 10/28/24 08:31 Temperature Pulse Rate 86 82 82 Respiratory Rate 20 Blood Pressure 112/74 Pulse Oximetry Oxygen Delivery Fraction of Inspired Oxygen 10/28/24 08:37 10/28/24 10:11 10/28/24 10:29 Temperature Pulse Rate 76 Respiratory Rate 16 Blood Pressure Pulse Oximetry Oxygen Delivery Room Air Room Air Fraction of Inspired Oxygen Intake/Output Intake/Output: Intake & Output 10/25/24 10/26/24 10/27/24 10/28/24 23:59 23:59 23:59 23:59 Intake Total 5138 698 7537 Output Total 1650 2300 Balance -399 -1460 1510 Meds/Results Medications: Active Medications Generic Name Dose Route Start Last Admin Trade Name Freq PRN Reason Stop Dose Admin Albuterol 2 puff 10/24/24 05:35 10/28/24 08:36 Albuterol Sulfate (*Sp) Aerosol 1 Puff INHALATION 2 puff Q4H PRN Administration Shortness Of Breath Or Wheezing Aspirin 81 mg 10/24/24 09:00 10/28/24 08:30 Aspirin 81 Mg Enteric Tablet PO 81 mg QAM VY Administration Empagliflozin 10 mg 10/28/24 09:00 10/28/24 08:30 Empagliflozin 10 Mg Tablet PO 10 mg DAILY VY Administration Ergocalciferol 1,250 mcg 10/30/24 08:00 Ergocalciferol (Vitamin D2) 1,250 Mcg (50,000 Units) Capsule PO Th@0800 [facility] Furosemide 40 mg 10/27/24 09:00 10/28/24 08:32 Furosemide 40 Mg Tablet PO Not Given DAILY VY Loratadine 10 mg 10/24/24 09:00 10/28/24 08:32 Loratadine 10 Mg Tablet PO 10 mg QAM [facility] Administration Losartan Potassium 100 mg 10/24/24 09:00 10/28/24 08:30 Losartan Potassium 100 Mg Tablet PO 100 mg DAILY VY Administration Metoprolol Succinate 25 mg 10/24/24 09:00 10/28/24 08:31 Metoprolol Succinate Ext Rel 25 Mg Tabcr PO 25 mg QAM VY Administration Montelukast Sodium 10 mg 10/24/24 09:00 10/28/24 08:31 Montelukast Sodium 10 Mg Tablet PO 10 mg DAILY VY Administration Potassium Chloride 40 meq 10/25/24 17:00 10/28/24 08:32 Potassium Chloride 20 Meq Packet (For Liquid) PO Not Given BID [facility] Pravastatin Sodium 40 mg 10/24/24 09:00 10/28/24 08:31 Pravastatin Sodium 20 Mg Tablet PO 40 mg DAILY VY Administration Fluticasone/Salmeterol 2 puff 10/24/24 08:00 10/28/24 08:35 Fluticasone/Salmeterol 45-21 Mcg Inhaler 1 Puff INHALATION 2 puff Q12HRT VY Administration Radiology Results: ITS Impressions Chest X-Ray 10/23/24 17:25 IMPRESSION: 1. No acute cardiopulmonary disease. 2. Small nodular opacity projecting over the lateral left midlung zone which appears relatively dense for size which suggests either a bone island in the left fourth rib or scapula calcified nodule related to old granulomatous disease. Could consider follow-up low-dose noncontrast chest CT to exclude a noncalcified pulmonary nodule. Venous Doppler Study 10/24/24 06:05 IMPRESSION: 1. No fem-pop DVT either leg. 2. Calf veins poorly seen due to leg swelling. Chest CTA 10/24/24 07:01 IMPRESSION: 1. No PE. 2. Large right and small left pleural effusions, with pulmonary edema. 3. Gallbladder wall thickening; cholecystitis not excluded. Labs Labs: Laboratory Results - last 24 hr 10/28/24 04:17 WBC 8.0 RBC 3.55 L Hgb 9.7 L Hct 32.0 L MCV 90.1 MCH 27.3 MCHC 30.3 L RDW 17.1 H Plt Count 216 MPV 11.8 H Immature Gran % (Auto) 0.4 Neut % (Auto) 67.7 Lymph % (Auto) 19.1 [place] % (Auto) 8.1 Eos % (Auto) 3.8 Baso % (Auto) 0.9 Lymph # (Auto) 1.53 [place] # (Auto) 0.7 H Eos # (Auto) 0.3 Baso # (Auto) 0.1 Abs Immat Gran (auto) 0.03 Absolute Neuts (auto) 5.4 Absolute Nucleated RBC 0.000 Nucleated RBC % 0.0 Sodium 133 L Potassium 4.4 Chloride 100 Carbon Dioxide 24 Anion Gap 9 BUN 18 H Creatinine 0.84 Estim Creat Clear Calc 67 Estimated GFR > 60 Glucose 104 Calcium 8.6 Magnesium 2.1 Total Bilirubin 0.6 AST 42 H ALT 26 Alkaline Phosphatase 105 Total Protein 6.8 Albumin 3.6
--- NOTE | 2024-10-28 13:03 | PC.NURSE ---
On 10/28/24, the student, [Anisha Major], provided care and completed [facility] documentation on this patient. I have reviewed the student's documentation and agree with the findings.
--- NOTE | 2024-10-28 13:28 | WPDCARDPROC ---
Cardiac Cath Procedure Note Date of procedure:: 10/28/24 Performing physician:: Jessica Christensen MD Indication:: CATHETERIZATION LABORATORY REPORT Procedure Date: 10/28/2024 Anesthesia: Versed and Fentanyl were ordered and given in my presence at 12:07 p.m., procedure ended at 12:45 p.m.. Supervision of nurse monitored moderate sedation with Versed and Fentanyl was provided for 38 minutes. Pre-op Diagnosis: Acute systolic heart failure New cardiomyopathy with LVEF 30% Post-op Diagnosis: No CAD Acute systolic heart failure LVEDP 24 mm Hg Procedure(s): Ultrasound-guided right common femoral artery access Left heart catheterization with coronary angiography He was doses music 6 [place] Angio-Seal Access Site: Right common femoral artery Brief History and Clinical Indications: All risks, benefits and alternatives to left heart catheterization with or without percutaneous coronary intervention was discussed at length with the patient. Risk of complications including but not limited to bleeding, infection, arrhythmia, stroke, worsening kidney function, blood loss, groin hematoma, limb loss, emergency coronary artery bypass grafting, and even were discussed with the patient and all questions were answered. The patient understood and wished to proceed. Time out called, patient name, date of , medical record number, allergies, procedure performed, identify Electric Repair Supervisor, patient and staff member concurred with accurate data, procedure carried on. Findings: LEFT HEART CATHETERIZATION FINDINGS: 1. Left main: The left main coronary artery is widely patent without any significant obstructive disease. 2. Left anterior descending: The LAD and the diagonal branches are patent without any significant obstructive angiographic disease. 3. Left circumflex: The left circumflex artery and the main marginal branches are patent without any significant obstructive angiographic disease. Left dominant system. The LCX gives of LPDA which is patent without any significant obstructive angiographic disease. 4. Ramus intermedius: There is a large ramus intermedius artery that is patent without any significant obstructive angiographic disease. 5. Right coronary artery: The RCA is small and patent without any significant obstructive angiographic disease. The RCA is non dominant vessel. 6. Left ventricle: A. End-diastolic pressure 24 mmHg. B. LV gram deferred. C. No significant gradient across aortic valve on catheter pullback. 7. Opening AO pressure 105/65/85 and closing AO pressure 94/73/80 3 mm Hg Description of Procedure: Informed consent signed and placed in the chart. Patient transferred to high density press laborer room. Prepped and draped in usual sterile fashion. 2% lidocaine in right groin area. Micropuncture needle used to access right common femoral artery with Seldinger technique under fluoroscopic guidance. J wire advanced, micropuncture cannula placed. Right iliofemoral angiogram performed, access confirmed and micropuncture cannula exchanged for 6-FR sheath. Five [place] JL4 diagnostic catheter engaged Left Main Coronary Artery. 5 [place] JR4 diagnostic catheter engaged Right Coronary Artery. Multiple orthogonal angiogram obtained and reviewed 5 [place] JR4 diagnostic catheter crossed aortic valve to obtain LVEDP, LV angiogram deferred. Hemostasis was achieved by 6 [place] Angio-Seal Assessment: Acute systolic heart failure, elevated LVEDP of 24 mm Hg New cardiomyopathy with EF of 30% No CAD Post Operative Condition: Stable No significant blood loss Disposition: Floor/Home Plan: The patient will be monitored in the recovery area. Continue guideline directed medical therapy for cardiomyopathy. IV diuresis given elevated LVEDP. Continue aggressive medical therapy and risk factor modification. Jessica Christensen MD, MS, FACC, [facility] Interventional Cardiology
--- NOTE | 2024-10-28 14:45 | SUR.PHASEII ---
Pt given meal tray at this time. No additional needs.
--- NOTE | 2024-10-28 15:30 | SUR.PHASEII ---
Pt ambulated to bathroom and back. No additional needs.
[2024-10-28] MEDS: FUROSEMIDE INJ 40 MG/4 ML VIAL IV PUSH (16:13)
--- NOTE | 2024-10-28 16:45 | SUR.PHASEII ---
One unmeasured void into toilet at this time.
--- NOTE | 2024-10-28 16:48 | SUR.PHASEII ---
Post cath instructions reviewed w/ pt and pt verbalized understanding.
[2024-10-28] MEDS: POTASSIUM CHLORIDE 20 MEQ PACKET (FOR LIQUID) 40 MEQ PO (17:42)
[2024-10-29] VITALS (9 sets, daily range): BP systolic 100–131; BP diastolic 51–76; PULSE 74–102; RESP 17–20; TEMP 36.5–36.9; O2SAT 96–100
[2024-10-29] MEDS: ALBUTEROL SULFATE (*SP) AEROSOL 1 PUFF 2 PUFF INHALATION ×2 (00:52→07:38)
[2024-10-29 04:00] LABS: Hematocrit 32.3 % (37.0-47.0); Hemoglobin 9.8 g/dL (12.0-15.0); Immature Granulocyte Percent A 0.3 % (0-0.5); Lymphocytes Absolute Auto 1.76 K/mm3 (0.9-3.2); Mean Corpuscular HGB Conc 30.3 g/dl (32-36); Mean Corpuscular Hemoglobin 27.1 pg (26-34); Mean Corpuscular Volume 89.5 fl (80-100); Nucleated Red Blood Cells Absolute Auto 0.000 K/mm3 (0.0-0.012); Nucleated Red Blood Cells Perc 0.0 % (0.0-0.2); Platelet Count Result 220 k/mm3 (150-375); Red Blood Count 3.61 M/mm3 (4.2-5.4); White Blood Count 7.4 K/mm3 (4.5-10.0)
[2024-10-29 04:27] LABS: Alanine Aminotransferase 26 U/L (6-35); Albumin Level 3.7 g/dL (3.5-5.1); Alkaline Phosphatase 92 U/L (38-126); Anion Gap 9 mmol/L (4-12); Aspartate Amino Transferase 36 U/L (14-36); Bilirubin,Total 0.8 mg/dL (0.2-1.3); Blood Urea Nitrogen 19 mg/dL (7-17); Calcium 8.9 mg/dL (8.4-10.2); Carbon Dioxide 24 mmol/L (22-30); Chloride 101 mmol/L (98-107); Estimated CRCL calculation 58 ml/min; Estimated Glomerular Filt Rate 57; Glucose 94 mg/dL (65-110); Magnesium 2.2 mg/dL (1.6-2.3); Potassium 4.4 mmol/L (3.4-5.0); Sodium 134 mmol/L (137-145); Total Protein 6.9 g/dL (6.3-8.2)
[2024-10-29] MEDS: FLUTICASONE/SALMETEROL 45-21 MCG INHALER 1 PUFF 2 PUFF INHALATION (07:38)
[2024-10-29] MEDS: PRAVASTATIN SODIUM 20 MG TABLET 40 MG PO (08:08)
[2024-10-29] MEDS: EMPAGLIFLOZIN 10 MG TABLET PO (08:08)
[2024-10-29] MEDS: FUROSEMIDE 40 MG TABLET PO (08:08)
[2024-10-29] MEDS: LOSARTAN POTASSIUM 100 MG TABLET PO (08:08)
[2024-10-29] MEDS: MONTELUKAST SODIUM 10 MG TABLET PO (08:08)
[2024-10-29] MEDS: ASPIRIN 81 MG ENTERIC TABLET PO (08:08)
[2024-10-29] MEDS: LORATADINE 10 MG TABLET PO (08:09)
[2024-10-29] MEDS: METOPROLOL SUCCINATE EXT REL 25 MG TABCR PO (08:09)
[2024-10-29] MEDS: POTASSIUM CHLORIDE 20 MEQ PACKET (FOR LIQUID) 40 MEQ PO (08:12)
--- NOTE | 2024-10-29 08:55 | P.PNCA_ITS ---
Progress Note: A&P Assessment and Plan (1) Acute systolic heart failure: Code(s): I50.21 - Acute systolic (congestive) heart failure Status: Acute Assessment and Plan: Euvolemic on exam today. (2) Essential hypertension: Code(s): I10 - Essential (primary) hypertension Status: Acute Assessment and Plan: Well controlled. (3) Elevated troponin level: Code(s): R79.89 - Other specified abnormal findings of blood chemistry Status: Acute Assessment and Plan: Elevated troponin level is most likely secondary to acute systolic heart failure. No chest pain. (4) New onset a-fib: Code(s): I48.91 - Unspecified atrial fibrillation Status: Acute Assessment and Plan: Converted back to sinus rhythm. (5) Mixed hyperlipidemia: Code(s): E78.2 - Mixed hyperlipidemia Status: Acute Plan Diagnosis: Acute systolic heart failure Question of new onset of a fib this admission Elevated troponin without chest pain-most likely supply demand mismatch due to acute systolic heart failure; catheterization showed no CAD Nonsustained VT Valvular heart disease-Moderate to severe MR; Moderate TR Severe pulmonary hypertension Hypertension-controlled Hyperlipidemia-on statin Elevated D-dimer- CTA chest negative for PE and venous doppler negative for DVT Plan: Continue Lasix 40 mg daily Check weights, ins and outs, renal function daily Check and replace electrolytes to keep potassium greater than 4 and magnesium greater than 2 Guideline directed medical therapy for systolic heart failure. Continue metoprolol 25 mg daily, losartan 100 mg p.o. daily and empagliflozin 10 mg daily. BP too soft for addition of spironolactone Continue aspirin, statin I did not see tele or EKG showing A fib. I will place an event monitor for 1 month at discharge to evaluate if she has any A fib. If any A fib is noted on the event monitor, then she will need anticoagulation Okay to discharge from a cardiac standpoint. Will need close OP cardiac follow up, repeat TTE in 3 months after guideline directed medical therapy, follow up on event monitor at outpatient appointment, and sleep study Thank you for allowing us participate in the care of this patient. Cardiology will sign off. Please call us with any questions. Subjective Date/time seen: 10/29/24 08:55 Interval history: Reason for encounter: Congestive heart failure Interval history: Patient had cardiac catheterization yesterday which showed no CAD. This morning she is sitting up in a chair and states she has no chest pain or shortness of breath. Review of Systems Review of Systems: All systems reviewed & are unremarkable except as noted in HPI and below (in HPI ) Exam Narrative: General: Alert oriented x3, no acute distress Neck: Supple, no JVD Chest: Bilaterally clear to auscultation, no rales or rhonchi Cardiac: S1, S2 +, regular rate, regular rhythm, no murmurs or rubs Extremities: Bilateral lower extremity edema 1+, no skin rash Neurologic: Alert and oriented x3, no focal neurological deficits Objective Data Vital Signs Vital Signs: Vital Signs - 24 hr 10/28/24 10:11 10/28/24 10:29 10/28/24 13:00 Temperature Pulse Rate Pulse Rate [Bilateral Pedal (Dorsalis Pedis) Palpation] 75 Pulse Rate [Right Radial] 75 Respiratory Rate Blood Pressure Pulse Oximetry Oxygen Delivery Room Air Room Air Fraction of Inspired Oxygen 10/28/24 13:00 10/28/24 13:15 10/28/24 13:15 Temperature Pulse Rate 75 71 Pulse Rate [Bilateral Pedal (Dorsalis Pedis) Palpation] 71 Pulse Rate [Right Radial] 71 Respiratory Rate 17 18 Blood Pressure 112/83 111/78 Pulse Oximetry 99 100 Oxygen Delivery Room Air Room Air Fraction of Inspired Oxygen 10/28/24 13:30 10/28/24 13:30 10/28/24 13:45 Temperature Pulse Rate 71 Pulse Rate [Bilateral Pedal (Dorsalis Pedis) Palpation] 71 74 Pulse Rate [Right Radial] 71 74 Respiratory Rate 14 Blood Pressure 103/76 Pulse Oximetry 100 Oxygen Delivery Room Air Fraction of Inspired Oxygen 10/28/24 13:45 10/28/24 14:00 10/28/24 14:00 Temperature Pulse Rate 74 75 Pulse Rate [Bilateral Pedal (Dorsalis Pedis) Palpation] 75 Pulse Rate [Right Radial] 75 Respiratory Rate 15 17 Blood Pressure 108/69 109/73 Pulse Oximetry 99 100 Oxygen Delivery Room Air Room Air Fraction of Inspired Oxygen 10/28/24 14:15 10/28/24 14:15 10/28/24 14:30 Temperature Pulse Rate 72 Pulse Rate [Bilateral Pedal (Dorsalis Pedis) Palpation] 72 86 Pulse Rate [Right Radial] 72 86 Respiratory Rate 13 Blood Pressure 109/81 Pulse Oximetry 98 Oxygen Delivery Room Air Fraction of Inspired Oxygen 10/28/24 14:30 10/28/24 14:45 10/28/24 14:45 Temperature Pulse Rate 86 82 Pulse Rate [Bilateral Pedal (Dorsalis Pedis) Palpation] 82 Pulse Rate [Right Radial] 82 Respiratory Rate 15 18 Blood Pressure 121/75 127/79 Pulse Oximetry 98 98 Oxygen Delivery Room Air Room Air Fraction of Inspired Oxygen 10/28/24 15:00 10/28/24 15:00 10/28/24 15:15 Temperature Pulse Rate 78 Pulse Rate [Bilateral Pedal (Dorsalis Pedis) Palpation] 78 80 Pulse Rate [Right Radial] 78 80 Respiratory Rate 16 Blood Pressure 118/78 Pulse Oximetry 99 Oxygen Delivery Room Air Fraction of Inspired Oxygen 10/28/24 15:15 10/28/24 15:30 10/28/24 15:30 Temperature Pulse Rate 80 77 Pulse Rate [Bilateral Pedal (Dorsalis Pedis) Palpation] 77 Pulse Rate [Right Radial] 77 Respiratory Rate 16 14 Blood Pressure 112/69 99/83 L Pulse Oximetry 99 99 Oxygen Delivery Room Air Room Air Fraction of Inspired Oxygen 10/28/24 16:00 10/28/24 16:00 10/28/24 16:30 Temperature Pulse Rate 76 Pulse Rate [Bilateral Pedal (Dorsalis Pedis) Palpation] 76 80 Pulse Rate [Right Radial] 76 80 Respiratory Rate 15 Blood Pressure 118/75 Pulse Oximetry 98 Oxygen Delivery Room Air Fraction of Inspired Oxygen 10/28/24 16:30 10/28/24 16:53 10/28/24 17:46 Temperature 36.4 C Pulse Rate 80 82 89 Pulse Rate [Bilateral Pedal (Dorsalis Pedis) Palpation] Pulse Rate [Right Radial] Respiratory Rate 16 20 Blood Pressure 113/76 132/98 H Pulse Oximetry 100 100 Oxygen Delivery Room Air Fraction of Inspired Oxygen 10/28/24 20:00 10/28/24 20:00 10/28/24 20:00 Temperature 36.4 C Pulse Rate 85 88 Pulse Rate [Bilateral Pedal (Dorsalis Pedis) Palpation] Pulse Rate [Right Radial] Respiratory Rate 17 Blood Pressure 114/65 Pulse Oximetry 100 Oxygen Delivery Room Air Fraction of Inspired Oxygen 10/28/24 20:01 10/28/24 20:03 10/28/24 22:00 Temperature Pulse Rate 78 78 79 Pulse Rate [Bilateral Pedal (Dorsalis Pedis) Palpation] Pulse Rate [Right Radial] Respiratory Rate 20 20 Blood Pressure Pulse Oximetry 99 Oxygen Delivery Room Air Fraction of Inspired Oxygen 21 10/28/24 23:02 10/29/24 00:00 10/29/24 00:00 Temperature 36.6 C Pulse Rate 76 79 Pulse Rate [Bilateral Pedal (Dorsalis Pedis) Palpation] Pulse Rate [Right Radial] Respiratory Rate 16 Blood Pressure 113/67 Pulse Oximetry 100 Oxygen Delivery Room Air Fraction of Inspired Oxygen 10/29/24 00:52 10/29/24 03:45 10/29/24 04:00 Temperature 36.9 C Pulse Rate 102 H 77 Pulse Rate [Bilateral Pedal (Dorsalis Pedis) Palpation] Pulse Rate [Right Radial] Respiratory Rate 20 17 Blood Pressure 102/51 L Pulse Oximetry 100 Oxygen Delivery Room Air Fraction of Inspired Oxygen 10/29/24 04:00 10/29/24 07:39 10/29/24 08:00 Temperature 36.6 C Pulse Rate 74 84 81 Pulse Rate [Bilateral Pedal (Dorsalis Pedis) Palpation] Pulse Rate [Right Radial] Respiratory Rate 20 20 Blood Pressure 131/66 Pulse Oximetry 100 Oxygen Delivery Fraction of Inspired Oxygen 10/29/24 08:09 10/29/24 08:15 Temperature Pulse Rate 81 98 Pulse Rate [Bilateral Pedal (Dorsalis Pedis) Palpation] Pulse Rate [Right Radial] Respiratory Rate Blood Pressure Pulse Oximetry Oxygen Delivery Fraction of Inspired Oxygen Intake/Output Intake/Output: Intake & Output 10/26/24 10/27/24 10/28/24 10/29/24 23:59 23:59 23:59 23:59 Intake Total 840 1510 480 320 Output Total 2300 1300 Balance -1460 1510 -820 320 Meds/Results Medications: Active Medications Generic Name Dose Route Start Last Admin Trade Name Freq PRN Reason Stop Dose Admin Albuterol 2 puff 10/24/24 05:35 10/29/24 07:38 Albuterol Sulfate (*Sp) Aerosol 1 Puff INHALATION 2 puff Q4H PRN Administration Shortness Of Breath Or Wheezing Aspirin 81 mg 10/24/24 09:00 10/29/24 08:08 Aspirin 81 Mg Enteric Tablet PO 81 mg QAM VY Administration Empagliflozin 10 mg 10/28/24 09:00 10/29/24 08:08 Empagliflozin 10 Mg Tablet PO 10 mg DAILY VY Administration Ergocalciferol 1,250 mcg 10/30/24 08:00 Ergocalciferol (Vitamin D2) 1,250 Mcg (50,000 Units) Capsule PO Th@0800 VY Furosemide 40 mg 10/27/24 09:00 10/29/24 08:08 Furosemide 40 Mg Tablet PO 40 mg DAILY VY Administration Loratadine 10 mg 10/24/24 09:00 10/29/24 08:09 Loratadine 10 Mg Tablet PO 10 mg QAM VY Administration Losartan Potassium 100 mg 10/24/24 09:00 10/29/24 08:08 Losartan Potassium 100 Mg Tablet PO 100 mg DAILY VY Administration Metoprolol Succinate 25 mg 10/24/24 09:00 10/29/24 08:09 Metoprolol Succinate Ext Rel 25 Mg Tabcr PO 25 mg QAM VY Administration Montelukast Sodium 10 mg 10/24/24 09:00 10/29/24 08:08 Montelukast Sodium 10 Mg Tablet PO 10 mg DAILY VY Administration Potassium Chloride 40 meq 10/25/24 17:00 10/29/24 08:12 Potassium Chloride 20 Meq Packet (For Liquid) PO 40 meq BID VY Administration Pravastatin Sodium 40 mg 10/24/24 09:00 10/29/24 08:08 Pravastatin Sodium 20 Mg Tablet PO 40 mg DAILY VY Administration Fluticasone/Salmeterol 2 puff 10/24/24 08:00 10/29/24 07:38 Fluticasone/Salmeterol 45-21 Mcg Inhaler 1 Puff INHALATION 2 puff Q12HRT VY Administration Radiology Results: ITS Impressions Chest X-Ray 10/23/24 17:25 IMPRESSION: 1. No acute cardiopulmonary disease. 2. Small nodular opacity projecting over the lateral left midlung zone which appears relatively dense for size which suggests either a bone island in the left fourth rib or scapula calcified nodule related to old granulomatous disease. Could consider follow-up low-dose noncontrast chest CT to exclude a noncalcified pulmonary nodule. Venous Doppler Study 10/24/24 06:05 IMPRESSION: 1. No fem-pop DVT either leg. 2. Calf veins poorly seen due to leg swelling. Chest CTA 10/24/24 07:01 IMPRESSION: 1. No PE. 2. Large right and small left pleural effusions, with pulmonary edema. 3. Gallbladder wall thickening; cholecystitis not excluded. Labs Labs: Laboratory Results - last 24 hr 10/29/24 03:19 WBC 7.4 RBC 3.61 L Hgb 9.8 L Hct 32.3 L MCV 89.5 MCH 27.1 MCHC 30.3 L RDW 16.9 H Plt Count 220 MPV 11.6 H Immature Gran % (Auto) 0.3 Neut % (Auto) 63.3 Lymph % (Auto) 23.8 Meagher % (Auto) 8.4 Eos % (Auto) 3.1 Baso % (Auto) 1.1 Lymph # (Auto) 1.76 Meagher # (Auto) 0.6 Eos # (Auto) 0.2 Baso # (Auto) 0.1 Abs Immat Gran (auto) 0.02 Absolute Neuts (auto) 4.7 Absolute Nucleated RBC 0.000 Nucleated RBC % 0.0 Sodium 134 L Potassium 4.4 Chloride 101 Carbon Dioxide 24 Anion Gap 9 BUN 19 H Creatinine 0.98 Estim Creat Clear Calc 58 Estimated GFR 57 L Glucose 94 Calcium 8.9 Magnesium 2.2 Total Bilirubin 0.8 AST 36 ALT 26 Alkaline Phosphatase 92 Total Protein 6.9 Albumin 3.7
--- NOTE | 2024-10-29 14:31 | P.DS_ITS ---
DS: Admitting Diagnosis Discharge Date 10/29/24 Admitting Diagnosis Shortness of breath DS: Discharge Diagnosis Discharge Diagnosis (1) Congestive heart failure: Code(s): I50.9 - Heart failure, unspecified Status: Acute (2) Essential hypertension: Code(s): I10 - Essential (primary) hypertension Status: Acute (3) Mixed hyperlipidemia: Code(s): E78.2 - Mixed hyperlipidemia Status: Acute (4) Asthma: Qualifiers: Asthma severity: unspecified severity Asthma persistence: unspecified Asthma complication type: unspecified Qualified Code(s): J45.909 - Unspecified asthma, uncomplicated Code(s): J45.909 - Unspecified asthma, uncomplicated Status: Acute (5) Obesity: Qualifiers: Obesity type: due to excess calories Obesity classification: adult class 1 (BMI 30 - 34.9) Serious obesity comorbidity presence: without serious comorbidity Body mass index: BMI 33.0-33.9 Qualified Code(s): E66.09 - Other obesity due to excess calories; Z68.33 - Body mass index [BMI] 33.0-33.9, adult Code(s): E66.9 - Obesity, unspecified Status: Acute (6) Acute systolic heart failure: Code(s): I50.21 - Acute systolic (congestive) heart failure Status: Acute DS: Summary Hospital Course Reason for hospitalization: 64yo female with hx of CHF who stated she has been short of breath and had i ncreased edema. Please see H&P for details. Hospital Course: In the ED, her CXR showed no acute findings but CTA chest showed no PE but large right and small left pleural effusion, pulmonary edema and GB wall thickening. DDimer was positive. LFTs normal and no focal abdominal pain to suggest acute cholecystitis. Lower extremity venous doppler was negative for DVT. CMP was unremarkable. BNP 5800. Troponin mildly elevated at 0.037 but flat felt related to CHF. WBC and platelet count remained normal. Hgb was low at 9.8 but stable throughout the hospital course. Iron studies consistent with iron deficiency anemia. Her urine is negative for UTI. EKG showing sinus tachycardia with frequent PVCs, possible o;d anterior NE and nonspecific T wave changes (repeat EKG showing similar findings). The patient was started on IV Lasix in the emergency room and was admitted to IMU. Cardiology consulted. Echo showing EF 25-30%, moderaate LAE, moderate-severe MR, moderate TR and felt to have AFib by Echo. The cardiomyopathy is a new diagnosis for her. Left heart catheterization performed showing no CAD but with acute systolic CHF with elevated LVEDP 24mmHg. She was continued on losartan and Toprol XL and Empagliflozin added. She did well with good diuresis and improvement in her edema. She was transtioned to oral Lasix. Could not add spironolactone due to soft BP. Possible AFib by Echo but no other evidence to suggest AFib by tele monitoring or by EKG. Plan is for to have an event monitor after discharge. Plan also for outpatient sleep study. She feels 'a lot better'. She has been up walking in the halls. She overall did well and was able to be discharged home on 10/29/24. Medications discussed including side effects. All questions answered. Status at Discharge Cognitive/behavioral status at discharge: stable Time Spent with Patient Time attestation: Total time spent providing and/or coordinating discharge services: 35 minutes Time spent: Greater than 30 minutes Exam Narrative: AF 97.7 100/76 86 18 96% ra Gen - NARD Chest - CTA bilaterally, nml RR CV - RRR S1/S2. Tele showing occasional PVCs. No evidence of AFib Abd - Soft, NT/ND, Positive BS Ext - No pedal edema Neuro - Alert and appropriate Psych - Nml mood and affect Skin - Warm and dry DS: Data Data Completed and Pending Labs on day of discharge: Labs from last 24 hours 10/29/24 03:19 WBC 7.4 RBC 3.61 L Hgb 9.8 L Hct 32.3 L MCV 89.5 MCH 27.1 MCHC 30.3 L RDW 16.9 H Plt Count 220 MPV 11.6 H Immature Gran % (Auto) 0.3 Neut % (Auto) 63.3 Lymph % (Auto) 23.8 [place]iscoe % (Auto) 8.4 Eos % (Auto) 3.1 Baso % (Auto) 1.1 Lymph # (Auto) 1.76 [place] # (Auto) 0.6 Eos # (Auto) 0.2 Baso # (Auto) 0.1 Abs Immat Gran (auto) 0.02 Absolute Neuts (auto) 4.7 Absolute Nucleated RBC 0.000 Nucleated RBC % 0.0 Sodium 134 L Potassium 4.4 Chloride 101 Carbon Dioxide 24 Anion Gap 9 BUN 19 H Creatinine 0.98 Estim Creat Clear Calc 58 Estimated GFR 57 L Glucose 94 Calcium 8.9 Magnesium 2.2 Total Bilirubin 0.8 AST 36 ALT 26 Alkaline Phosphatase 92 Total Protein 6.9 Albumin 3.7 Discharge Plan Discharge Attending physician on discharge: Kaleb Arizmendi Consulting providers: Jessica Christensen Discharging Clinician: Kaleb Arizmendi Anticipated Discharge Date/Time: 10/29/24 14:54 Patient Disposition: Home Activity: as tolerated Diet: heart healthy Discharge Instructions: [facility] [address] [place] [address] DISCHARGE INSTRUCTIONS - POST RADIAL CATH Activity 1. No driving for 24 hours. 2. No lifting more than 5 lb with affected arm for 1 week. 3. May shower ( tomorrow) but no excessive soaking of affected hand/wrist (such as washing dishes), swimming pool or hot tub for 5 days. Wound Care 1. May remove gauze dressing in the morning and put Band-Aid over affected radial site. Keep site covered for 3 days. 2. Observe for redness, drainage, swelling or bleeding. Medications DO NOT STOP YOUR MEDICATIONS ONLY YOUR CHAIN MORTISER OPERATOR CAN STOP THE FOLLOWING MEDICATIONS - PLEASE CALL THE OFFICE WITH QUESTIONS. *Aspirin *Ticagrelor (Brilinta) *Atorvastatin *Lisinopril or ARB *Metoprolol tartrate or succinate *Clopidogrel (Plavix) *Prasugrel (Effient) Important Reminders 1. Follow a heart healthy diet paying extra attention to cholesterol and fats. 2. Stay hydrated. 3. If you have chest pain unrelieved by rest or nitroglycerin (if prescribed) call 911 immediately. 4. If you miss one dose of Brilinta (if prescribed) take a tablet at the next time due. If you miss 2 doses take a tablet when you remember and resume at the next time due. *For any other questions please call the office at [phone]. Office hours are 8AM 4:30PM Sunday through Sunday. Check blood pressure 1 to 2 times a day. Record and bring into your doctor for review. Call your doctor if your blood pressure is greater than 180/110 or less than 100/45. Take precautions to avoid falls. Rise slowly from a lying or sitting position. Pause before standing or walking. Check daily morning weights after voiding. Call your doctor if you gain more than 3 lb in 2 days or 5 lb in 1 week. Contact your doctor or call 911 and come to the Emergency Room if you have lightheadedness with standing or other worrisome symptoms. Avoid NSAIDs (ibuprofen, naproxen, Aleve). Tylenol is safe to take. Follow-up with Cardiology in 3-4 weeks. Please call for an appointment. Follow-up with your primary care provider in 1-2 weeks. Please call for appointment. As we spoke about, the media supervisor recommended an outpatient sleep study. Please arrange with the Primary Care Nurse Practitioner or your PCP You will be going home with a interventional radiologist per cardiology Speak with your PCP about having further testing for your anemia Thank you for using [facility] for your health care needs. Patient Instructions: Antibiotic Form Patient Language: St Helen[place] Stand Alone Forms: General Discharge Information Follow-up/Referrals: Jessica Christensen MD [Physician, Cardiology] - Call for Appointment Mark Siddiqui DO [Primary Care Provider, Internal Medicine] - Call for Appointment Discharge Medications: New metoprolol succinate [Toprol XL] 25 mg Tablet Extended Release 24 Hr 25 mg PO QAM Qty: 30 2RF potassium chloride 20 mEq Packet 40 meq PO DAILY Qty: 30 0RF furosemide 40 mg Tablet 40 mg PO DAILY Qty: 30 1RF ferrous sulfate 325 mg (65 mg iron) tablet 325 mg PO DAILY Qty: 30 0RF aspirin 81 mg Tablet,Delayed Release (Dr/Ec) 81 mg PO QAM Qty: 30 2RF Jardiance 10 mg Tablet 10 mg PO DAILY Qty: 30 2RF Continued fexofenadine [Chelsy Allergy] 180 mg tablet 180 mg PO DAILY cholecalciferol (vitamin D3) 1,250 mcg (50,000 unit) tablet 1,250 mcg PO WEEKLY Qty: 8 0RF pravastatin 40 mg tablet 40 mg PO DAILY Qty: 90 1RF Rx Instructions: LAST REFILL UNTIL APPOINTMENT IS MADE albuterol sulfate 90 mcg/actuation HFA aerosol inhaler See Rx Instructions .ROUTE .COMPLEX Qty: 8.5 3RF Dose Instruction: INHALE 1 PUFF BY MOUTH EVERY 4 HOURS NEEDED SHORTNESS OF BREATH OR WHEEZING Rx Instructions: INHALE 1 PUFF BY MOUTH EVERY 4 HOURS NEEDED SHORTNESS OF BREATH OR WHEEZING montelukast 10 mg tablet 10 mg PO DAILY Qty: 90 1RF losartan 100 mg tablet 100 mg PO DAILY Qty: 90 1RF budesonide-formoterol [Symbicort] 80-4.5 mcg/actuation HFA aerosol inhaler 2 puff inhalation BID Qty: 10.2 6RF Other Ambulatory Orders: Basic Metabolic Panel (Routine) Timeframe: [id number] Location: Determined by Patient Ordered By: Kaleb MENDEZ cardiac event monitor (Routine) Timeframe: 1 Month Location: Determined by Patient Ordered By: Mirna Howard Date of admission: 10/27/24 13:52 Primary Care Provider: Mark Siddiqui Admitting Provider: Mary Grider Attending physician on admission: Mary Grider Condition: Stable Hospitalist MIPS Heart Failure (Exclusion) Patient has history of Heart Transplant or Left Ventricular Assistive Device?: No IF YES, STOP HERE Heart Failure (Qualifier) Patient has current or prior documentation of LVEF less than or equal to 40%, or mod/servere depressed LVSF?: Yes IF NO, STOP HERE If Yes, Heart Failure (Qualifier) Patient was prescribed or already taking an Angiotensin-Converting Enzyme (MARIANNE) Inhibitor, or Antiotensin Receptor Blade (ARB): Yes Patient was prescribed or already taking bisoprolol, carvedilol, or sustained release metoprolol succinate: Yes
--- NOTE | 2024-10-29 15:38 | PC.NURSE ---
discharge instructions given to p t- she verbalized understanding of all instructions; wound care/activity and follow up appointments and medications- etc- home via wheelchair accompanied by staff to vehicle driven by family
== END 2024-10-29 15:48 | disposition home or self-care (01) | DRG 192 ==
LOC: ANHED 10-24 00:57 → ANHIMU 10-24 04:33 → ANH2MED 10-26 18:30 → ANHIMU 10-29 14:57 → ANH2MED 10-30 10:25 → ANHCPC 10-30 10:25
PROVIDERS: General Practice; Internal Medicine; Internal Medicine Interventional Cardiology; Nurse Practitioner; Nurse Practitioner Family; Registered Nurse; Admitting Provider Internal Medicine; Emergency Provider Emergency Medicine; PCP Internal Medicine; Visit Provider Internal Medicine
PROC: 4A023N7 Measurement of Cardiac Sampling and Pressure, Left Heart, Percutaneous Approach (ICD-10-PCS; CPT 93452; principal; 2024-10-28 12:00)
PROC: 4A023N7 Measurement of Cardiac Sampling and Pressure, Left Heart, Percutaneous Approach (ICD-10-PCS; 2024-10-28 12:00)
DX: I11.0 Hypertensive heart disease with heart failure (principal); I50.21 Acute systolic (congestive) heart failure; I48.91 Unspecified atrial fibrillation; E78.2 Mixed hyperlipidemia; E66.9 Obesity, unspecified; E55.9 Vitamin D deficiency, unspecified; I43 Cardiomyopathy in diseases classified elsewhere; I27.20 Pulmonary hypertension, unspecified; J45.909 Unspecified asthma, uncomplicated; R73.03 Prediabetes; Z88.0 Allergy status to penicillin; Z68.33 Body mass index [BMI] 33.0-33.9, adult
CPT/HCPCS: 36415; 71046; 71275; 80048; 80053; 80061; 81001; 82607; 82728; 82746; 83036; 83540; 83550; 83735; 83880; 84132; 84484; 85025; 85027; 85380; 85610; 85730; 93005; 93458; 93970; 94640; 96365; 96374; 96375; 96376; 97161; 97165; 99285; A9270; C1769; C1887; C1894; C8929; G0269; G0378; G0379; J1644; J1938; J2003; J2250; J2305; J3010; J3475; J7040; Q9957; Q9967